=== PATIENT | male | born 1960 | race Caucasian/White ===

== ENCOUNTER 2018-04-15 12:25 | Day surgery (SDC) | payer MEDICAID ==
[~2018-04-15] VITALS: Ht 172.7 cm; Wt 77.7 kg
[2018-04-15] MEDS ORDERED: calcium PO (12:40)
[2018-04-15] MEDS ORDERED: CLOB15CR4 TOP (12:41)
[2018-04-15] MEDS ORDERED: INSU100C10 SQ ×2 (12:44→12:45)
[2018-04-15] MEDS ORDERED: MIDAZolam 5mg/5ml vial ONE (12:47)
[2018-04-15] MEDS ORDERED: fentaNYL/PF 50MCG/1 ML 2ML syringe ONE (12:47)
[2018-04-15] MEDS ORDERED: LIDOcaine Viscous 15ml cup ONE (12:47)
[2018-04-15 12:53] VITALS: BP 146/88
[2018-04-15 13:58] VITALS: BP 137/90
[2018-04-15 14:08] VITALS: BP 139/87
[2018-04-15 14:18] VITALS: BP 126/78
[2018-04-15 14:28] VITALS: BP 113/74
== END 2018-04-15 15:15 | disposition home or self-care (01) ==
LOC: GI LAB 12:25
PROVIDERS: ATTEND Internal Medicine Gastroenterology
DX: B37.81 Candidal esophagitis (principal); I85.00 Esophageal varices without bleeding; K76.6 Portal hypertension; K31.89 Other diseases of stomach and duodenum; D50.0 Iron deficiency anemia secondary to blood loss (chronic); E11.9 Type 2 diabetes mellitus without complications; L40.8 Other psoriasis; Z79.4 Long term (current) use of insulin; Z87.891 Personal history of nicotine dependence; Z79.899 Other long term (current) drug therapy; Z98.890 Other specified postprocedural states
CPT/HCPCS: 43239; 99152; J2250; J3010; J7030; A4620; G0500

== ENCOUNTER 2018-10-18 16:17 | Inpatient (IN) | payer MEDICAID | END 2018-10-27 13:50 | disposition left against medical advice (07) | LOC: ER 16:17 → SUR 3N 10-21 19:22 → ED HOLD 20:33 → ICU 2S 23:18 | DX: A41.9 Sepsis, unspecified organism (principal); K72.00 Acute and subacute hepatic failure without coma; L03.90 Cellulitis, unspecified; K74.60 Unspecified cirrhosis of liver ==

== ENCOUNTER 2018-11-04 15:56 | Inpatient (IN) | payer MEDICAID ==
[~2018-11-04] VITALS: Ht 172.7 cm; Wt 75.0 kg
[~2018-11-04 15:56] MED LIST: CEPH500C5 PO; CLOB15CR4 TOP; FURO40TA4 PO; INSU100C10 SQ
[2018-11-04] MEDS ORDERED: ceFAZolin 1GM/D5W- ADD-VANTAGE 50 ML IV ONE (17:25)
[2018-11-04] MEDS ORDERED: acetaminophen 325mg tablet PO STA (17:32)
--- NOTE | 2018-11-04 17:35 | NUR ---
TO ER WITH C/O LOWER EXTREM EDEMA AND PAIN. 3-4+ EDEMA NOTED TO LOWER EXTREMS. REDNESS AND EXCORIATION TO RIGHT LOWER LEG AND RIGHT THIGH. DIFFICULTY MOVING AROUND. POOR HISTORIAN[place]
[2018-11-04 18:19] LABS: BASOPHILS % (AUTO) 0.2 % (0-1); EOSINOPHILS % (AUTO) 0.1 % (0-6); HEMOGLOBIN 10.9 g/dl (14.0-17.9); LYMPHOCYTES # (AUTO) 0.6 X10'3 (1.1-4.8); MEAN CORPUSCULAR HEMOGLOBIN 36.5 PG (27.0-31.0); MEAN CORPUSCULAR HGB CONC 35.1 g/dL (33.0-36.5); MEAN CORPUSCULAR VOLUME 103.8 FL (78-98); MONOCYTES # (AUTO) 0.2 X10'3 (0-0.9); MONOCYTES % (AUTO) 3.3 % (2-12); NEUTROPHILS # (AUTO) 6.1 X10'3 (1.8-7.7); NEUTROPHILS % (AUTO) 88.4 % (42-75); PLATELET COUNT 106 X10'3 (140-440); RED BLOOD COUNT 2.98 X10'6 (4.70-6.10); RED CELL DISTRIBUTION WIDTH 17.3 % (11.5-14.5); WHITE BLOOD COUNT 6.9 X10'3 (4.5-11.0)
[2018-11-04 18:32] LABS: ALANINE AMINOTRANSFERASE 54 U/L (12-78); ALBUMIN 1.5 G/DL (3.4-5.0); ALKALINE PHOSPHATASE 125 IU/L (46-116); ANION GAP 8 (8-16); BILIRUBIN,TOTAL 5.9 MG/DL (0.1-1.0); BLOOD UREA NITROGEN 12 MG/DL (7-18); BUN/CREATININE RATIO 14.1 (5.4-32.0); CALCIUM 7.3 MG/DL (8.5-10.1); CHLORIDE 101 MMOL/L (99-107); CREATININE 0.85 MG/DL (0.60-1.10); GLUCOSE 122 MG/DL (70-104); PROTHROMBIN TIME 19.7 SECONDS (9.0-12.0); SODIUM 130 MMOL/L (135-145); TOTAL CARBON DIOXIDE 20.7 MMOL/L (24-32); eGFR > 90 ML/MIN
[2018-11-04 18:33] LABS: ALBUMIN/GLOBULIN RATIO 0.3 (1.1-1.5); ASPARTATE AMINO TRANSFERASE 67 U/L (10-37); PARTIAL THROMBOPLASTIN TIME 40 SECONDS (22-32); POTASSIUM 3.1 MMOL/L (3.5-5.1); TOTAL PROTEIN 6.1 G/DL (6.4-8.2)
--- NOTE | 2018-11-04 19:30 | NUR ---
PATIENT HAD ELEVATED LACTIC ACID, VERBALIZED TO DR. SAM THAT THE NS BOLUS WAS GOING SLOW. DR. SAM VERBALIZED THAT THIS IS GOING TO BE FINE THAT WE NEED TO SAVE IV DUE TO PATIENT BEING HARD STICK, AND THAT THE LEVEL OF SEPSIS DR. SAM IS NOT CONCERNED FOR THE 30mL PER KG.
[2018-11-04] MEDS ORDERED: INSU100C10 SQ (19:40)
[2018-11-04] MEDS ORDERED: normal saline 1000ML IV soln IV ONE (20:20)
[2018-11-04] MEDS ORDERED: mag hydrox/Alum hydrox/simeth 30ml oral suspension PO PRN (21:25)
[2018-11-04] MEDS ORDERED: ondansetron/PF 4mg/2ml inj IV PRN (21:25)
[2018-11-04] MEDS ORDERED: morphine 4 MG/ML inj SYRINge IV PRN (21:25)
[2018-11-04] MEDS ORDERED: magnesium hydroxide 30ml (MOM) UD suspension PO PRN (21:25)
[2018-11-04] MEDS ORDERED: acetaminophen 325mg tablet PO PRN (21:25)
[2018-11-04] MEDS ORDERED: insulin Lispro (HumaLOG) vial - multi-dose SQ SCH (21:30)
[2018-11-04] MEDS ORDERED: dextrose ORAL solution 15 GM/59 ML bottle PO PRN ×2 (21:30)
[2018-11-04] MEDS ORDERED: dextrose 50%-water 50ml dispensing syringe IV PRN ×2 (21:30)
[2018-11-04] MEDS ORDERED: MESSAGE TO PHARMACY PO ONE (21:30)
[2018-11-04] MEDS ORDERED: glucagon, human recombinant 1mg kit SUBCUT PRN (21:30)
[2018-11-04 23:15] VITALS: BP 115/63
[2018-11-04] MEDS: ceFAZolin 1GM/D5W- ADD-VANTAGE 50 ML IV SCH (23:23)
[2018-11-05] MEDS: morphine 4 MG/ML inj SYRINge IV PRN ×4 (03:14→19:38)
--- NOTE | 2018-11-05 06:30 | NUR ---
Patient in room BHARAT 357. I have received report from Erin ROSALES and had the opportunity to ask questions and assume patient care.
--- NOTE | 2018-11-05 06:32 | NUR ---
Problems reprioritized. Patient report given, questions answered & plan of care reviewed with BOBBY Grover. Addendum: 11/05/18 at 0632 by Erin Snyder RN Amended: Links added.
[2018-11-05 07:08] LABS: BASOPHILS % (AUTO) 0.2 % (0-1); EOSINOPHILS # (AUTO) 0.1 X10'3 (0-0.9); HEMATOCRIT 27.6 % (42.0-52.0); HEMOGLOBIN 9.8 g/dl (14.0-17.9); LYMPHOCYTES # (AUTO) 0.8 X10'3 (1.1-4.8); LYMPHOCYTES % (AUTO) 13.2 % (21-51); MEAN CORPUSCULAR HGB CONC 35.6 g/dL (33.0-36.5); MEAN CORPUSCULAR VOLUME 104.1 FL (78-98); MONOCYTES # (AUTO) 0.4 X10'3 (0-0.9); MONOCYTES % (AUTO) 6.6 % (2-12); NEUTROPHILS # (AUTO) 4.9 X10'3 (1.8-7.7); PLATELET COUNT 85 X10'3 (140-440); RED BLOOD COUNT 2.65 X10'6 (4.70-6.10); RED CELL DISTRIBUTION WIDTH 17.6 % (11.5-14.5); WHITE BLOOD COUNT 6.2 X10'3 (4.5-11.0)
[2018-11-05 07:32] LABS: ALANINE AMINOTRANSFERASE 42 U/L (12-78); ALBUMIN 1.2 G/DL (3.4-5.0); ALKALINE PHOSPHATASE 99 IU/L (46-116); ANION GAP 9 (8-16); ASPARTATE AMINO TRANSFERASE 50 U/L (10-37); BILIRUBIN,TOTAL 4.9 MG/DL (0.1-1.0); BLOOD UREA NITROGEN 15 MG/DL (7-18); BUN/CREATININE RATIO 17.4 (5.4-32.0); CALCIUM 7.2 MG/DL (8.5-10.1); CHLORIDE 103 MMOL/L (99-107); CREATININE 0.86 MG/DL (0.60-1.10); GLUCOSE 132 MG/DL (70-104); POTASSIUM 3.1 MMOL/L (3.5-5.1); SODIUM 133 MMOL/L (135-145); eGFR > 90 ML/MIN
[2018-11-05 07:34] LABS: ALBUMIN/GLOBULIN RATIO 0.3 (1.1-1.5); TOTAL PROTEIN 5.1 G/DL (6.4-8.2)
[2018-11-05] MEDS: ceFAZolin 1GM/D5W- ADD-VANTAGE 50 ML IV SCH (07:34)
[2018-11-05] MEDS: spironolactone 25 MG tablet PO SCH (07:34)
[2018-11-05 08:14] VITALS: BP 103/59
--- NOTE | 2018-11-05 09:53 | NUR ---
Dr. Davidson informed of positive blood culture from IV 11/04 gram negative rods. No new orders. Also informed MD of K 3.1, stated to replace per protocol.
[2018-11-05] MEDS ORDERED: potassium Cl 20 mEq SR tablet PO PRN (09:55)
[2018-11-05] MEDS ORDERED: potassium Cl 40MEQ/NS 500ml 500 ML IV PRN ×2 (09:55)
[2018-11-05] MEDS: potassium Cl 20 mEq SR tablet PO PRN ×2 (11:47→16:55)
[2018-11-05 11:54] VITALS: BP 107/57
[2018-11-05] MEDS: CEFEPIME 2 GM in NS 100ml IV.SOLN 100 ML IV SCH ×2 (14:00→19:28)
[2018-11-05] MEDS: lactulose 20gm/30ml cup PO SCH ×3 (14:00→20:00)
[2018-11-05 14:58] LABS: HIV ANTIBODY 1&2 RAPID NON-REACTIVE (Neg)
--- NOTE | 2018-11-05 15:32 | NUR ---
paged regarding positive blood culture in anareobic bottle, gram negative rods. Awaiting call back.
--- NOTE | 2018-11-05 15:55 | NUR ---
Extended PIV inserted to the left upper arm basilic vein x 1 attempt ussing ultrasound. Suman well. Addendum: 11/05/18 at 1556 by Yolis Jorgensen RN Amended: Links added.
[2018-11-05] MEDS ORDERED: cefepime 2gm inj IV SCH (16:00)
[2018-11-05] MEDS ORDERED: iohexol 300mg/ml 100ml inj. ONE (16:02)
--- NOTE | 2018-11-05 16:46 | NUR ---
Dr. Davidson informed of CT and Abdomen US results. No new orders at this time.
--- NOTE | 2018-11-05 18:56 | NUR ---
Problems reprioritized. Patient report given, questions answered & plan of care reviewed with Erin ROSALES.
[2018-11-05 19:00] VITALS: BP 126/62
[2018-11-05] MEDS: lactobacillus rhamnosus 10,000 MMU CELLS/CAPSULE PO SCH (19:28)
[2018-11-05] MEDS: insulin glargine (Lantus) pen - multi-dose SQ SCH (20:56)
[2018-11-06] VITALS: BP 106/65
[2018-11-06] MEDS: lactulose 20gm/30ml cup PO SCH ×4 (02:00→19:27)
[2018-11-06] MEDS: CEFEPIME 2 GM in NS 100ml IV.SOLN 100 ML IV SCH ×3 (03:39→19:28)
[2018-11-06] MEDS: morphine 4 MG/ML inj SYRINge IV PRN ×3 (03:47→19:27)
[2018-11-06 04:45] LABS: BASOPHILS % (AUTO) 0.2 % (0-1); EOSINOPHILS # (AUTO) 0.3 X10'3 (0-0.9); EOSINOPHILS % (AUTO) 4.2 % (0-6); HEMATOCRIT 27.6 % (42.0-52.0); HEMOGLOBIN 9.8 g/dl (14.0-17.9); LYMPHOCYTES # (AUTO) 1.1 X10'3 (1.1-4.8); LYMPHOCYTES % (AUTO) 15.7 % (21-51); MEAN CORPUSCULAR HGB CONC 35.7 g/dL (33.0-36.5); MEAN CORPUSCULAR VOLUME 103.8 FL (78-98); MEAN PLATELET VOLUME 7.8 FL (7.4-10.4); MONOCYTES # (AUTO) 1.1 X10'3 (0-0.9); MONOCYTES % (AUTO) 15.8 % (2-12); NEUTROPHILS # (AUTO) 4.5 X10'3 (1.8-7.7); NEUTROPHILS % (AUTO) 64.1 % (42-75); PLATELET COUNT 90 X10'3 (140-440); RED BLOOD COUNT 2.65 X10'6 (4.70-6.10); RED CELL DISTRIBUTION WIDTH 17.7 % (11.5-14.5)
[2018-11-06 04:55] LABS: ALANINE AMINOTRANSFERASE 37 U/L (12-78); ALBUMIN 1.2 G/DL (3.4-5.0); ALKALINE PHOSPHATASE 95 IU/L (46-116); ANION GAP 6 (8-16); ASPARTATE AMINO TRANSFERASE 47 U/L (10-37); BILIRUBIN,TOTAL 4.1 MG/DL (0.1-1.0); BLOOD UREA NITROGEN 15 MG/DL (7-18); BUN/CREATININE RATIO 21.4 (5.4-32.0); CALCIUM 7.1 MG/DL (8.5-10.1); CHLORIDE 104 MMOL/L (99-107); GLUCOSE 110 MG/DL (70-104); POTASSIUM 3.5 MMOL/L (3.5-5.1); SODIUM 134 MMOL/L (135-145); eGFR > 90 ML/MIN
[2018-11-06 05:11] LABS: ALBUMIN/GLOBULIN RATIO 0.3 (1.1-1.5); TOTAL PROTEIN 5.2 G/DL (6.4-8.2)
--- NOTE | 2018-11-06 06:22 | NUR ---
Problems reprioritized. Patient report given, questions answered & plan of care reviewed with BOBBY Robbins. Addendum: 11/06/18 at 0623 by Erin Snyder RN Amended: Links added.
--- NOTE | 2018-11-06 06:29 | NUR ---
Patient in room BHARAT 357. I have received report from BOBBY Khan and had the opportunity to ask questions and assume patient care.
[2018-11-06 07:00] VITALS: BP 123/58
[2018-11-06] MEDS: lactobacillus rhamnosus 10,000 MMU CELLS/CAPSULE PO SCH ×2 (08:46→19:27)
[2018-11-06] MEDS: spironolactone 25 MG tablet PO SCH (08:46)
[2018-11-06 11:00] VITALS: BP 123/75
--- NOTE | 2018-11-06 18:16 | NUR ---
Problems reprioritized. Patient report given, questions answered & plan of care reviewed with BOBBY Wall.
[2018-11-06] MEDS: rifaximin 550mg tablet PO SCH (19:27)
[2018-11-06 20:00] VITALS: BP 128/69
[2018-11-06] MEDS: insulin glargine (Lantus) pen - multi-dose SQ SCH (21:00)
[2018-11-07] VITALS: BP 124/79
[2018-11-07] MEDS: morphine 4 MG/ML inj SYRINge IV PRN ×3 (01:12→19:01)
[2018-11-07] MEDS: lactulose 20gm/30ml cup PO SCH ×4 (02:36→19:42)
[2018-11-07] MEDS: CEFEPIME 2 GM in NS 100ml IV.SOLN 100 ML IV SCH ×3 (04:40→19:42)
[2018-11-07 05:10] LABS: BASOPHILS # (AUTO) 0.1 X10'3 (0-0.2); BASOPHILS % (AUTO) 1.1 % (0-1); EOSINOPHILS # (AUTO) 0.4 X10'3 (0-0.9); EOSINOPHILS % (AUTO) 4.5 % (0-6); HEMATOCRIT 29.6 % (42.0-52.0); HEMOGLOBIN 10.5 g/dl (14.0-17.9); LYMPHOCYTES # (AUTO) 1.5 X10'3 (1.1-4.8); LYMPHOCYTES % (AUTO) 18.3 % (21-51); MEAN CORPUSCULAR HEMOGLOBIN 36.8 PG (27.0-31.0); MEAN CORPUSCULAR HGB CONC 35.4 g/dL (33.0-36.5); MEAN PLATELET VOLUME 7.8 FL (7.4-10.4); MONOCYTES # (AUTO) 1.3 X10'3 (0-0.9); MONOCYTES % (AUTO) 15.8 % (2-12); NEUTROPHILS # (AUTO) 4.9 X10'3 (1.8-7.7); NEUTROPHILS % (AUTO) 60.3 % (42-75); PLATELET COUNT 87 X10'3 (140-440); RED BLOOD COUNT 2.84 X10'6 (4.70-6.10); RED CELL DISTRIBUTION WIDTH 17.8 % (11.5-14.5); WHITE BLOOD COUNT 8.1 X10'3 (4.5-11.0)
[2018-11-07 05:36] LABS: ALANINE AMINOTRANSFERASE 34 U/L (12-78); ALBUMIN 1.2 G/DL (3.4-5.0); ALKALINE PHOSPHATASE 104 IU/L (46-116); ANION GAP 8 (8-16); ASPARTATE AMINO TRANSFERASE 53 U/L (10-37); BILIRUBIN,TOTAL 4.1 MG/DL (0.1-1.0); BLOOD UREA NITROGEN 11 MG/DL (7-18); BUN/CREATININE RATIO 16.7 (5.4-32.0); CALCIUM 7.2 MG/DL (8.5-10.1); CHLORIDE 101 MMOL/L (99-107); CREATININE 0.66 MG/DL (0.60-1.10); GLUCOSE 105 MG/DL (70-104); POTASSIUM 3.5 MMOL/L (3.5-5.1); SODIUM 133 MMOL/L (135-145); TOTAL CARBON DIOXIDE 23.9 MMOL/L (24-32); eGFR > 90 ML/MIN
[2018-11-07 05:44] LABS: ALBUMIN/GLOBULIN RATIO 0.3 (1.1-1.5); TOTAL PROTEIN 5.4 G/DL (6.4-8.2)
--- NOTE | 2018-11-07 06:30 | NUR ---
Patient in room BHARAT 357. I have received report from BOBBY Wall and had the opportunity to ask questions and assume patient care.
[2018-11-07 07:00] VITALS: BP 107/52
[2018-11-07] MEDS: spironolactone 25 MG tablet PO SCH (07:51)
[2018-11-07] MEDS: lactobacillus rhamnosus 10,000 MMU CELLS/CAPSULE PO SCH ×2 (07:51→19:42)
[2018-11-07] MEDS: rifaximin 550mg tablet PO SCH ×2 (07:56→19:42)
[2018-11-07 11:00] VITALS: BP 124/75
[2018-11-07 13:20] LABS: HBSAG SCREEN Positive (Negative); HEP A AB, IGM Negative (Negative); HEP B CORE AB, IGM Negative (Negative); HEPATITIS C ANTIBODY >11.0 s/co ratio (0.0-0.9)
[2018-11-07 18:00] VITALS: BP 107/68
[2018-11-07] MEDS: insulin glargine (Lantus) pen - multi-dose SQ SCH (21:00)
[2018-11-08] VITALS: BP 130/77
[2018-11-08] MEDS: morphine 4 MG/ML inj SYRINge IV PRN ×4 (00:48→19:09)
[2018-11-08] MEDS: lactulose 20gm/30ml cup PO SCH ×4 (02:00→20:41)
[2018-11-08] MEDS: CEFEPIME 2 GM in NS 100ml IV.SOLN 100 ML IV SCH (03:12)
[2018-11-08 04:13] LABS: BASOPHILS # (AUTO) 0.1 X10'3 (0-0.2); EOSINOPHILS # (AUTO) 0.4 X10'3 (0-0.9); EOSINOPHILS % (AUTO) 5.1 % (0-6); HEMATOCRIT 31.4 % (42.0-52.0); HEMOGLOBIN 10.7 g/dl (14.0-17.9); LYMPHOCYTES # (AUTO) 1.3 X10'3 (1.1-4.8); LYMPHOCYTES % (AUTO) 16.9 % (21-51); MEAN CORPUSCULAR HEMOGLOBIN 35.9 PG (27.0-31.0); MEAN CORPUSCULAR HGB CONC 34.1 g/dL (33.0-36.5); MEAN CORPUSCULAR VOLUME 105.2 FL (78-98); MEAN PLATELET VOLUME 8.2 FL (7.4-10.4); MONOCYTES # (AUTO) 1.2 X10'3 (0-0.9); MONOCYTES % (AUTO) 15.5 % (2-12); NEUTROPHILS # (AUTO) 4.8 X10'3 (1.8-7.7); NEUTROPHILS % (AUTO) 61.5 % (42-75); PLATELET COUNT 92 X10'3 (140-440); RED BLOOD COUNT 2.99 X10'6 (4.70-6.10); RED CELL DISTRIBUTION WIDTH 18.1 % (11.5-14.5); WHITE BLOOD COUNT 7.7 X10'3 (4.5-11.0)
[2018-11-08 04:30] LABS: ALANINE AMINOTRANSFERASE 38 U/L (12-78); ALBUMIN 1.3 G/DL (3.4-5.0); ALKALINE PHOSPHATASE 114 IU/L (46-116); ANION GAP 3 (8-16); ASPARTATE AMINO TRANSFERASE 68 U/L (10-37); BILIRUBIN,TOTAL 4.6 MG/DL (0.1-1.0); BLOOD UREA NITROGEN 9 MG/DL (7-18); BUN/CREATININE RATIO 12.7 (5.4-32.0); CALCIUM 6.5 MG/DL (8.5-10.1); CHLORIDE 103 MMOL/L (99-107); CREATININE 0.71 MG/DL (0.60-1.10); GLUCOSE 114 MG/DL (70-104); POTASSIUM 3.6 MMOL/L (3.5-5.1); SODIUM 132 MMOL/L (135-145); TOTAL CARBON DIOXIDE 26.1 MMOL/L (24-32); eGFR > 90 ML/MIN
[2018-11-08 04:33] LABS: ALBUMIN/GLOBULIN RATIO 0.3 (1.1-1.5); TOTAL PROTEIN 5.7 G/DL (6.4-8.2)
--- NOTE | 2018-11-08 06:09 | NUR ---
Patient in room BHARAT 357. I have received report from JOAQUIM ROSALES and had the opportunity to ask questions and assume patient care.
[2018-11-08 07:00] VITALS: BP 135/85
[2018-11-08] MEDS: rifaximin 550mg tablet PO SCH ×2 (08:00→20:41)
[2018-11-08] MEDS: lactobacillus rhamnosus 10,000 MMU CELLS/CAPSULE PO SCH ×2 (08:13→20:41)
[2018-11-08] MEDS: spironolactone 25 MG tablet PO SCH (08:13)
--- NOTE | 2018-11-08 08:20 | NUR ---
XIFAXAN NOT IN OMNIC CELL, PT SPECIFIC BOX, OR BLUE BOX, SENT MESSAGE TO PHARMACY
[2018-11-08] MEDS: CefTRIAXone 2gm/D5W 50ml 50 ML IV SCH (13:42)
[2018-11-08] MEDS: clindamycin-Cleocin 900mg/D5W 50 ML IV SCH ×2 (16:47→23:48)
--- NOTE | 2018-11-08 18:10 | NUR ---
GAVE REPORT TO CHILANGO ROSALES
--- NOTE | 2018-11-08 18:38 | NUR ---
Received report from Kimberley ROSALES pt is eating dinner has visitors at bedside, in no apparent distress, call light within reach
[2018-11-08 19:00] VITALS: BP 111/70
[2018-11-08] MEDS: insulin glargine (Lantus) pen - multi-dose SQ SCH (21:00)
[2018-11-09 00:21] VITALS: BP 119/72
[2018-11-09] MEDS: morphine 4 MG/ML inj SYRINge IV PRN ×5 (01:04→19:58)
[2018-11-09] MEDS: lactulose 20gm/30ml cup PO SCH ×4 (01:36→19:57)
--- NOTE | 2018-11-09 06:25 | NUR ---
Gave report to ana ROSALES pt is awake and alert on RA eating a cracker in no apparent distress, call light and items of freq use within reach.
[2018-11-09 06:53] LABS: BASOPHILS # (AUTO) 0.1 X10'3 (0-0.2); BASOPHILS % (AUTO) 0.9 % (0-1); EOSINOPHILS # (AUTO) 0.4 X10'3 (0-0.9); EOSINOPHILS % (AUTO) 5.3 % (0-6); HEMATOCRIT 31.1 % (42.0-52.0); LYMPHOCYTES # (AUTO) 1.3 X10'3 (1.1-4.8); LYMPHOCYTES % (AUTO) 16.3 % (21-51); MEAN CORPUSCULAR HEMOGLOBIN 36.9 PG (27.0-31.0); MEAN CORPUSCULAR HGB CONC 35.3 g/dL (33.0-36.5); MEAN CORPUSCULAR VOLUME 104.5 FL (78-98); MEAN PLATELET VOLUME 7.9 FL (7.4-10.4); MONOCYTES # (AUTO) 1.3 X10'3 (0-0.9); MONOCYTES % (AUTO) 15.6 % (2-12); NEUTROPHILS % (AUTO) 61.9 % (42-75); PLATELET COUNT 84 X10'3 (140-440); RED BLOOD COUNT 2.98 X10'6 (4.70-6.10); RED CELL DISTRIBUTION WIDTH 17.9 % (11.5-14.5)
[2018-11-09 07:00] VITALS: BP 131/76
[2018-11-09] MEDS: spironolactone 25 MG tablet PO SCH (07:41)
[2018-11-09] MEDS: lactobacillus rhamnosus 10,000 MMU CELLS/CAPSULE PO SCH ×2 (07:41→19:58)
[2018-11-09] MEDS: rifaximin 550mg tablet PO SCH ×2 (07:42→19:58)
[2018-11-09] MEDS: clindamycin-Cleocin 900mg/D5W 50 ML IV SCH ×3 (07:42→23:37)
[2018-11-09] MEDS ORDERED: furosemide 20 MG/2 ML vial IV SCH (08:00)
[2018-11-09] MEDS: CefTRIAXone 2gm/D5W 50ml 50 ML IV SCH (08:56)
[2018-11-09 09:23] LABS: ALANINE AMINOTRANSFERASE 40 U/L (12-78); ALBUMIN 1.2 G/DL (3.4-5.0); ALKALINE PHOSPHATASE 114 IU/L (46-116); ANION GAP 8 (8-16); ASPARTATE AMINO TRANSFERASE 86 U/L (10-37); BILIRUBIN,TOTAL 3.4 MG/DL (0.1-1.0); BLOOD UREA NITROGEN 9 MG/DL (7-18); BUN/CREATININE RATIO 12.7 (5.4-32.0); CHLORIDE 102 MMOL/L (99-107); CREATININE 0.71 MG/DL (0.60-1.10); GLUCOSE 143 MG/DL (70-104); POTASSIUM 3.9 MMOL/L (3.5-5.1); SODIUM 133 MMOL/L (135-145); TOTAL CARBON DIOXIDE 23.3 MMOL/L (24-32); eGFR > 90 ML/MIN
[2018-11-09 09:25] LABS: ALBUMIN/GLOBULIN RATIO 0.3 (1.1-1.5); TOTAL PROTEIN 5.6 G/DL (6.4-8.2)
[2018-11-09 09:54] LABS: ANISOCYTOSIS 1+; PLATELET ESTIMATE DECREASED; POLYCHROMASIA FEW; ROULEAUX 1+; TOTAL CELLS COUNTED 100
[2018-11-09 09:55] LABS: POIKILOCYTOSIS FEW; TOXIC GRANULATION 2+
--- NOTE | 2018-11-09 14:42 | NUR ---
Initial: Pt admit with anasarca, liver failure and bilat cellulitis. Per MD progress notes cellulitis positive blood cultures for Escherichia coli. Per MD progress notes pt with hepatic enceph and pt's cognition is markedly improved, on Lactulose. Per MD notes pt with thickening of the distal colon thought initially to be a rectal mass on CT of 10/18/2018, pt with repeat CT thought to possibly be infectious colitis however per Infectious Disease pt unlikely to have C.diff. Pt currently on mech soft diet with documented PO intake 75-100% meeting nutrient needs with adequate protein to aid in skin integrity. [facility] 11/08. Will continue to follow and make recommendations as appropriate. Recommendations: 1) Continue with mech soft diet 2) Wt per rx Addendum: 11/09/18 at [address] Amended: Links added.
--- NOTE | 2018-11-09 18:18 | NUR ---
Problems reprioritized. Patient report given, questions answered & plan of care reviewed with CHILANGO ROSALES.
--- NOTE | 2018-11-09 18:40 | NUR ---
Received report from Gwendolyn ROSALES pt is awake on RA getting ready to eat dinner, in no apparent distress,
[2018-11-09 19:00] VITALS: BP 130/82
[2018-11-09] MEDS: insulin glargine (Lantus) pen - multi-dose SQ SCH (21:00)
[2018-11-09] MEDS: furosemide 20 MG/2 ML vial IV SCH (22:19)
--- NOTE | 2018-11-09 23:34 | NUR ---
Spoke with Dr. Mancera regarding pain medication for pt he reordered morphine 2mg Q4H due to pt requesting continuity of medication.
[2018-11-09] MEDS: morphine 2 MG/ML inj. syringe IV PRN (23:57)
[2018-11-10 00:28] VITALS: BP 142/89
[2018-11-10] MEDS: lactulose 20gm/30ml cup PO SCH ×3 (01:29→19:56)
[2018-11-10] MEDS: morphine 2 MG/ML inj. syringe IV PRN ×4 (04:27→19:54)
--- NOTE | 2018-11-10 06:30 | NUR ---
Patient in room BHARAT 357. I have received report from Oumou ROSALES and had the opportunity to ask questions and assume patient care.
--- NOTE | 2018-11-10 06:33 | NUR ---
Gave report to Porter ROSALES pt is awake requesting milk and ice cream, on RA in no apparent distress, call light and items of freq use within reach.
[2018-11-10 07:02] LABS: ALANINE AMINOTRANSFERASE 43 U/L (12-78); ALBUMIN 1.3 G/DL (3.4-5.0); ALKALINE PHOSPHATASE 125 IU/L (46-116); ANION GAP 5 (8-16); ASPARTATE AMINO TRANSFERASE 98 U/L (10-37); BILIRUBIN,TOTAL 3.8 MG/DL (0.1-1.0); BLOOD UREA NITROGEN 11 MG/DL (7-18); BUN/CREATININE RATIO 16.9 (5.4-32.0); CALCIUM 7.3 MG/DL (8.5-10.1); CHLORIDE 102 MMOL/L (99-107); CREATININE 0.65 MG/DL (0.60-1.10); SODIUM 133 MMOL/L (135-145); TOTAL CARBON DIOXIDE 25.7 MMOL/L (24-32); eGFR > 90 ML/MIN
[2018-11-10 07:22] LABS: ALBUMIN/GLOBULIN RATIO 0.3 (1.1-1.5); GLUCOSE 115 MG/DL (70-104)
[2018-11-10 07:51] VITALS: BP 142/88
[2018-11-10] MEDS: spironolactone 25 MG tablet PO SCH (09:23)
[2018-11-10] MEDS: lactobacillus rhamnosus 10,000 MMU CELLS/CAPSULE PO SCH ×2 (09:23→19:54)
[2018-11-10] MEDS: rifaximin 550mg tablet PO SCH ×2 (09:23→20:07)
[2018-11-10] MEDS: furosemide 20 MG/2 ML vial IV SCH ×2 (09:24→19:56)
[2018-11-10] MEDS: clindamycin-Cleocin 900mg/D5W 50 ML IV SCH ×2 (09:24→17:11)
[2018-11-10] MEDS: CefTRIAXone 2gm/D5W 50ml 50 ML IV SCH (10:38)
[2018-11-10 12:00] VITALS: BP 137/94
--- NOTE | 2018-11-10 18:30 | NUR ---
Patient in room BHARAT 357. I have received report from Porter ROSALES and had the opportunity to ask questions and assume patient care. Patient eating dinner, will continue to monitor.
--- NOTE | 2018-11-10 18:59 | NUR ---
Problems reprioritized. Patient report given, questions answered & plan of care reviewed with ELLIS ROSALES.
[2018-11-10 19:00] VITALS: BP 132/82
[2018-11-10] MEDS: insulin glargine (Lantus) pen - multi-dose SQ SCH (21:00)
[2018-11-11] VITALS: BP 129/79
[2018-11-11] MEDS: clindamycin-Cleocin 900mg/D5W 50 ML IV SCH ×4 (00:25→23:54)
[2018-11-11] MEDS: morphine 2 MG/ML inj. syringe IV PRN ×5 (00:32→21:06)
[2018-11-11] MEDS: lactulose 20gm/30ml cup PO SCH ×4 (02:36→20:00)
--- NOTE | 2018-11-11 06:30 | NUR ---
Patient in room BHARAT 357. I have received report from BOBBY Briggs and had the opportunity to ask questions and assume patient care. Addendum: 11/11/18 at 1846 by Itzel Hilario RN BOBBY Johnson
--- NOTE | 2018-11-11 06:30 | NUR ---
Problems reprioritized. Patient report given, questions answered & plan of care reviewed with Itzel RN. Patient resting eyes closed respirations even.
[2018-11-11 06:39] LABS: BASOPHILS # (AUTO) 0.1 X10'3 (0-0.2); BASOPHILS % (AUTO) 0.8 % (0-1); EOSINOPHILS # (AUTO) 0.2 X10'3 (0-0.9); EOSINOPHILS % (AUTO) 2.5 % (0-6); HEMATOCRIT 33.3 % (42.0-52.0); HEMOGLOBIN 11.6 g/dl (14.0-17.9); LYMPHOCYTES # (AUTO) 1.3 X10'3 (1.1-4.8); MEAN CORPUSCULAR HEMOGLOBIN 36.4 PG (27.0-31.0); MEAN CORPUSCULAR HGB CONC 34.7 g/dL (33.0-36.5); MEAN CORPUSCULAR VOLUME 104.9 FL (78-98); MEAN PLATELET VOLUME 7.9 FL (7.4-10.4); MONOCYTES # (AUTO) 1.1 X10'3 (0-0.9); MONOCYTES % (AUTO) 13.2 % (2-12); NEUTROPHILS # (AUTO) 5.9 X10'3 (1.8-7.7); NEUTROPHILS % (AUTO) 68.5 % (42-75); PLATELET COUNT 92 X10'3 (140-440); RED BLOOD COUNT 3.17 X10'6 (4.70-6.10); RED CELL DISTRIBUTION WIDTH 19.1 % (11.5-14.5); WHITE BLOOD COUNT 8.7 X10'3 (4.5-11.0)
[2018-11-11 06:49] LABS: PROTHROMBIN TIME 17.8 SECONDS (9.0-12.0)
[2018-11-11 06:50] LABS: INR 1.8 INR
[2018-11-11 07:00] VITALS: BP 139/89
[2018-11-11 07:11] LABS: ALANINE AMINOTRANSFERASE 48 U/L (12-78); ALBUMIN 1.3 G/DL (3.4-5.0); ALKALINE PHOSPHATASE 133 IU/L (46-116); ANION GAP 4 (8-16); ASPARTATE AMINO TRANSFERASE 114 U/L (10-37); BILIRUBIN,TOTAL 4.2 MG/DL (0.1-1.0); BLOOD UREA NITROGEN 11 MG/DL (7-18); BUN/CREATININE RATIO 16.7 (5.4-32.0); CALCIUM 7.3 MG/DL (8.5-10.1); CHLORIDE 100 MMOL/L (99-107); CREATININE 0.66 MG/DL (0.60-1.10); SODIUM 131 MMOL/L (135-145); TOTAL CARBON DIOXIDE 26.7 MMOL/L (24-32); eGFR > 90 ML/MIN
[2018-11-11 07:18] LABS: ALBUMIN/GLOBULIN RATIO 0.3 (1.1-1.5); GLUCOSE 97 MG/DL (70-104); TOTAL PROTEIN 6.3 G/DL (6.4-8.2)
[2018-11-11] MEDS: rifaximin 550mg tablet PO SCH ×2 (08:04→19:58)
[2018-11-11] MEDS: lactobacillus rhamnosus 10,000 MMU CELLS/CAPSULE PO SCH ×2 (08:04→19:58)
[2018-11-11] MEDS: spironolactone 25 MG tablet PO SCH (08:04)
[2018-11-11] MEDS: furosemide 20 MG/2 ML vial IV SCH ×2 (08:06→20:00)
[2018-11-11] MEDS: CefTRIAXone 2gm/D5W 50ml 50 ML IV SCH (08:06)
[2018-11-11] MEDS ORDERED: LIDOcaine 1%/PF 5ML 10 MG/ML VIAL ONE (08:08)
[2018-11-11 08:11] LABS: ANISOCYTOSIS 2+; PLATELET ESTIMATE DECREASED
[2018-11-11 11:00] VITALS: BP 127/79
--- NOTE | 2018-11-11 18:44 | NUR ---
Problems reprioritized. Patient report given, questions answered & plan of care reviewed with BOBBY Khan.
--- NOTE | 2018-11-11 19:51 | NUR ---
Patient in room BHARAT 357. I have received report from BOBBY Robbins and had the opportunity to ask questions and assume patient care. Addendum: 11/11/18 at 1951 by Erin Snyder RN Amended: Links added.
[2018-11-11 20:00] VITALS: BP 133/82
[2018-11-11] MEDS: insulin glargine (Lantus) pen - multi-dose SQ SCH (21:00)
[2018-11-12] VITALS: BP 131/71
[2018-11-12] MEDS: morphine 2 MG/ML inj. syringe IV PRN ×3 (01:23→12:15)
[2018-11-12] MEDS: lactulose 20gm/30ml cup PO SCH ×4 (02:00→19:35)
--- NOTE | 2018-11-12 06:00 | NUR ---
Patient in room BHARAT 357. I have received report from Karoline ROSALES and had the opportunity to ask questions and assume patient care.
--- NOTE | 2018-11-12 06:15 | NUR ---
Problems reprioritized. Patient report given, questions answered & plan of care reviewed with BOBBY Grover. Addendum: 11/12/18 at 0615 by Erin Snyder RN Amended: Links added.
[2018-11-12 06:53] LABS: ALANINE AMINOTRANSFERASE 45 U/L (12-78); ALBUMIN 1.2 G/DL (3.4-5.0); ALBUMIN/GLOBULIN RATIO 0.3 (1.1-1.5); ALKALINE PHOSPHATASE 125 IU/L (46-116); ANION GAP 4 (8-16); ASPARTATE AMINO TRANSFERASE 103 U/L (10-37); BILIRUBIN,TOTAL 3.2 MG/DL (0.1-1.0); BLOOD UREA NITROGEN 12 MG/DL (7-18); BUN/CREATININE RATIO 18.5 (5.4-32.0); CHLORIDE 101 MMOL/L (99-107); CREATININE 0.65 MG/DL (0.60-1.10); GLUCOSE 109 MG/DL (70-104); POTASSIUM 3.8 MMOL/L (3.5-5.1); SODIUM 131 MMOL/L (135-145); TOTAL CARBON DIOXIDE 25.8 MMOL/L (24-32); TOTAL PROTEIN 5.7 G/DL (6.4-8.2); eGFR > 90 ML/MIN
[2018-11-12] MEDS: lactobacillus rhamnosus 10,000 MMU CELLS/CAPSULE PO SCH ×2 (07:46→19:31)
[2018-11-12] MEDS: rifaximin 550mg tablet PO SCH ×2 (07:46→19:31)
[2018-11-12] MEDS: clindamycin-Cleocin 900mg/D5W 50 ML IV SCH ×3 (07:46→23:23)
[2018-11-12] MEDS: spironolactone 25 MG tablet PO SCH (07:46)
[2018-11-12] MEDS: furosemide 20 MG/2 ML vial IV SCH ×2 (07:47→19:34)
[2018-11-12 07:58] VITALS: BP 146/82
[2018-11-12] MEDS: CefTRIAXone 2gm/D5W 50ml 50 ML IV SCH (08:58)
[2018-11-12 11:48] VITALS: BP 130/80
[2018-11-12] MEDS: oxyCODONE IR 5mg (immed. release) tablet PO PRN ×2 (16:23→20:22)
--- NOTE | 2018-11-12 18:19 | NUR ---
Problems reprioritized. Patient report given, questions answered & plan of care reviewed with Erin ROSALES.
--- NOTE | 2018-11-12 18:24 | NUR ---
Student documentation: I have reviewed and agree with all interventions, assessments performed and documented by Myrna Student Nurse. Student Medication Administration: For this medication-pass time frame, all medication were reviewed, dispensed, administered and documented per hospital policy by Myrna Student Nurse.
[2018-11-12 19:00] VITALS: BP 124/83
[2018-11-12] MEDS: insulin glargine (Lantus) pen - multi-dose SQ SCH (19:35)
--- NOTE | 2018-11-12 21:47 | NUR ---
Patient in room BHARAT 357. I have received report from BOBBY Grover and had the opportunity to ask questions and assume patient care. Addendum: 11/12/18 at 2147 by Erin Snyder RN Amended: Links added.
[2018-11-13 00:07] VITALS: BP 125/83
[2018-11-13] MEDS: lactulose 20gm/30ml cup PO SCH ×4 (02:00→20:05)
[2018-11-13] MEDS: oxyCODONE IR 5mg (immed. release) tablet PO PRN ×5 (02:19→20:05)
--- NOTE | 2018-11-13 06:15 | NUR ---
Problems reprioritized. Patient report given, questions answered & plan of care reviewed with BOBBY Grover. Addendum: 11/13/18 at 0616 by Erin nSyder RN Amended: Links added.
--- NOTE | 2018-11-13 06:35 | NUR ---
Patient in room BHARAT 357. I have received report from Erin ROSALES and had the opportunity to ask questions and assume patient care.
[2018-11-13] MEDS: furosemide 20 MG/2 ML vial IV SCH ×2 (07:20→20:06)
[2018-11-13] MEDS: lactobacillus rhamnosus 10,000 MMU CELLS/CAPSULE PO SCH ×2 (07:20→20:05)
[2018-11-13] MEDS: rifaximin 550mg tablet PO SCH ×2 (07:20→20:04)
[2018-11-13] MEDS: clindamycin-Cleocin 900mg/D5W 50 ML IV SCH ×2 (07:20→16:08)
[2018-11-13 07:31] VITALS: BP 124/64
[2018-11-13] MEDS: spironolactone 25 MG tablet PO SCH (08:26)
[2018-11-13] MEDS: CefTRIAXone 2gm/D5W 50ml 50 ML IV SCH (08:26)
[2018-11-13 11:25] VITALS: BP 130/67
--- NOTE | 2018-11-13 18:22 | NUR ---
Problems reprioritized. Patient report given, questions answered & plan of care reviewed with Diane ROSALES.
[2018-11-13 20:01] VITALS: BP 116/73
[2018-11-13] MEDS: insulin glargine (Lantus) pen - multi-dose SQ SCH (20:27)
[2018-11-14] VITALS: BP 117/69
[2018-11-14] MEDS: oxyCODONE IR 5mg (immed. release) tablet PO PRN ×6 (00:02→22:17)
[2018-11-14] MEDS: clindamycin-Cleocin 900mg/D5W 50 ML IV SCH ×3 (00:02→17:21)
[2018-11-14] MEDS: lactulose 20gm/30ml cup PO SCH ×4 (01:49→19:45)
[2018-11-14 05:48] LABS: BASOPHILS # (AUTO) 0.1 X10'3 (0-0.2); BASOPHILS % (AUTO) 1.1 % (0-1); EOSINOPHILS # (AUTO) 0.2 X10'3 (0-0.9); EOSINOPHILS % (AUTO) 2.1 % (0-6); HEMATOCRIT 29.1 % (42.0-52.0); HEMOGLOBIN 10.1 g/dl (14.0-17.9); LYMPHOCYTES # (AUTO) 1.5 X10'3 (1.1-4.8); MEAN CORPUSCULAR HEMOGLOBIN 36.9 PG (27.0-31.0); MEAN CORPUSCULAR HGB CONC 34.8 g/dL (33.0-36.5); MEAN PLATELET VOLUME 7.9 FL (7.4-10.4); MONOCYTES # (AUTO) 0.8 X10'3 (0-0.9); NEUTROPHILS # (AUTO) 5.1 X10'3 (1.8-7.7); NEUTROPHILS % (AUTO) 66.8 % (42-75); PLATELET COUNT 96 X10'3 (140-440); RED BLOOD COUNT 2.75 X10'6 (4.70-6.10); RED CELL DISTRIBUTION WIDTH 19.6 % (11.5-14.5); WHITE BLOOD COUNT 7.7 X10'3 (4.5-11.0)
[2018-11-14 05:59] LABS: ALANINE AMINOTRANSFERASE 49 U/L (12-78); ALBUMIN 1.1 G/DL (3.4-5.0); ALBUMIN/GLOBULIN RATIO 0.2 (1.1-1.5); ALKALINE PHOSPHATASE 135 IU/L (46-116); ANION GAP 5 (8-16); ASPARTATE AMINO TRANSFERASE 113 U/L (10-37); BILIRUBIN,TOTAL 2.6 MG/DL (0.1-1.0); BLOOD UREA NITROGEN 11 MG/DL (7-18); BUN/CREATININE RATIO 15.9 (5.4-32.0); CALCIUM 6.8 MG/DL (8.5-10.1); CHLORIDE 102 MMOL/L (99-107); CREATININE 0.69 MG/DL (0.60-1.10); POTASSIUM 3.6 MMOL/L (3.5-5.1); SODIUM 134 MMOL/L (135-145); TOTAL CARBON DIOXIDE 27.2 MMOL/L (24-32); TOTAL PROTEIN 5.7 G/DL (6.4-8.2); eGFR > 90 ML/MIN
[2018-11-14 06:00] LABS: GLUCOSE 150 MG/DL (70-104)
--- NOTE | 2018-11-14 06:25 | NUR ---
Problems reprioritized. Patient report given, questions answered & plan of care reviewed with BOBBY Powers. Addendum: 11/14/18 at 0626 by Simona Angulo RN Amended: Links added.
--- NOTE | 2018-11-14 06:52 | NUR ---
Patient in room BHARAT 357. I have received report from Diane ROSALES and had the opportunity to ask questions and assume patient care.
[2018-11-14 07:19] VITALS: BP 131/81
[2018-11-14 07:47] LABS: ANISOCYTOSIS 2+; PLATELET ESTIMATE DECREASED
[2018-11-14] MEDS: rifaximin 550mg tablet PO SCH ×2 (07:57→19:45)
[2018-11-14] MEDS: lactobacillus rhamnosus 10,000 MMU CELLS/CAPSULE PO SCH ×2 (07:57→19:45)
[2018-11-14] MEDS: spironolactone 25 MG tablet PO SCH (07:57)
[2018-11-14] MEDS: furosemide 20 MG/2 ML vial IV SCH ×2 (09:13→19:46)
[2018-11-14] MEDS: CefTRIAXone 2gm/D5W 50ml 50 ML IV SCH (09:13)
--- NOTE | 2018-11-14 10:28 | NUR ---
Student Medication Administration: For this medication-pass time frame, all medication were reviewed, dispensed, administered and documented per hospital policy by Mae [facility].
--- NOTE | 2018-11-14 11:31 | NUR ---
reassessment: Pt PO 100% mechanical soft diet meeting needs. JOSE d/jody RN for thiamin/folic/MVI per MD approval given etoh hx w/ ESLD. Pt positive for hepatitis w/ RLE cellulitis and RLE/LLE +3 edema. Poor prognosis w/ possible hospice consideration per MD note. [facility] 11/13. Will continue to monitor. Recommendations: 1) Continue with mech soft diet 2) Wt per rx Addendum: 11/14/18 at [address] Amended: Links added. Addendum: 11/14/18 at [address] reassessment: Pt PO 100% mechanical soft diet meeting needs. JOSE yo/jody RN for thiamin/folic/MVI per MD approval given etoh hx w/ ESLD. Pt positive for hepatitis w/ RLE cellulitis and RLE/LLE +3 edema. Poor prognosis w/ possible hospice consideration per MD note. [facility] 11/13. Will continue to monitor. Recommendations: 1) Continue with mech soft diet 2) thiamin/folic/MVI for etoh per MD 3) Wt per rx
[2018-11-14 12:11] VITALS: BP 96/52
[2018-11-14 18:00] VITALS: BP 129/76
--- NOTE | 2018-11-14 18:25 | NUR ---
Patient in room BHARAT 357. I have received report from Priya ROSALES and had the opportunity to ask questions and assume patient care.
--- NOTE | 2018-11-14 18:39 | NUR ---
Problems reprioritized. Patient report given, questions answered & plan of care reviewed with Porsche ROSALES .
[2018-11-14] MEDS: insulin glargine (Lantus) pen - multi-dose SQ SCH (21:00)
[2018-11-15] VITALS: BP 133/63
[2018-11-15] MEDS: lactulose 20gm/30ml cup PO SCH ×4 (01:26→20:41)
[2018-11-15] MEDS: clindamycin-Cleocin 900mg/D5W 50 ML IV SCH ×3 (01:26→15:58)
[2018-11-15] MEDS: oxyCODONE IR 5mg (immed. release) tablet PO PRN ×4 (03:11→17:51)
--- NOTE | 2018-11-15 06:37 | NUR ---
Problems reprioritized. Patient report given, questions answered & plan of care reviewed with Gwendolyn ROSALES.
[2018-11-15 07:00] VITALS: BP 100/45
[2018-11-15] MEDS: spironolactone 25 MG tablet PO SCH (08:03)
[2018-11-15] MEDS: folic acid 1mg tablet PO SCH (08:03)
[2018-11-15] MEDS: multivitamins, therapeutics tablet PO SCH (08:03)
[2018-11-15] MEDS: lactobacillus rhamnosus 10,000 MMU CELLS/CAPSULE PO SCH ×2 (08:03→20:41)
[2018-11-15] MEDS: thiamine 100mg tablet PO SCH (08:03)
[2018-11-15] MEDS: furosemide 20 MG/2 ML vial IV SCH (08:04)
[2018-11-15] MEDS: rifaximin 550mg tablet PO SCH ×2 (08:07→20:41)
[2018-11-15] MEDS: CefTRIAXone 2gm/D5W 50ml 50 ML IV SCH (09:19)
[2018-11-15 11:07] VITALS: BP 107/60
[2018-11-15] MEDS ORDERED: ondansetron 4mg rapidly disintigrating tab PO PRN (18:10)
--- NOTE | 2018-11-15 18:20 | NUR ---
Problems reprioritized. Patient report given, questions answered & plan of care reviewed with Gwendolyn ROSALES.
--- NOTE | 2018-11-15 18:24 | NUR ---
Problems reprioritized. Patient report given, questions answered & plan of care reviewed with kusum nugent.
[2018-11-15] MEDS: morphine 10mg/0.5ml (conc. morphine) oral syringe PO PRN (18:52)
[2018-11-15 20:00] VITALS: BP 115/56
[2018-11-15] MEDS: furosemide 40mg tablet PO SCH (20:41)
[2018-11-16] MEDS: lactulose 20gm/30ml cup PO SCH ×4 (01:14→19:06)
[2018-11-16] MEDS: oxyCODONE IR 5mg (immed. release) tablet PO PRN ×5 (01:14→23:13)
--- NOTE | 2018-11-16 06:07 | NUR ---
Problems reprioritized. Patient report given, questions answered & plan of care reviewed with Gwendolyn ROSALES.
--- NOTE | 2018-11-16 06:18 | NUR ---
Patient in room BHARAT 357. I have received report from MARCIA ROSALES and had the opportunity to ask questions and assume patient care.
[2018-11-16 07:00] VITALS: BP 121/68
[2018-11-16] MEDS: multivitamins, therapeutics tablet PO SCH (08:12)
[2018-11-16] MEDS: furosemide 40mg tablet PO SCH ×2 (08:12→19:06)
[2018-11-16] MEDS: rifaximin 550mg tablet PO SCH ×2 (08:13→19:06)
[2018-11-16] MEDS: spironolactone 25 MG tablet PO SCH (08:13)
[2018-11-16] MEDS: thiamine 100mg tablet PO SCH (08:13)
[2018-11-16] MEDS: folic acid 1mg tablet PO SCH (08:13)
[2018-11-16] MEDS: lactobacillus rhamnosus 10,000 MMU CELLS/CAPSULE PO SCH ×2 (08:13→19:06)
[2018-11-16] MEDS: morphine 10mg/0.5ml (conc. morphine) oral syringe PO PRN (10:49)
[2018-11-16 18:00] VITALS: BP 126/71
--- NOTE | 2018-11-16 18:15 | NUR ---
Patient in room BHARAT 357. I have received report from Gwendolyn ROSALES and had the opportunity to ask questions and assume patient care.
--- NOTE | 2018-11-16 21:50 | NUR ---
Problems reprioritized. Patient report given, questions answered & plan of care reviewed with Yue ROSALES.
--- NOTE | 2018-11-16 21:53 | NUR ---
Patient in room BHARAT 357. I have received report from Shashank Morrell and had the opportunity to ask questions and assume patient care. Addendum: 11/16/18 at 2154 by Yue Mathur RN Amended: Links added.
[2018-11-17] VITALS: BP 119/76
[2018-11-17] MEDS: lactulose 20gm/30ml cup PO SCH ×4 (02:16→20:00)
[2018-11-17] MEDS: oxyCODONE IR 5mg (immed. release) tablet PO PRN ×4 (06:06→20:14)
--- NOTE | 2018-11-17 06:27 | NUR ---
Problems reprioritized. Patient report given, questions answered & plan of care reviewed with Susie ROSALES. Addendum: 11/17/18 at 0628 by Yue Mathur RN Amended: Links added.
--- NOTE | 2018-11-17 06:32 | NUR ---
I have received report from Yue ROSALES and had the opportunity to ask questions and assume patient care.
[2018-11-17 08:00] VITALS: BP 100/59
[2018-11-17] MEDS: furosemide 40mg tablet PO SCH ×2 (08:08→20:14)
[2018-11-17] MEDS: spironolactone 25 MG tablet PO SCH (08:08)
[2018-11-17] MEDS: folic acid 1mg tablet PO SCH (08:08)
[2018-11-17] MEDS: thiamine 100mg tablet PO SCH (08:08)
[2018-11-17] MEDS: lactobacillus rhamnosus 10,000 MMU CELLS/CAPSULE PO SCH ×2 (08:08→20:14)
[2018-11-17] MEDS: multivitamins, therapeutics tablet PO SCH (08:09)
[2018-11-17] MEDS: rifaximin 550mg tablet PO SCH ×2 (08:09→20:14)
--- NOTE | 2018-11-17 10:09 | NUR ---
Patient is up to bathroom with gas and BM. Addendum: 11/17/18 at 1010 by Susie Ferguson RN Amended: Links added.
[2018-11-17 11:38] VITALS: BP 103/71
--- NOTE | 2018-11-17 12:58 | NUR ---
Patient has had 5 Loose BM today, refused Lactulose
--- NOTE | 2018-11-17 15:57 | NUR ---
Pt has been made palliative/comfort care. [facility] 11/17. Will continue to follow per protocol. Recommendations: 1) Continue with [facility] soft diet per MD 2) routine bowel care Addendum: 11/17/18 at [address] Amended: Links added.
--- NOTE | 2018-11-17 18:14 | NUR ---
Problems reprioritized. Patient report given, questions answered & plan of care reviewed with Mae ROSALES.
[2018-11-17 20:00] VITALS: BP 105/48
[2018-11-17] MEDS: morphine 10mg/0.5ml (conc. morphine) oral syringe PO PRN ×2 (21:19→23:36)
[2018-11-18] MEDS: lactulose 20gm/30ml cup PO SCH ×4 (02:00→19:21)
[2018-11-18] MEDS: oxyCODONE IR 5mg (immed. release) tablet PO PRN ×5 (02:31→22:07)
--- NOTE | 2018-11-18 06:23 | NUR ---
Problems reprioritized. Patient report given, questions answered & plan of care reviewed with Susie ROSALES and Student nurse Myrna ROSALES.
--- NOTE | 2018-11-18 06:25 | NUR ---
Patient in room BHARAT 357. I have received report from Mae ROSALES and had the opportunity to ask questions and assume patient care.
--- NOTE | 2018-11-18 06:43 | NUR ---
I have received report from Mae ROSALES and had the opportunity to ask questions and assume patient care.
[2018-11-18] MEDS: thiamine 100mg tablet PO SCH (07:48)
[2018-11-18] MEDS: folic acid 1mg tablet PO SCH (07:48)
[2018-11-18] MEDS: furosemide 40mg tablet PO SCH ×2 (07:48→19:24)
[2018-11-18] MEDS: multivitamins, therapeutics tablet PO SCH (07:48)
[2018-11-18] MEDS: spironolactone 25 MG tablet PO SCH (07:48)
[2018-11-18] MEDS: lactobacillus rhamnosus 10,000 MMU CELLS/CAPSULE PO SCH ×2 (07:48→19:24)
[2018-11-18] MEDS: rifaximin 550mg tablet PO SCH ×2 (07:49→19:24)
[2018-11-18 08:00] VITALS: BP 108/59
[2018-11-18 11:30] VITALS: BP 102/71
--- NOTE | 2018-11-18 12:00 | NUR ---
Patient discharge set up for 11/19/18 at 0630 for transport to facility.
[2018-11-18 20:00] VITALS: BP 96/56
[2018-11-19] MEDS: lactulose 20gm/30ml cup PO SCH (02:00)
[2018-11-19] MEDS: oxyCODONE IR 5mg (immed. release) tablet PO PRN (03:29)
--- NOTE | 2018-11-19 05:00 | NUR ---
Patient showered and packed, Ready for crop picker. [facility] called crop picker changed to 0530 this morning.
--- NOTE | 2018-11-19 05:40 | NUR ---
[facility] picked up patient. All belongings sent with patient.
--- NOTE | 2018-11-19 05:45 | NUR ---
Report called to [facility] to Nursing supervisor cigar making hand Jeannine.
== END 2018-11-19 05:52 | DRG 720 ==
LOC: ER 15:57 → ED HOLD 21:25 → SUR 3N 22:30 → CMPBEDREQ 22:38
PROVIDERS: ADMIT Internal Medicine; ATTEND Family Medicine
PROC: BW211ZZ Computerized Tomography (CT Scan) of Abdomen and Pelvis using Low Osmolar Contrast (ICD-10-PCS; principal; 2018-11-05)
DX: A41.51 Sepsis due to Escherichia coli [E. coli] (principal); D69.6 Thrombocytopenia, unspecified; K70.31 Alcoholic cirrhosis of liver with ascites; B19.20 Unspecified viral hepatitis C without hepatic coma; B35.1 Tinea unguium; E11.9 Type 2 diabetes mellitus without complications; L03.115 Cellulitis of right lower limb; K72.90 Hepatic failure, unspecified without coma; F10.10 Alcohol abuse, uncomplicated; K52.9 Noninfective gastroenteritis and colitis, unspecified; E87.6 Hypokalemia; Z51.5 Encounter for palliative care; Z60.2 Problems related to living alone; M99.06 Segmental and somatic dysfunction of lower extremity; I89.0 Lymphedema, not elsewhere classified; K42.9 Umbilical hernia without obstruction or gangrene; R14.0 Abdominal distension (gaseous); L03.116 Cellulitis of left lower limb; Z59.0 Homelessness; Z87.891 Personal history of nicotine dependence; Z79.4 Long term (current) use of insulin
CPT/HCPCS: 36415; 71045; 74177; 76700; 76705; 80053; 80074; 82140; 82378; 82948; 83605; 84145; 85025; 85610; 85730; 86703; 87040; 87070; 87077; 87186; 93306; 96361; 96365; 97116; 97161; 97530; 99285; G0378; J0690; J0692; J0696; J1815; J1940; J2001; J2270; J3490; Q9967

== ENCOUNTER 2019-07-30 08:57 | Emergency (ER) | payer MEDICAID ==
[~2019-07-30] VITALS: Ht 172.7 cm; Wt 82.7 kg
[2019-07-30] MEDS ORDERED: oxyCODONE IR 5mg (immed. release) tablet PO ONE (09:50)
[2019-07-30 10:35] LABS: BASOPHILS # (AUTO) 0.1 X10'3 (0-0.2); EOSINOPHILS # (AUTO) 0.1 X10'3 (0-0.9); EOSINOPHILS % (AUTO) 1.8 % (0-6); HEMATOCRIT 35.4 % (42.0-52.0); HEMOGLOBIN 12.6 g/dl (14.0-17.9); LYMPHOCYTES # (AUTO) 1.1 X10'3 (1.1-4.8); LYMPHOCYTES % (AUTO) 17.4 % (21-51); MEAN CORPUSCULAR HEMOGLOBIN 36.6 PG (27.0-31.0); MEAN CORPUSCULAR HGB CONC 35.8 g/dL (33.0-36.5); MEAN CORPUSCULAR VOLUME 102.2 FL (78-98); MEAN PLATELET VOLUME 9.1 FL (7.4-10.4); MONOCYTES # (AUTO) 0.7 X10'3 (0-0.9); MONOCYTES % (AUTO) 11.4 % (2-12); NEUTROPHILS # (AUTO) 4.4 X10'3 (1.8-7.7); NEUTROPHILS % (AUTO) 68.4 % (42-75); PLATELET COUNT 74 X10'3 (140-440); RED BLOOD COUNT 3.46 X10'6 (4.70-6.10); RED CELL DISTRIBUTION WIDTH 14.9 % (11.5-14.5); WHITE BLOOD COUNT 6.4 X10'3 (4.5-11.0)
[2019-07-30 10:48] LABS: ALANINE AMINOTRANSFERASE 76 U/L (12-78); ALBUMIN 2.5 G/DL (3.4-5.0); ALBUMIN/GLOBULIN RATIO 0.7 (1.1-1.5); ALKALINE PHOSPHATASE 99 IU/L (46-116); ANION GAP 8 (8-16); ASPARTATE AMINO TRANSFERASE 92 U/L (10-37); BILIRUBIN,TOTAL 2.9 MG/DL (0.1-1.0); BLOOD UREA NITROGEN 12 MG/DL (7-18); BUN/CREATININE RATIO 18.5 (5.4-32.0); CALCIUM 8.1 MG/DL (8.5-10.1); CHLORIDE 106 MMOL/L (99-107); CREATININE 0.65 MG/DL (0.60-1.10); GLUCOSE 129 MG/DL (70-104); SODIUM 139 MMOL/L (135-145); TOTAL CARBON DIOXIDE 24.9 MMOL/L (24-32); TOTAL PROTEIN 6.2 G/DL (6.4-8.2); eGFR > 90 ML/MIN
--- NOTE | 2019-07-30 11:43 | NUR ---
PT WAS SLEEPING, UPON WAKING PT DENIES ANY PAIN, UPDATED VS AND THEN PT REPORTS 10/10 PAIN
[2019-07-30] MEDS ORDERED: CEPH-572 PO (12:03)
[2019-07-30 12:17] VITALS: BP 148/83
--- NOTE | 2019-07-30 12:17 | NUR ---
PT WAS SLEEPING, PT INSTRUCTED OF DISCHARGE PLAN, PT STATES HE HAS PMD, PT OFFERED FOOD AND BUS PASS BUT DECLINES, PT HAS WEATHER APPROPRIATE COTHING, PT UNDERSTANDS TO TAKE FULL COURSE ABX.
== END 2019-07-30 13:29 | disposition home or self-care (01) ==
LOC: ER 08:57
DX: L03.115 Cellulitis of right lower limb (principal); L03.116 Cellulitis of left lower limb; R60.0 Localized edema; E11.9 Type 2 diabetes mellitus without complications; Z60.2 Problems related to living alone; Z59.0 Homelessness; Z56.0 Unemployment, unspecified; Z79.899 Other long term (current) drug therapy
CPT/HCPCS: 36415; 80053; 82140; 85025; 93971; 99284

== ENCOUNTER 2019-09-11 11:35 | Inpatient (IN) | payer MEDICAID ==
[~2019-09-11] VITALS: Ht 172.7 cm; Wt 84.1 kg
[2019-09-11 14:39] LABS: BASOPHILS # (AUTO) 0.1 X10'3 (0-0.2); BASOPHILS % (AUTO) 0.4 % (0-1); EOSINOPHILS # (AUTO) 0.2 X10'3 (0-0.9); EOSINOPHILS % (AUTO) 1.5 % (0-6); HEMATOCRIT 32.6 % (42.0-52.0); HEMOGLOBIN 11.4 g/dl (14.0-17.9); LYMPHOCYTES # (AUTO) 1.7 X10'3 (1.1-4.8); LYMPHOCYTES % (AUTO) 14.4 % (21-51); MEAN CORPUSCULAR HEMOGLOBIN 36.4 PG (27.0-31.0); MEAN CORPUSCULAR VOLUME 104.1 FL (78-98); MONOCYTES # (AUTO) 1.5 X10'3 (0-0.9); MONOCYTES % (AUTO) 12.3 % (2-12); NEUTROPHILS # (AUTO) 8.7 X10'3 (1.8-7.7); NEUTROPHILS % (AUTO) 71.4 % (42-75); PLATELET COUNT 111 X10'3 (140-440); RED BLOOD COUNT 3.13 X10'6 (4.70-6.10); RED CELL DISTRIBUTION WIDTH 14.1 % (11.5-14.5); WHITE BLOOD COUNT 12.2 X10'3 (4.5-11.0)
--- NOTE | 2019-09-11 14:43 | NUR ---
US AT BEDSIDE
[2019-09-11 14:55] LABS: PARTIAL THROMBOPLASTIN TIME 36 SECONDS (22-32)
[2019-09-11 14:56] LABS: ALANINE AMINOTRANSFERASE 42 U/L (12-78); ALKALINE PHOSPHATASE 92 IU/L (46-116); ANION GAP 9 (8-16); ASPARTATE AMINO TRANSFERASE 59 U/L (10-37); BILIRUBIN,TOTAL 4.2 MG/DL (0.1-1.0); BLOOD UREA NITROGEN 16 MG/DL (7-18); BUN/CREATININE RATIO 17.4 (5.4-32.0); CALCIUM 7.6 MG/DL (8.5-10.1); CHLORIDE 102 MMOL/L (99-107); CREATININE 0.92 MG/DL (0.60-1.10); GLUCOSE 154 MG/DL (70-104); POTASSIUM 3.4 MMOL/L (3.5-5.1); SODIUM 134 MMOL/L (135-145); TOTAL CARBON DIOXIDE 22.6 MMOL/L (24-32); eGFR 84 ML/MIN
[2019-09-11 15:04] LABS: LIPASE 107 U/L (73-393)
[2019-09-11 15:07] LABS: ALBUMIN/GLOBULIN RATIO 0.5 (1.1-1.5)
[2019-09-11] MEDS ORDERED: normal saline 1000ML IV soln IVB ONE ×2 (15:10→16:00)
[2019-09-11] MEDS ORDERED: piperacillin/tazo 3.375gm/50ml 50 ML IV ONE (16:00)
[2019-09-11] MEDS ORDERED: vancomycin/NS 1 GM ADD-VANTAGE 250 ML IV ONE (16:00)
[2019-09-11] MEDS ORDERED: RIFA550T PO (16:43)
[2019-09-11] MEDS ORDERED: TRAZ-251 PO (16:43)
[2019-09-11] MEDS ORDERED: LACT10SO PO (16:43)
[2019-09-11] MEDS ORDERED: MAG355OR18 PO (16:43)
[2019-09-11] MEDS ORDERED: FURO40TA4 PO (16:43)
[2019-09-11] MEDS ORDERED: SPIR50TA5 PO (16:43)
[2019-09-11] MEDS ORDERED: MULT1TAB74 PO (16:44)
[2019-09-11] MEDS ORDERED: ONDA4TAB6 PO (16:44)
[2019-09-11] MEDS ORDERED: mag hydrox/Alum hydrox/simeth 30ml oral suspension PO PRN ×2 (16:50→16:55)
[2019-09-11] MEDS ORDERED: diphenhydrAMINE 50 mg/ml inj IV PRN (16:55)
[2019-09-11] MEDS ORDERED: morphine 2 MG/ML inj. syringe IV PRN ×2 (16:55)
[2019-09-11] MEDS ORDERED: diphenhydrAMINE 25mg capsule PO PRN (16:55)
[2019-09-11] MEDS ORDERED: magnesium 2GM in 50ml NS 50 ML IV PRN (16:55)
[2019-09-11] MEDS ORDERED: metoclopramide 5 mg/ml inj IV PRN (16:55)
[2019-09-11] MEDS ORDERED: magnesium Cl slow-release 64mg tablet PO PRN (16:55)
[2019-09-11] MEDS ORDERED: magnesium hydroxide 30ml (MOM) UD suspension PO PRN (16:55)
[2019-09-11] MEDS ORDERED: potassium CL 10mEq/100ml bag 100 ML IV PRN ×2 (16:55)
[2019-09-11] MEDS ORDERED: ondansetron/PF 4mg/2ml inj IV PRN (16:55)
[2019-09-11] MEDS ORDERED: bisacodyl 10mg suppository rectal RC PRN (16:55)
[2019-09-11] MEDS ORDERED: magnesium 4gm in 100ml NS 100 ML IV PRN (16:55)
[2019-09-11] MEDS ORDERED: acetaminophen 650mg rectal suppository RC PRN (16:55)
[2019-09-11] MEDS ORDERED: acetaminophen 325mg tablet PO PRN ×2 (16:55)
[2019-09-11] MEDS ORDERED: morphine 2 MG/ML inj. syringe IV ONE (17:05)
[2019-09-11 17:15] LABS: CLARITY,URINE CLEAR (Clear); COLOR,URINE YELLOW (Yellow); GLUCOSE, URINE NEGATIVE (Neg); KETONES,URINE NEGATIVE (Neg); LEUKOCYTE ESTERASE ,URINE NEGATIVE (Neg); NITRITES, URINE NEGATIVE (Neg); OCCULT BLOOD,URINE TRACE-INTACT (Neg); PROTEIN,URINE NEGATIVE (Neg); UROBILINOGEN,URINE >=8.0 E.U/dL (0.2-1.0)
[2019-09-11 17:27] LABS: UA COLLECTION TYPE URINAL
[2019-09-11 17:28] LABS: HYALINE CASTS 0-3 /LPF (NEGATIVE); MUCUS STRANDS FEW /LPF (Neg); SQUAMOUS EPITHELIAL CELL,UR FEW /LPF (FEW)
[2019-09-11 17:29] LABS: BACTERIA,URINE 1+ /HPF (Neg); RBC,URINE 0-2 /HPF (0-2); WBC,URINE 0-4 /HPF (0-4)
[2019-09-11 17:31] LABS: ETHANOL < 0.010 GM/DL (0.0-0.010)
[2019-09-11 17:32] LABS: URINE AMPHETAMINE SCREEN POSITIVE (Neg); URINE BARBITUATE SCREEN NEGATIVE (Neg); URINE BENZODIAZEPINES SCREEN NEGATIVE (Neg); URINE CANNABINOID SCREEN NEGATIVE (Neg); URINE COCAINE SCREEN NEGATIVE (Neg); URINE METHADONE SCREEN NEGATIVE (Neg); URINE OPIATE SCREEN POSITIVE (Neg); URINE PHENCYCLIDINE SCREEN NEGATIVE (Neg)
[2019-09-11 17:41] LABS: HEMOGLOBIN A1C 5.4 % (4.5-6.2)
[2019-09-11] MEDS: normal saline 1000ml 1,000 ML IV SCH (18:00)
[2019-09-11 19:00] VITALS: BP 123/70
--- NOTE | 2019-09-11 19:00 | NUR ---
Patient in room PCU 3013. I have received report from Kayleen RN (ER) and had the opportunity to ask questions and assume patient care. Patient arrived to PCU by alan and was able to ambulate to his bed. Ex- Ishan at bedside. Telemetry placed, vitals taken. Patient oriented to room and call light. Will continue to monitor.
[2019-09-11] MEDS: heparin, porcine 5000 units/ml vial SQ SCH (20:00)
[2019-09-11] MEDS: K and/or MAG REPLACEMENT MC SCH (20:00)
[2019-09-11] MEDS: rifaximin 550mg tablet PO SCH (20:00)
[2019-09-11] MEDS: furosemide 10 MG/1 ML 10ml inj IV SCH (21:38)
[2019-09-11] MEDS: traZODone 50mg tablet PO SCH (21:39)
[2019-09-11] MEDS: potassium Cl 20 mEq SR tablet PO PRN (21:39)
[2019-09-11] MEDS: propranolol 10mg tablet PO SCH (21:40)
[2019-09-11 23:00] VITALS: BP 124/74
[2019-09-12] MEDS: piperacillin/tazo 3.375gm/50ml 50 ML IV SCH ×4 (00:05→23:58)
[2019-09-12] MEDS: normal saline 1000ml 1,000 ML IV SCH ×4 (02:52→20:14)
[2019-09-12 03:00] VITALS: BP 104/53
[2019-09-12 06:00] VITALS: BP 110/54
--- NOTE | 2019-09-12 06:00 | NUR ---
Patient in room PCU 3013. I have received report from Tosha ROSALES and had the opportunity to ask questions and assume patient care.
[2019-09-12 06:02] LABS: BASOPHILS # (AUTO) 0.1 X10'3 (0-0.2); BASOPHILS % (AUTO) 0.8 % (0-1); EOSINOPHILS # (AUTO) 0.5 X10'3 (0-0.9); EOSINOPHILS % (AUTO) 5.6 % (0-6); HEMATOCRIT 29.2 % (42.0-52.0); HEMOGLOBIN 10.2 g/dl (14.0-17.9); LYMPHOCYTES # (AUTO) 1.5 X10'3 (1.1-4.8); LYMPHOCYTES % (AUTO) 19.2 % (21-51); MEAN CORPUSCULAR HEMOGLOBIN 36.1 PG (27.0-31.0); MEAN CORPUSCULAR HGB CONC 35.1 g/dL (33.0-36.5); MEAN CORPUSCULAR VOLUME 102.8 FL (78-98); MEAN PLATELET VOLUME 7.7 FL (7.4-10.4); MONOCYTES # (AUTO) 1.2 X10'3 (0-0.9); NEUTROPHILS # (AUTO) 4.8 X10'3 (1.8-7.7); NEUTROPHILS % (AUTO) 59.4 % (42-75); PLATELET COUNT 106 X10'3 (140-440); RED BLOOD COUNT 2.84 X10'6 (4.70-6.10); RED CELL DISTRIBUTION WIDTH 14.5 % (11.5-14.5)
--- NOTE | 2019-09-12 06:22 | NUR ---
Problems reprioritized. Patient report given, questions answered & plan of care reviewed with Annie ROSALES.
[2019-09-12 06:52] LABS: ALANINE AMINOTRANSFERASE 34 U/L (12-78); ALBUMIN 1.6 G/DL (3.4-5.0); ALBUMIN/GLOBULIN RATIO 0.4 (1.1-1.5); ALKALINE PHOSPHATASE 70 IU/L (46-116); ANION GAP 7 (8-16); ASPARTATE AMINO TRANSFERASE 43 U/L (10-37); BILIRUBIN,TOTAL 2.4 MG/DL (0.1-1.0); BLOOD UREA NITROGEN 17 MG/DL (7-18); BUN/CREATININE RATIO 21.3 (5.4-32.0); CHLORIDE 106 MMOL/L (99-107); CHOL/HDL RATIO 3.3 (0.00-4.99); CHOLESTEROL 80 MG/DL (0-200); GLUCOSE 119 MG/DL (70-104); HDL CHOLESTEROL 24 MG/DL (35-60); LDL CHOLESTEROL 22 MG/DL (50-100); MAGNESIUM 1.6 MG/DL (1.5-2.4); PHOSPHORUS 1.4 MG/DL (2.3-4.5); POTASSIUM 3.2 MMOL/L (3.5-5.1); SODIUM 137 MMOL/L (135-145); TOTAL CARBON DIOXIDE 23.9 MMOL/L (24-32); TOTAL PROTEIN 5.2 G/DL (6.4-8.2); TRIGLYCERIDES 75 MG/DL (20-135); eGFR > 90 ML/MIN
[2019-09-12 07:27] LABS: PLATELET ESTIMATE DECREASED; POIKILOCYTOSIS 1+; POLYCHROMASIA 1+; TOTAL CELLS COUNTED 100
[2019-09-12] MEDS: K and/or MAG REPLACEMENT MC SCH ×2 (08:00→20:00)
[2019-09-12] MEDS ORDERED: lactulose 20gm/30ml cup PO SCH (08:00)
[2019-09-12] MEDS: heparin, porcine 5000 units/ml vial SQ SCH ×2 (08:21→20:00)
[2019-09-12] MEDS: VANCOmycin 1250MG/NS 250ml Bag 250 ML IV SCH ×2 (08:21→19:54)
[2019-09-12] MEDS: spironolactone 50 MG tablet PO SCH (08:22)
[2019-09-12] MEDS: propranolol 10mg tablet PO SCH ×2 (08:22→20:11)
[2019-09-12] MEDS: multivitamins, therapeutics tablet PO SCH (08:22)
[2019-09-12] MEDS: rifaximin 550mg tablet PO SCH ×2 (08:22→20:12)
[2019-09-12] MEDS: furosemide 10 MG/1 ML 10ml inj IV SCH ×3 (08:34→20:10)
[2019-09-12] MEDS: potassium Cl 20 mEq SR tablet PO PRN ×2 (08:58→20:10)
[2019-09-12] MEDS ORDERED: pneumococcal 23-VAL P-sac vacc 25 mcg/0.5ml vial IMVAC ONE (10:00)
[2019-09-12 11:00] VITALS: BP 131/69
--- NOTE | 2019-09-12 14:58 | NUR ---
Paged MD regarding family request to speak with him. Per Tanna, son Ludwin just flew in and would like a few minutes with the MD. PAGER ID: [phone] MESSAGE: [id number] Kunal Velasquez. Family at bedside, requesting to speak with you. [facility] [id number]
[2019-09-12 15:00] VITALS: BP 114/56
[2019-09-12] MEDS: lactulose 20gm/30ml cup PO SCH ×5 (15:20→23:58)
--- NOTE | 2019-09-12 18:15 | NUR ---
Patient in room PCU 3013. I have received report from Annie ROSALES and had the opportunity to ask questions and assume patient care.
--- NOTE | 2019-09-12 18:46 | NUR ---
Problems reprioritized. Patient report given, questions answered & plan of care reviewed with Tosha ROSALES.
[2019-09-12 19:00] VITALS: BP 112/70
[2019-09-12] MEDS: lactobacillus rhamnosus 10,000 MMU CELLS/CAPSULE PO SCH (20:12)
[2019-09-12] MEDS: traZODone 50mg tablet PO SCH (20:12)
--- NOTE | 2019-09-12 21:00 | NUR ---
Patient is getting irritated about taking his medications. He stated "I cannot take all these medications!" He refused his lasix and lactulose. I explained the need for both medications but he still declined. Heparin was held due to low platelet count.
[2019-09-12 22:00] VITALS: BP 106/56
--- NOTE | 2019-09-13 02:53 | NUR ---
Paged Dr. Davidson PAGER ID: [phone] MESSAGE: Tosha U [phone]. Mark Velasquez 59 Dx Sepsis. Tele orders have . Can we renew? Thanks Addendum: 09/13/19 at 0305 by Tosha Mansfield RN Patient has no cardiac history and has been in SR since admission. Dr. Davidson doesn't feel telemetry orders needs to be replaced.
[2019-09-13 03:00] VITALS: BP 106/56
[2019-09-13] MEDS: lactulose 20gm/30ml cup PO SCH ×5 (04:00→20:38)
[2019-09-13] MEDS: VANCOmycin 1250MG/NS 250ml Bag 250 ML IV SCH ×2 (05:54→18:48)
[2019-09-13 06:00] VITALS: BP 108/55
--- NOTE | 2019-09-13 06:00 | NUR ---
Patient in room PCU 3013. I have received report from Tosha ROSALES and had the opportunity to ask questions and assume patient care.
--- NOTE | 2019-09-13 06:12 | NUR ---
Problems reprioritized. Patient report given, questions answered & plan of care reviewed with Annie ROSALES.
[2019-09-13 07:15] LABS: ALANINE AMINOTRANSFERASE 28 U/L (12-78); ALBUMIN 1.6 G/DL (3.4-5.0); ALBUMIN/GLOBULIN RATIO 0.4 (1.1-1.5); ALKALINE PHOSPHATASE 69 IU/L (46-116); ANION GAP 8 (8-16); ASPARTATE AMINO TRANSFERASE 35 U/L (10-37); BILIRUBIN,TOTAL 2.6 MG/DL (0.1-1.0); BLOOD UREA NITROGEN 12 MG/DL (7-18); BUN/CREATININE RATIO 15.8 (5.4-32.0); CALCIUM 6.7 MG/DL (8.5-10.1); CHLORIDE 105 MMOL/L (99-107); CREATININE 0.76 MG/DL (0.60-1.10); GLUCOSE 108 MG/DL (70-104); MAGNESIUM 1.6 MG/DL (1.5-2.4); PHOSPHORUS 1.9 MG/DL (2.3-4.5); SODIUM 137 MMOL/L (135-145); TOTAL CARBON DIOXIDE 23.8 MMOL/L (24-32); TOTAL PROTEIN 5.3 G/DL (6.4-8.2); eGFR > 90 ML/MIN
[2019-09-13] MEDS: multivitamins, therapeutics tablet PO SCH (07:32)
[2019-09-13] MEDS: rifaximin 550mg tablet PO SCH ×2 (07:32→20:37)
[2019-09-13] MEDS: potassium Cl 20 mEq SR tablet PO PRN ×2 (07:32→13:38)
[2019-09-13] MEDS: spironolactone 50 MG tablet PO SCH (07:32)
[2019-09-13] MEDS: lactobacillus rhamnosus 10,000 MMU CELLS/CAPSULE PO SCH ×2 (07:32→20:37)
[2019-09-13] MEDS: propranolol 10mg tablet PO SCH ×2 (07:32→20:00)
[2019-09-13] MEDS: furosemide 10 MG/1 ML 10ml inj IV SCH ×2 (07:33→20:00)
[2019-09-13] MEDS: heparin, porcine 5000 units/ml vial SQ SCH ×2 (07:34→20:37)
[2019-09-13] MEDS: HYDROcodone/acetaminophen 5mg/325mg tablet PO PRN ×2 (07:48→13:37)
[2019-09-13] MEDS: K and/or MAG REPLACEMENT MC SCH ×2 (08:00→20:00)
[2019-09-13 08:37] LABS: BASOPHILS # (AUTO) 0.1 X10'3 (0-0.2); BASOPHILS % (AUTO) 1.3 % (0-1); EOSINOPHILS # (AUTO) 0.4 X10'3 (0-0.9); EOSINOPHILS % (AUTO) 5.4 % (0-6); HEMATOCRIT 30.3 % (42.0-52.0); HEMOGLOBIN 10.5 g/dl (14.0-17.9); LYMPHOCYTES # (AUTO) 1.4 X10'3 (1.1-4.8); LYMPHOCYTES % (AUTO) 17.6 % (21-51); MEAN CORPUSCULAR HEMOGLOBIN 35.9 PG (27.0-31.0); MEAN CORPUSCULAR HGB CONC 34.6 g/dL (33.0-36.5); MEAN CORPUSCULAR VOLUME 103.6 FL (78-98); MONOCYTES # (AUTO) 1.3 X10'3 (0-0.9); MONOCYTES % (AUTO) 16.1 % (2-12); NEUTROPHILS # (AUTO) 4.7 X10'3 (1.8-7.7); NEUTROPHILS % (AUTO) 59.6 % (42-75); PLATELET COUNT 101 X10'3 (140-440); RED BLOOD COUNT 2.92 X10'6 (4.70-6.10); RED CELL DISTRIBUTION WIDTH 14.6 % (11.5-14.5); WHITE BLOOD COUNT 7.8 X10'3 (4.5-11.0)
[2019-09-13] MEDS: piperacillin/tazo 3.375gm/50ml 50 ML IV SCH ×2 (09:49→15:59)
[2019-09-13 11:00] VITALS: BP 97/57
--- NOTE | 2019-09-13 11:32 | NUR ---
Discussed code status with patient. Nurse on duty, attending MD, and son present during meeting. MD discussed patient's prognosis being very poor and that medical management would be the best route to take now. Patient was counseled on compliance with treatment. MD reviewed different advanced directive options with patient and son Ludwin who is to be the patient's power of county attorney. Case management is assisting with that process. After the MD's full review of patient's current medical standing, what the patient's wishes are in the event of respiratory or cardiac arrest, and some counseling between the patient and his son, the patient has decided to be DNR at this point in time and has made it clear to all who were present during this discussion.
[2019-09-13] MEDS: mineral oil/petrolatum, white cream 113gm jar TP SCH ×2 (12:56→21:32)
[2019-09-13 15:00] VITALS: BP 103/60
[2019-09-13] MEDS: HYDROcodone/acetaminophen 10/325mg tab PO PRN ×2 (16:57→21:32)
[2019-09-13] MEDS ORDERED: VANCOMYCIN LEVEL IV ONE (17:30)
--- NOTE | 2019-09-13 18:50 | NUR ---
Problems reprioritized. Patient report given, questions answered & plan of care reviewed with Jenny ROSALES.
[2019-09-13 19:00] VITALS: BP 118/72
[2019-09-13] MEDS: traZODone 50mg tablet PO SCH (20:37)
[2019-09-13 23:00] VITALS: BP 99/49
[2019-09-14] MEDS: lactulose 20gm/30ml cup PO SCH ×7 (00:51→20:34)
[2019-09-14] MEDS: piperacillin/tazo 3.375gm/50ml 50 ML IV SCH ×3 (00:52→15:57)
[2019-09-14 03:00] VITALS: BP 136/63
[2019-09-14] MEDS: VANCOmycin 1250MG/NS 250ml Bag 250 ML IV SCH (04:56)
[2019-09-14 06:00] VITALS: BP 126/65
--- NOTE | 2019-09-14 06:28 | NUR ---
Patient in room PCU 3012. I have received report from sangeeta ROSALES, had the opportunity to ask questions and assume patient care.
[2019-09-14 07:01] LABS: BASOPHILS # (AUTO) 0.1 X10'3 (0-0.2); BASOPHILS % (AUTO) 1.2 % (0-1); EOSINOPHILS # (AUTO) 0.6 X10'3 (0-0.9); EOSINOPHILS % (AUTO) 10.9 % (0-6); HEMOGLOBIN 10.8 g/dl (14.0-17.9); LYMPHOCYTES # (AUTO) 1.4 X10'3 (1.1-4.8); LYMPHOCYTES % (AUTO) 23.3 % (21-51); MEAN CORPUSCULAR HEMOGLOBIN 36.1 PG (27.0-31.0); MEAN CORPUSCULAR VOLUME 103.1 FL (78-98); MEAN PLATELET VOLUME 8.2 FL (7.4-10.4); MONOCYTES % (AUTO) 16.6 % (2-12); NEUTROPHILS # (AUTO) 2.8 X10'3 (1.8-7.7); PLATELET COUNT 102 X10'3 (140-440); RED BLOOD COUNT 3.01 X10'6 (4.70-6.10); RED CELL DISTRIBUTION WIDTH 14.6 % (11.5-14.5); WHITE BLOOD COUNT 5.9 X10'3 (4.5-11.0)
[2019-09-14 07:19] LABS: ALANINE AMINOTRANSFERASE 28 U/L (12-78); ALBUMIN 1.6 G/DL (3.4-5.0); ALBUMIN/GLOBULIN RATIO 0.4 (1.1-1.5); ALKALINE PHOSPHATASE 75 IU/L (46-116); ANION GAP 8 (8-16); ASPARTATE AMINO TRANSFERASE 33 U/L (10-37); BILIRUBIN,TOTAL 1.5 MG/DL (0.1-1.0); BLOOD UREA NITROGEN 11 MG/DL (7-18); BUN/CREATININE RATIO 13.4 (5.4-32.0); CALCIUM 6.9 MG/DL (8.5-10.1); CHLORIDE 109 MMOL/L (99-107); CREATININE 0.82 MG/DL (0.60-1.10); GLUCOSE 141 MG/DL (70-104); MAGNESIUM 1.7 MG/DL (1.5-2.4); PHOSPHORUS 2.2 MG/DL (2.3-4.5); POTASSIUM 3.2 MMOL/L (3.5-5.1); SODIUM 141 MMOL/L (135-145); TOTAL CARBON DIOXIDE 24.5 MMOL/L (24-32); TOTAL PROTEIN 5.4 G/DL (6.4-8.2); eGFR > 90 ML/MIN
[2019-09-14 07:26] LABS: PLATELET ESTIMATE DECREASED
[2019-09-14] MEDS: furosemide 10 MG/1 ML 10ml inj IV SCH ×2 (07:48→20:33)
[2019-09-14] MEDS: lactobacillus rhamnosus 10,000 MMU CELLS/CAPSULE PO SCH ×2 (07:49→20:30)
[2019-09-14] MEDS: propranolol 10mg tablet PO SCH ×2 (07:49→20:30)
[2019-09-14] MEDS: spironolactone 50 MG tablet PO SCH (07:49)
[2019-09-14] MEDS: multivitamins, therapeutics tablet PO SCH (07:49)
[2019-09-14] MEDS: rifaximin 550mg tablet PO SCH ×2 (07:59→20:31)
[2019-09-14] MEDS: HYDROcodone/acetaminophen 10/325mg tab PO PRN ×2 (08:00→21:08)
[2019-09-14] MEDS: mineral oil/petrolatum, white cream 113gm jar TP SCH ×3 (08:02→21:02)
[2019-09-14] MEDS: heparin, porcine 5000 units/ml vial SQ SCH ×2 (08:02→20:32)
[2019-09-14] MEDS: K and/or MAG REPLACEMENT MC SCH ×2 (08:03→20:00)
--- NOTE | 2019-09-14 09:30 | NUR ---
Potassium replacement started for K+ of 3.1
[2019-09-14] MEDS: potassium Cl 20 mEq SR tablet PO PRN ×2 (09:36→15:57)
[2019-09-14 11:00] VITALS: BP 102/59
[2019-09-14 15:00] VITALS: BP 116/72
[2019-09-14 19:00] VITALS: BP 119/67
[2019-09-14] MEDS: traZODone 50mg tablet PO SCH (20:30)
[2019-09-14 23:00] VITALS: BP 128/58
[2019-09-15] MEDS: piperacillin/tazo 3.375gm/50ml 50 ML IV SCH ×2 (00:36→10:31)
[2019-09-15 03:00] VITALS: BP 124/70
[2019-09-15] MEDS: lactulose 20gm/30ml cup PO SCH ×4 (04:00→12:00)
[2019-09-15 05:25] LABS: BASOPHILS # (AUTO) 0.1 X10'3 (0-0.2); BASOPHILS % (AUTO) 1.4 % (0-1); EOSINOPHILS # (AUTO) 0.8 X10'3 (0-0.9); EOSINOPHILS % (AUTO) 11.8 % (0-6); HEMOGLOBIN 12.6 g/dl (14.0-17.9); LYMPHOCYTES # (AUTO) 1.6 X10'3 (1.1-4.8); LYMPHOCYTES % (AUTO) 24.5 % (21-51); MEAN CORPUSCULAR HEMOGLOBIN 35.9 PG (27.0-31.0); MEAN CORPUSCULAR VOLUME 102.5 FL (78-98); MEAN PLATELET VOLUME 8.2 FL (7.4-10.4); MONOCYTES # (AUTO) 0.9 X10'3 (0-0.9); MONOCYTES % (AUTO) 14.5 % (2-12); NEUTROPHILS # (AUTO) 3.1 X10'3 (1.8-7.7); NEUTROPHILS % (AUTO) 47.8 % (42-75); PLATELET COUNT 123 X10'3 (140-440); RED BLOOD COUNT 3.51 X10'6 (4.70-6.10); RED CELL DISTRIBUTION WIDTH 14.6 % (11.5-14.5); WHITE BLOOD COUNT 6.5 X10'3 (4.5-11.0)
[2019-09-15 05:50] LABS: ALANINE AMINOTRANSFERASE 31 U/L (12-78); ALBUMIN 1.9 G/DL (3.4-5.0); ALBUMIN/GLOBULIN RATIO 0.4 (1.1-1.5); ALKALINE PHOSPHATASE 89 IU/L (46-116); ANION GAP 7 (8-16); ASPARTATE AMINO TRANSFERASE 40 U/L (10-37); BILIRUBIN,TOTAL 1.5 MG/DL (0.1-1.0); BLOOD UREA NITROGEN 9 MG/DL (7-18); BUN/CREATININE RATIO 11.4 (5.4-32.0); CALCIUM 7.4 MG/DL (8.5-10.1); CHLORIDE 107 MMOL/L (99-107); CREATININE 0.79 MG/DL (0.60-1.10); GLUCOSE 120 MG/DL (70-104); MAGNESIUM 1.5 MG/DL (1.5-2.4); PHOSPHORUS 2.8 MG/DL (2.3-4.5); POTASSIUM 3.2 MMOL/L (3.5-5.1); SODIUM 141 MMOL/L (135-145); TOTAL CARBON DIOXIDE 27.1 MMOL/L (24-32); TOTAL PROTEIN 6.5 G/DL (6.4-8.2); eGFR > 90 ML/MIN
--- NOTE | 2019-09-15 06:00 | NUR ---
Patient in room PCU 3013. I have received report from Jenny Vance had the opportunity to ask questions and assume patient care. Patient awake and oriented a thtis time, unlabored respirations, offers no complaints, will continue to monitor.
[2019-09-15 07:00] VITALS: BP 125/63
[2019-09-15] MEDS: rifaximin 550mg tablet PO SCH (07:56)
[2019-09-15] MEDS: spironolactone 50 MG tablet PO SCH (07:56)
[2019-09-15] MEDS: furosemide 10 MG/1 ML 10ml inj IV SCH (07:56)
[2019-09-15] MEDS: heparin, porcine 5000 units/ml vial SQ SCH (07:56)
[2019-09-15] MEDS: lactobacillus rhamnosus 10,000 MMU CELLS/CAPSULE PO SCH (07:56)
[2019-09-15] MEDS: propranolol 10mg tablet PO SCH (07:56)
[2019-09-15] MEDS: multivitamins, therapeutics tablet PO SCH (07:56)
[2019-09-15] MEDS: mineral oil/petrolatum, white cream 113gm jar TP SCH ×2 (07:57→13:06)
[2019-09-15] MEDS: K and/or MAG REPLACEMENT MC SCH (07:57)
[2019-09-15] MEDS ORDERED: potassium Cl 20 mEq SR tablet PO PRN ×2 (08:15)
[2019-09-15] MEDS ORDERED: magnesium Cl slow-release 64mg tablet PO PRN (08:15)
[2019-09-15] MEDS ORDERED: magnesium 4gm in 100ml NS 100 ML IV PRN (08:15)
[2019-09-15] MEDS ORDERED: potassium CL 10mEq/100ml bag 100 ML IV PRN (08:15)
[2019-09-15] MEDS ORDERED: LACT1CAP26 PO (09:41)
[2019-09-15] MEDS ORDERED: FOLI0.4T2 PO (09:41)
[2019-09-15] MEDS ORDERED: PROP10TA10 PO (09:41)
[2019-09-15] MEDS ORDERED: LINE600T12 PO (09:41)
[2019-09-15] MEDS ORDERED: LACT10SO32 PO (09:41)
[2019-09-15] MEDS ORDERED: RIFA550T PO (09:41)
[2019-09-15] MEDS ORDERED: THIA100T66 PO (09:41)
[2019-09-15] MEDS ORDERED: WOOL454C TP (09:41)
[2019-09-15] MEDS ORDERED: POTA20TA19 PO (09:45)
[2019-09-15] MEDS ORDERED: potassium Cl 20 mEq SR tablet PO STA (09:52)
[2019-09-15 11:00] VITALS: BP 130/60
[2019-09-15] MEDS: HYDROcodone/acetaminophen 10/325mg tab PO PRN (12:33)
[2019-09-15 15:00] VITALS: BP 93/53
--- NOTE | 2019-09-15 17:36 | NUR ---
Patient discharged to [facility] in [facility]. PIV removed and all belongings sent with patient. Patient was picked up by [facility] medical cab/transport. Wheeled down by staff. Discharge packet and instructions were reviewed before signing, medications were faxed to pharmacy. Patient was ambulatory at time of discharge and alert and oriented.
[2019-09-16] MEDS ORDERED: VANCOMYCIN LEVEL IV ONE (05:30)
== END 2019-09-15 17:35 | disposition home or self-care (01) | DRG 720 ==
LOC: ER 11:36 → ED HOLD 16:56 → PCU 3S 19:39 → UNDODISIN 09-15 15:25
PROVIDERS: ADMIT Family Medicine; ATTEND Family Medicine
DX: A41.9 Sepsis, unspecified organism (principal); D68.4 Acquired coagulation factor deficiency; K76.6 Portal hypertension; E87.1 Hypo-osmolality and hyponatremia; D64.9 Anemia, unspecified; E11.9 Type 2 diabetes mellitus without complications; K70.30 Alcoholic cirrhosis of liver without ascites; E87.6 Hypokalemia; F10.20 Alcohol dependence, uncomplicated; F15.10 Other stimulant abuse, uncomplicated; F17.200 Nicotine dependence, unspecified, uncomplicated; F32.9 Major depressive disorder, single episode, unspecified; I89.0 Lymphedema, not elsewhere classified; Z60.2 Problems related to living alone; K72.90 Hepatic failure, unspecified without coma; L03.116 Cellulitis of left lower limb; L03.115 Cellulitis of right lower limb; Z66 Do not resuscitate; Z79.899 Other long term (current) drug therapy; Z82.5 Family history of asthma and other chronic lower respiratory diseases; Z91.14 Patient's other noncompliance with medication regimen; Z91.19 Patient's noncompliance with other medical treatment and regimen; Z59.0 Homelessness; Z28.21 Immunization not carried out because of patient refusal; Z71.6 Tobacco abuse counseling; Z71.51 Drug abuse counseling and surveillance of drug abuser
CPT/HCPCS: 36415; 71046; 80053; 80061; 80202; 80305; 80320; 81001; 82140; 82948; 83036; 83605; 83690; 83735; 83880; 84100; 84145; 85025; 85610; 85730; 87040; 87081; 90732; 93971; 96365; 97116; 97161; 97530; 99285; G0378; J1644; J1940; J2270; J2543; J3370; J7030

== ENCOUNTER 2019-10-16 16:31 | Emergency (ER) | payer MEDICAID ==
[~2019-10-16] VITALS: Ht 172.7 cm; Wt 81.8 kg
[~2019-10-16 16:31] MED LIST changes: -CEPH500C5 PO; -CLOB15CR4 TOP; +FOLI0.4T2 PO; -INSU100C10 SQ; +LACT10SO32 PO; +LACT1CAP26 PO; +LINE600T12 PO; +MAG355OR18 PO; +MULT1TAB74 PO; +ONDA4TAB6 PO; +POTA20TA19 PO; +PROP10TA10 PO; +RIFA550T PO; +SPIR50TA5 PO; +THIA100T66 PO; +TRAZ-251 PO; +WOOL454C TP
[2019-10-16 16:33] VITALS: BP 146/82
[2019-10-16] MEDS ORDERED: piperacillin/tazo 3.375gm/50ml 50 ML IV ONE (18:45)
[2019-10-16] MEDS ORDERED: vancomycin/NS 1 GM ADD-VANTAGE 250 ML IV ONE (18:45)
[2019-10-16] MEDS ORDERED: normal saline 1000ML IV soln IV ONE (18:45)
[2019-10-16 19:15] LABS: BASOPHILS # (AUTO) 0.1 X10'3 (0-0.2); BASOPHILS % (AUTO) 1.2 % (0-1); EOSINOPHILS # (AUTO) 0.4 X10'3 (0-0.9); EOSINOPHILS % (AUTO) 6.9 % (0-6); HEMATOCRIT 33.1 % (42.0-52.0); HEMOGLOBIN 11.8 g/dl (14.0-17.9); LYMPHOCYTES # (AUTO) 1.9 X10'3 (1.1-4.8); MEAN CORPUSCULAR HEMOGLOBIN 35.4 PG (27.0-31.0); MEAN CORPUSCULAR HGB CONC 35.6 g/dL (33.0-36.5); MEAN CORPUSCULAR VOLUME 99.5 FL (78-98); MEAN PLATELET VOLUME 8.6 FL (7.4-10.4); MONOCYTES # (AUTO) 0.7 X10'3 (0-0.9); MONOCYTES % (AUTO) 12.4 % (2-12); NEUTROPHILS # (AUTO) 2.5 X10'3 (1.8-7.7); NEUTROPHILS % (AUTO) 44.5 % (42-75); PLATELET COUNT 86 X10'3 (140-440); RED BLOOD COUNT 3.32 X10'6 (4.70-6.10); RED CELL DISTRIBUTION WIDTH 14.1 % (11.5-14.5); WHITE BLOOD COUNT 5.6 X10'3 (4.5-11.0)
[2019-10-16 19:26] LABS: PARTIAL THROMBOPLASTIN TIME 32 SECONDS (22-32)
[2019-10-16 19:30] LABS: ALANINE AMINOTRANSFERASE 73 U/L (12-78); ALBUMIN/GLOBULIN RATIO 0.5 (1.1-1.5); ALKALINE PHOSPHATASE 127 IU/L (46-116); ANION GAP 10 (8-16); ASPARTATE AMINO TRANSFERASE 100 U/L (10-37); BILIRUBIN,TOTAL 1.4 MG/DL (0.1-1.0); BLOOD UREA NITROGEN 5 MG/DL (7-18); BUN/CREATININE RATIO 7.1 (5.4-32.0); CHLORIDE 111 MMOL/L (99-107); GLUCOSE 148 MG/DL (70-104); MAGNESIUM 1.7 MG/DL (1.5-2.4); POTASSIUM 3.1 MMOL/L (3.5-5.1); SODIUM 142 MMOL/L (135-145); TOTAL CARBON DIOXIDE 21.1 MMOL/L (24-32); TOTAL PROTEIN 5.9 G/DL (6.4-8.2); eGFR > 90 ML/MIN
[2019-10-16] MEDS ORDERED: thiamine 100mg tablet PO ONE (19:35)
[2019-10-16] MEDS ORDERED: potassium Cl 20 mEq SR tablet PO ONE (19:35)
[2019-10-16] MEDS ORDERED: magnesium 2GM in 50ml NS 50 ML IV ONE (19:35)
[2019-10-16] MEDS ORDERED: CEPH500C5 PO (20:19)
[2019-10-16] MEDS ORDERED: DOXY-1 PO (20:19)
[2019-10-16] MEDS ORDERED: clindamycin phosphate 150mg/ml inj. IM ONE (20:20)
[2019-10-16] MEDS ORDERED: furosemide 20MG tablet PO ONE (20:25)
== END 2019-10-16 21:10 | disposition home or self-care (01) ==
LOC: ER 16:32
DX: L03.116 Cellulitis of left lower limb (principal); L03.115 Cellulitis of right lower limb; E11.9 Type 2 diabetes mellitus without complications; Z60.2 Problems related to living alone; Z59.0 Homelessness; Z56.0 Unemployment, unspecified; Z79.2 Long term (current) use of antibiotics; Z79.899 Other long term (current) drug therapy
CPT/HCPCS: 36415; 71045; 80053; 83605; 83735; 84145; 85025; 85610; 85730; 87040; 93005; 96372; 99285; J3490

== ENCOUNTER 2019-10-31 16:47 | Emergency (ER) | payer MEDICAID ==
[~2019-10-31] VITALS: Ht 172.7 cm; Wt 85.4 kg
[~2019-10-31 16:47] MED LIST changes: -FOLI0.4T2 PO; -LINE600T12 PO; -POTA20TA19 PO
[2019-10-31 17:18] VITALS: BP 123/50
== END 2019-10-31 19:01 | disposition home or self-care (01) ==
LOC: ER 16:58
DX: R60.0 Localized edema (principal); E11.9 Type 2 diabetes mellitus without complications; Z59.0 Homelessness; Z56.0 Unemployment, unspecified; Z60.2 Problems related to living alone; Z79.899 Other long term (current) drug therapy
CPT/HCPCS: 99284

== ENCOUNTER 2020-02-12 09:45 | Inpatient (IN) | payer MEDICAID ==
[~2020-02-12] VITALS: Ht 172.7 cm; Wt 78.0 kg
[~2020-02-12 09:45] MED LIST changes: +MULT-620 PO; -MULT1TAB74 PO
[2020-02-12] MEDS ORDERED: magnesium 2GM in 50ml NS 50 ML IV ONE (09:50)
[2020-02-12] MEDS ORDERED: normal saline 1000ML IV soln IV ONE (09:50)
[2020-02-12] MEDS ORDERED: acetaminophen 120MG suppository, rectal RC ONE (09:55)
--- NOTE | 2020-02-12 10:21 | NUR ---
tylenol supp not scanning,med verified by Akiko ROSALES.
--- NOTE | 2020-02-12 10:46 | NUR ---
ATTEMPTING TO START IV WITHOUT SUCCESS AFTER SEVERAL ATTEMPTS. ER NURSE ATTEMPTING IV START WITH US GUIDED DEVICE. PATIENT IS HOT AND DRY TO TOUCH. MINIMALLY VERBAL.
--- NOTE | 2020-02-12 11:00 | NUR ---
PIV started to left upper arm.
[2020-02-12 11:03] LABS: BASOPHILS % (AUTO) 0 % (0-1); EOSINOPHILS % (AUTO) 0.1 % (0-6); LYMPHOCYTES # (AUTO) 0.6 X10'3 (1.1-4.8); LYMPHOCYTES % (AUTO) 3.6 % (21-51); MEAN CORPUSCULAR HEMOGLOBIN 34.8 PG (27.0-31.0); MEAN CORPUSCULAR HGB CONC 34.3 g/dL (33.0-36.5); MEAN CORPUSCULAR VOLUME 101.3 FL (78-98); MEAN PLATELET VOLUME 8.7 FL (7.4-10.4); MONOCYTES # (AUTO) 0.9 X10'3 (0-0.9); MONOCYTES % (AUTO) 5.7 % (2-12); NEUTROPHILS # (AUTO) 14.8 X10'3 (1.8-7.7); NEUTROPHILS % (AUTO) 90.6 % (42-75); PLATELET COUNT 92 X10'3 (140-440); RED BLOOD COUNT 3.75 X10'6 (4.70-6.10); RED CELL DISTRIBUTION WIDTH 14.8 % (11.5-14.5); WHITE BLOOD COUNT 16.3 X10'3 (4.5-11.0)
[2020-02-12] MEDS ORDERED: LIDOcaine 2% 10ml TOPICAL JELLY (Urojet) MM ONE (11:25)
[2020-02-12] MEDS ORDERED: CefTRIAXone 2gm/D5W 50ml 50 ML IV ONE (11:25)
[2020-02-12 11:27] LABS: ALANINE AMINOTRANSFERASE 61 U/L (12-78); ALBUMIN 2.1 G/DL (3.4-5.0); ALBUMIN/GLOBULIN RATIO 0.5 (1.1-1.5); ALKALINE PHOSPHATASE 105 IU/L (46-116); ANION GAP 9 (8-16); ASPARTATE AMINO TRANSFERASE 86 U/L (10-37); BILIRUBIN,TOTAL 2.4 MG/DL (0.1-1.0); BLOOD UREA NITROGEN 29 MG/DL (7-18); BUN/CREATININE RATIO 20.9 (5.4-32.0); CALCIUM 7.9 MG/DL (8.5-10.1); CHLORIDE 103 MMOL/L (99-107); CREATINE KINASE 415 U/L (39-308); CREATININE 1.39 MG/DL (0.60-1.10); GLUCOSE 311 MG/DL (70-104); SODIUM 134 MMOL/L (135-145); TOTAL CARBON DIOXIDE 21.7 MMOL/L (24-32); TOTAL PROTEIN 6.3 G/DL (6.4-8.2); TROPONIN I < 0.04 NG/ML (0.0-0.05); eGFR 52 ML/MIN
[2020-02-12 11:28] LABS: LARGE PLATELETS FEW; PLATELET ESTIMATE DECREASED; TOTAL CELLS COUNTED 100
[2020-02-12 11:34] LABS: ETHANOL < 0.010 GM/DL (0.0-0.010)
[2020-02-12 12:14] LABS: CLARITY,URINE CLEAR (Clear); COLOR,URINE YELLOW (Yellow); GLUCOSE, URINE 500 mg/dl (Neg); KETONES,URINE NEGATIVE (Neg); LEUKOCYTE ESTERASE ,URINE NEGATIVE (Neg); NITRITES, URINE NEGATIVE (Neg); OCCULT BLOOD,URINE MODERATE (Neg); PH,URINE 5.5 (4.8-8.0); PROTEIN,URINE NEGATIVE (Neg); UROBILINOGEN,URINE 0.2 E.U/dL (0.2-1.0)
[2020-02-12 12:18] LABS: URINE AMPHETAMINE SCREEN POSITIVE (Neg); URINE BARBITUATE SCREEN NEGATIVE (Neg); URINE BENZODIAZEPINES SCREEN NEGATIVE (Neg); URINE CANNABINOID SCREEN NEGATIVE (Neg); URINE COCAINE SCREEN NEGATIVE (Neg); URINE METHADONE SCREEN NEGATIVE (Neg); URINE OPIATE SCREEN NEGATIVE (Neg); URINE PHENCYCLIDINE SCREEN NEGATIVE (Neg)
[2020-02-12 12:40] LABS: UA COLLECTION TYPE STRAIGHT CATH
[2020-02-12 12:44] LABS: MUCUS STRANDS FEW /LPF (Neg); SQUAMOUS EPITHELIAL CELL,UR FEW /LPF (FEW)
[2020-02-12 12:49] LABS: BACTERIA,URINE FEW /HPF (Neg); TRANSITIONAL EPI CELLS,URINE FEW /HPF
[2020-02-12 12:50] LABS: WBC,URINE 0-4 /HPF (0-4)
[2020-02-12] MEDS ORDERED: RIFA550T PO (12:50)
[2020-02-12] MEDS ORDERED: LACT10SO PO (12:50)
[2020-02-12] MEDS ORDERED: NADO20TA PO (12:50)
[2020-02-12] MEDS ORDERED: HYDROcodone/acetaminophen 10/325mg tab PO PRN (13:15)
[2020-02-12] MEDS ORDERED: dextrose 50%-water 50ml dispensing syringe IV PRN ×2 (13:15)
[2020-02-12] MEDS ORDERED: thiamine inj. 100 MG in normal saline 100ml IV soln 100 ML IV ONE (13:15)
[2020-02-12] MEDS ORDERED: magnesium 2GM in 50ml NS 50 ML IV PRN (13:15)
[2020-02-12] MEDS ORDERED: acetaminophen 325mg tablet PO PRN ×2 (13:15)
[2020-02-12] MEDS ORDERED: dextrose ORAL solution 15 GM/59 ML bottle PO PRN ×2 (13:15)
[2020-02-12] MEDS ORDERED: MESSAGE TO PHARMACY PO ONE (13:15)
[2020-02-12] MEDS ORDERED: magnesium Cl slow-release 64mg tablet PO PRN (13:15)
[2020-02-12] MEDS ORDERED: HYDROcodone/acetaminophen 5mg/325mg tablet PO PRN (13:15)
[2020-02-12] MEDS ORDERED: magnesium hydroxide 30ml (MOM) UD suspension PO PRN (13:15)
[2020-02-12] MEDS ORDERED: glucagon, human recombinant 1mg kit SUBCUT PRN (13:15)
[2020-02-12] MEDS ORDERED: potassium Cl 20 mEq SR tablet PO PRN ×2 (13:15)
[2020-02-12] MEDS ORDERED: mag hydrox/Alum hydrox/simeth 30ml oral suspension PO PRN (13:15)
[2020-02-12] MEDS ORDERED: magnesium 4gm in 100ml NS 100 ML IV PRN (13:15)
[2020-02-12] MEDS ORDERED: folic acid inj. 2 MG, thiamine inj. 100 MG, MVI, adult No.4 with vit. K 10 ML in dextro... IV SCH ×4 (13:15)
[2020-02-12] MEDS ORDERED: ondansetron/PF 4mg/2ml inj IV PRN (13:15)
[2020-02-12] MEDS ORDERED: potassium CL 10mEq/100ml bag 100 ML IV PRN ×2 (13:15)
[2020-02-12 13:58] LABS: HEMOGLOBIN A1C 7.4 % (4.5-6.2)
--- NOTE | 2020-02-12 14:16 | NUR ---
RCVD CALL FROM LAB, PT IS COVID NEG
[2020-02-12] MEDS: sodium chloride 0.45% 1,000 ML IV SCH ×2 (14:28→23:33)
--- NOTE | 2020-02-12 17:40 | NUR ---
Patient in room ED 13. I have received report from Akiko in the ED and had the opportunity to ask questions and assume patient care.
--- NOTE | 2020-02-12 18:05 | NUR ---
Pt arrived on the floor, tucked in
--- NOTE | 2020-02-12 18:37 | NUR ---
Problems reprioritized. Patient report given, questions answered & plan of care reviewed with Donna.
[2020-02-12] MEDS: K and/or MAG REPLACEMENT MC SCH (20:00)
--- NOTE | 2020-02-12 21:00 | NUR ---
notified that Lab was unable to draw patient. Labs reordered for AM. She stated to let AM nurse know to notify AM Hospitalist.
[2020-02-12] MEDS: traZODone 50mg tablet PO SCH (21:08)
[2020-02-12] MEDS: lactulose 20gm/30ml cup PO SCH (21:08)
[2020-02-12] MEDS: heparin, porcine 5000 units/ml vial SQ SCH (21:10)
[2020-02-12] MEDS: furosemide 40mg tablet PO SCH (21:10)
[2020-02-12] MEDS: metoprolol tartrate 25mg tablet PO SCH (21:10)
[2020-02-12] MEDS: rifaximin 550mg tablet PO SCH (21:10)
[2020-02-12] MEDS: docusate sod 100mg capsule PO SCH (21:10)
[2020-02-12] MEDS: insulin glargine (Lantus) pen - multi-dose SQ SCH (21:36)
[2020-02-12 22:00] VITALS: BP 115/72
--- NOTE | 2020-02-13 06:28 | NUR ---
Problems reprioritized. Patient report given, questions answered & plan of care reviewed with BOBBY Norris.
[2020-02-13 06:30] VITALS: BP 93/54
[2020-02-13 07:47] LABS: BASOPHILS # (AUTO) 0.1 X10'3 (0-0.2); BASOPHILS % (AUTO) 0.9 % (0-1); HEMOGLOBIN 11.9 g/dl (14.0-17.9)
[2020-02-13 07:50] LABS: EOSINOPHILS # (AUTO) 0.2 X10'3 (0-0.9); EOSINOPHILS % (AUTO) 2.1 % (0-6); HEMATOCRIT 34.1 % (42.0-52.0); LYMPHOCYTES # (AUTO) 1.8 X10'3 (1.1-4.8); LYMPHOCYTES % (AUTO) 15.4 % (21-51); MEAN CORPUSCULAR HEMOGLOBIN 35.4 PG (27.0-31.0); MEAN CORPUSCULAR HGB CONC 34.8 g/dL (33.0-36.5); MEAN CORPUSCULAR VOLUME 101.8 FL (78-98); MEAN PLATELET VOLUME 8.5 FL (7.4-10.4); MONOCYTES # (AUTO) 1.4 X10'3 (0-0.9); MONOCYTES % (AUTO) 12.2 % (2-12); NEUTROPHILS # (AUTO) 8.2 X10'3 (1.8-7.7); NEUTROPHILS % (AUTO) 69.4 % (42-75); PLATELET COUNT 80 X10'3 (140-440); RED BLOOD COUNT 3.35 X10'6 (4.70-6.10); RED CELL DISTRIBUTION WIDTH 14.8 % (11.5-14.5); WHITE BLOOD COUNT 11.7 X10'3 (4.5-11.0)
[2020-02-13] MEDS: multivitamins, therapeutics tablet PO SCH (07:53)
[2020-02-13] MEDS: lactulose 20gm/30ml cup PO SCH ×2 (07:53→19:55)
[2020-02-13] MEDS: thiamine 100mg tablet PO SCH (07:53)
[2020-02-13] MEDS: folic acid 1mg tablet PO SCH (07:53)
[2020-02-13] MEDS: rifaximin 550mg tablet PO SCH ×2 (07:53→19:55)
[2020-02-13] MEDS: heparin, porcine 5000 units/ml vial SQ SCH ×2 (08:00→20:00)
[2020-02-13] MEDS ORDERED: non-formulary drug (Multivitamins 1 TAB) PO SCH (08:00)
[2020-02-13] MEDS: metoprolol tartrate 25mg tablet PO SCH ×2 (08:00→19:55)
[2020-02-13] MEDS: docusate sod 100mg capsule PO SCH ×2 (08:00→19:55)
[2020-02-13] MEDS: K and/or MAG REPLACEMENT MC SCH ×2 (08:00→19:14)
[2020-02-13] MEDS: spironolactone 50 MG tablet PO SCH (08:00)
[2020-02-13 08:02] LABS: ALANINE AMINOTRANSFERASE 44 U/L (12-78); ALBUMIN 1.8 G/DL (3.4-5.0); ALBUMIN/GLOBULIN RATIO 0.5 (1.1-1.5); ALKALINE PHOSPHATASE 76 IU/L (46-116); AMYLASE 41 U/L (25-115); ANION GAP 7 (8-16); ASPARTATE AMINO TRANSFERASE 58 U/L (10-37); BILIRUBIN,TOTAL 2.1 MG/DL (0.1-1.0); BLOOD UREA NITROGEN 17 MG/DL (7-18); BUN/CREATININE RATIO 22.1 (5.4-32.0); CALCIUM 7.5 MG/DL (8.5-10.1); CHLORIDE 106 MMOL/L (99-107); CREATININE 0.77 MG/DL (0.60-1.10); GLUCOSE 127 MG/DL (70-104); LIPASE 175 U/L (73-393); MAGNESIUM 2.2 MG/DL (1.5-2.4); PHOSPHORUS 1.9 MG/DL (2.3-4.5); POTASSIUM 3.9 MMOL/L (3.5-5.1); SODIUM 136 MMOL/L (135-145); TOTAL CARBON DIOXIDE 22.9 MMOL/L (24-32); TOTAL PROTEIN 5.5 G/DL (6.4-8.2); eGFR > 90 ML/MIN
[2020-02-13] MEDS: sodium chloride 0.45% 1,000 ML IV SCH ×2 (09:11→19:14)
[2020-02-13 09:58] LABS: TOTAL CELLS COUNTED 100
[2020-02-13 09:59] LABS: PLATELET ESTIMATE DECREASED
[2020-02-13 10:16] LABS: SMUDGE CELLS 1+
[2020-02-13 11:00] VITALS: BP 105/59
[2020-02-13] MEDS ORDERED: sodium phosphate inj. 30 MMOL in dextrose 5%-water 250 ML IV ONE (11:00)
--- NOTE | 2020-02-13 12:00 | NUR ---
DM consult: Pt with A1c 7.4%, up from 5.4% in August of this year per records. Per PMH pt is a poor historian. Pt admit with ALOC, currently documented as A/O x 4 in physical assessment however per SW note today pt presents with confusion and agitation. DM education deferred at this time. Pt currently receiving routine Thiamine, Folic acid, and MVI for EtOH hx. Documented 100% PO intake at breakfast this morning on CHO controlled diet meeting nutrient needs. Will continue to follow. Addendum: 02/13/20 at [address] Amended: Links added.
[2020-02-13] MEDS: insulin Lispro (HumaLOG) vial - multi-dose SQ SCH ×2 (14:09→20:09)
[2020-02-13 18:00] VITALS: BP 122/54
--- NOTE | 2020-02-13 18:25 | NUR ---
Problems reprioritized. Patient report given, questions answered & plan of care reviewed with BOBBY Zamudio.
[2020-02-13] MEDS: traZODone 50mg tablet PO SCH (19:54)
[2020-02-13] MEDS: furosemide 40mg tablet PO SCH (19:55)
[2020-02-13] MEDS: lactobacillus rhamnosus 10,000 MMU CELLS/CAPSULE PO SCH (19:55)
--- NOTE | 2020-02-13 20:00 | NUR ---
Held Heparin. Plt count 80. notified.
[2020-02-13] MEDS: insulin glargine (Lantus) pen - multi-dose SQ SCH (21:40)
[2020-02-13 22:00] VITALS: BP 118/62
[2020-02-14] MEDS: sodium chloride 0.45% 1,000 ML IV SCH ×3 (02:00→14:22)
--- NOTE | 2020-02-14 05:57 | NUR ---
removed FC. patient tolerated well. urinal given.
[2020-02-14 06:00] VITALS: BP 115/62
--- NOTE | 2020-02-14 06:10 | NUR ---
Patient in room ORTHO 4011. I have received report from Donna and had the opportunity to ask questions and assume patient care.
[2020-02-14 06:25] LABS: BASOPHILS # (AUTO) 0.1 X10'3 (0-0.2); EOSINOPHILS # (AUTO) 0.3 X10'3 (0-0.9); EOSINOPHILS % (AUTO) 4.2 % (0-6); MEAN CORPUSCULAR HGB CONC 34.8 g/dL (33.0-36.5); MONOCYTES # (AUTO) 1.1 X10'3 (0-0.9); NEUTROPHILS # (AUTO) 4.6 X10'3 (1.8-7.7); WHITE BLOOD COUNT 7.8 X10'3 (4.5-11.0)
[2020-02-14 06:29] LABS: BASOPHILS % (AUTO) 1.2 % (0-1); HEMATOCRIT 34.5 % (42.0-52.0); LYMPHOCYTES # (AUTO) 1.7 X10'3 (1.1-4.8); LYMPHOCYTES % (AUTO) 21.9 % (21-51); MEAN CORPUSCULAR HEMOGLOBIN 34.6 PG (27.0-31.0); MEAN CORPUSCULAR VOLUME 99.5 FL (78-98); MEAN PLATELET VOLUME 8.3 FL (7.4-10.4); MONOCYTES % (AUTO) 13.8 % (2-12); NEUTROPHILS % (AUTO) 58.9 % (42-75); PLATELET COUNT 84 X10'3 (140-440); RED BLOOD COUNT 3.47 X10'6 (4.70-6.10); RED CELL DISTRIBUTION WIDTH 15.2 % (11.5-14.5)
--- NOTE | 2020-02-14 06:30 | NUR ---
Problems reprioritized. Patient report given, questions answered & plan of care reviewed with BOBBY Jimenez.
[2020-02-14 06:45] LABS: ALANINE AMINOTRANSFERASE 38 U/L (12-78); ALBUMIN 1.8 G/DL (3.4-5.0); ALBUMIN/GLOBULIN RATIO 0.5 (1.1-1.5); ALKALINE PHOSPHATASE 76 IU/L (46-116); AMYLASE 46 U/L (25-115); ANION GAP 6 (8-16); ASPARTATE AMINO TRANSFERASE 49 U/L (10-37); BILIRUBIN,TOTAL 1.9 MG/DL (0.1-1.0); BLOOD UREA NITROGEN 11 MG/DL (7-18); BUN/CREATININE RATIO 15.5 (5.4-32.0); CALCIUM 7.5 MG/DL (8.5-10.1); CHLORIDE 107 MMOL/L (99-107); CREATININE 0.71 MG/DL (0.60-1.10); GLUCOSE 124 MG/DL (70-104); LIPASE 186 U/L (73-393); MAGNESIUM 1.6 MG/DL (1.5-2.4); PHOSPHORUS 3.6 MG/DL (2.3-4.5); POTASSIUM 3.5 MMOL/L (3.5-5.1); SODIUM 138 MMOL/L (135-145); TOTAL CARBON DIOXIDE 25.3 MMOL/L (24-32); TOTAL PROTEIN 5.5 G/DL (6.4-8.2); eGFR > 90 ML/MIN
[2020-02-14] MEDS: K and/or MAG REPLACEMENT MC SCH ×2 (08:00→22:14)
[2020-02-14] MEDS: heparin, porcine 5000 units/ml vial SQ SCH ×2 (08:00→20:00)
[2020-02-14] MEDS: spironolactone 50 MG tablet PO SCH (08:18)
[2020-02-14] MEDS: lactulose 20gm/30ml cup PO SCH ×3 (08:18→21:53)
[2020-02-14] MEDS: docusate sod 100mg capsule PO SCH ×2 (08:19→21:52)
[2020-02-14] MEDS: lactobacillus rhamnosus 10,000 MMU CELLS/CAPSULE PO SCH ×2 (08:20→21:52)
[2020-02-14] MEDS: folic acid 1mg tablet PO SCH (08:20)
[2020-02-14] MEDS: thiamine 100mg tablet PO SCH (08:24)
[2020-02-14] MEDS: metoprolol tartrate 25mg tablet PO SCH ×2 (08:24→21:52)
[2020-02-14] MEDS: multivitamins, therapeutics tablet PO SCH (08:24)
[2020-02-14] MEDS: rifaximin 550mg tablet PO SCH ×2 (08:25→21:52)
[2020-02-14] MEDS: insulin Lispro (HumaLOG) vial - multi-dose SQ SCH ×2 (09:39→13:43)
[2020-02-14 10:00] VITALS: BP 120/53
--- NOTE | 2020-02-14 15:26 | NUR ---
PAGER ID: [phone] MESSAGE: Babrara Valenzuela on neuro, Mr. Velasquez in had only an occasional instence of bradycardia (58), SR, no ectopy Thank you
[2020-02-14 18:00] VITALS: BP 137/55
--- NOTE | 2020-02-14 18:23 | NUR ---
Problems reprioritized. Patient report given, questions answered & plan of care reviewed with
--- NOTE | 2020-02-14 18:42 | NUR ---
Patient in room ORTHO 4011. I have received report from Barbara ROSALES and had the opportunity to ask questions and assume patient care.
[2020-02-14] MEDS: furosemide 40mg tablet PO SCH (21:53)
[2020-02-14] MEDS: traZODone 50mg tablet PO SCH (21:53)
[2020-02-14] MEDS: insulin glargine (Lantus) pen - multi-dose SQ SCH (21:57)
[2020-02-14 22:00] VITALS: BP 120/71
[2020-02-15] MEDS: sodium chloride 0.45% 1,000 ML IV SCH (02:18)
--- NOTE | 2020-02-15 02:20 | NUR ---
WAS NOT ABLE TO SCAN IVF'S, SCANNER ON [employer] SPORATICALLY WILL NOT WORK. USED ADMINISTER BUTTON AND NEW BAG HANGING NOW
[2020-02-15 06:00] VITALS: BP 116/58
[2020-02-15 06:46] LABS: BASOPHILS # (AUTO) 0.1 X10'3 (0-0.2); BASOPHILS % (AUTO) 1.2 % (0-1); EOSINOPHILS # (AUTO) 0.4 X10'3 (0-0.9); EOSINOPHILS % (AUTO) 5.9 % (0-6); LYMPHOCYTES # (AUTO) 1.7 X10'3 (1.1-4.8); LYMPHOCYTES % (AUTO) 24.6 % (21-51); MEAN CORPUSCULAR HEMOGLOBIN 35.2 PG (27.0-31.0); MEAN CORPUSCULAR HGB CONC 35.2 g/dL (33.0-36.5); MEAN CORPUSCULAR VOLUME 100.1 FL (78-98); MEAN PLATELET VOLUME 8.3 FL (7.4-10.4); MONOCYTES % (AUTO) 14.1 % (2-12); NEUTROPHILS # (AUTO) 3.7 X10'3 (1.8-7.7); NEUTROPHILS % (AUTO) 54.2 % (42-75); PLATELET COUNT 85 X10'3 (140-440); RED BLOOD COUNT 3.69 X10'6 (4.70-6.10); RED CELL DISTRIBUTION WIDTH 14.1 % (11.5-14.5); WHITE BLOOD COUNT 6.8 X10'3 (4.5-11.0)
--- NOTE | 2020-02-15 06:46 | NUR ---
Patient in room ORTHO 4011B. I have received report from BOBBY Hanks and had the opportunity to ask questions and assume patient care.
[2020-02-15 07:05] LABS: ALANINE AMINOTRANSFERASE 37 U/L (12-78); ALBUMIN 1.9 G/DL (3.4-5.0); ALBUMIN/GLOBULIN RATIO 0.5 (1.1-1.5); ALKALINE PHOSPHATASE 82 IU/L (46-116); AMYLASE 50 U/L (25-115); ANION GAP 9 (8-16); ASPARTATE AMINO TRANSFERASE 53 U/L (10-37); BILIRUBIN,TOTAL 2.4 MG/DL (0.1-1.0); BLOOD UREA NITROGEN 9 MG/DL (7-18); BUN/CREATININE RATIO 14.8 (5.4-32.0); CALCIUM 7.9 MG/DL (8.5-10.1); CHLORIDE 107 MMOL/L (99-107); CREATININE 0.61 MG/DL (0.60-1.10); GLUCOSE 137 MG/DL (70-104); LIPASE 179 U/L (73-393); MAGNESIUM 1.6 MG/DL (1.5-2.4); PHOSPHORUS 3.5 MG/DL (2.3-4.5); POTASSIUM 3.5 MMOL/L (3.5-5.1); SODIUM 140 MMOL/L (135-145); TOTAL CARBON DIOXIDE 24.4 MMOL/L (24-32); TOTAL PROTEIN 5.9 G/DL (6.4-8.2); eGFR > 90 ML/MIN
[2020-02-15] MEDS: K and/or MAG REPLACEMENT MC SCH (07:20)
[2020-02-15] MEDS: heparin, porcine 5000 units/ml vial SQ SCH (08:00)
[2020-02-15] MEDS: lactulose 20gm/30ml cup PO SCH (08:00)
[2020-02-15] MEDS: multivitamins, therapeutics tablet PO SCH (08:36)
[2020-02-15] MEDS: rifaximin 550mg tablet PO SCH (08:36)
[2020-02-15] MEDS: thiamine 100mg tablet PO SCH (08:36)
[2020-02-15] MEDS: folic acid 1mg tablet PO SCH (08:37)
[2020-02-15] MEDS: metoprolol tartrate 25mg tablet PO SCH (08:37)
[2020-02-15] MEDS: spironolactone 50 MG tablet PO SCH (08:37)
[2020-02-15] MEDS: lactobacillus rhamnosus 10,000 MMU CELLS/CAPSULE PO SCH (08:38)
[2020-02-15] MEDS: docusate sod 100mg capsule PO SCH (08:44)
[2020-02-15] MEDS: insulin Lispro (HumaLOG) vial - multi-dose SQ SCH (08:50)
[2020-02-15 10:00] VITALS: BP 120/63
--- NOTE | 2020-02-15 13:10 | NUR ---
DC INSTRUCTIONS GIVEN TO PT, PT HAD OPPORTUNITY TO ASK QUESTIONS. IV WAS REMOVED CANNULA INTACT, NO COMPLICATIONS. PT WAS ASSISTED IN DRESSING, PERSONAL BELONGINGS WERE PACKED. PHARMACY MEDS WERE GIVEN BACK TO PT. PT WAS WHEELED DOWN TO PRIVATE VEHICLE IN STABLE CONDITION.
[2020-02-15] MEDS ORDERED: LEVO750T21 PO (13:33)
--- NOTE | 2020-02-15 13:47 | NUR ---
CALLED INTO [facility] INTO [facility] [address], CALLED EX- TO NOTIFY HER THAT SCRIPT IS AVAILABLE FOR [place] PAINTER
== END 2020-02-15 11:45 | disposition home or self-care (01) | DRG 720 ==
LOC: ER 09:45 → ED HOLD 13:14 → UNDOADMIN 13:14 → ORTHO 4S 18:00 → ED HOLD 18:00
PROVIDERS: ADMIT Internal Medicine; ATTEND Internal Medicine
DX: A41.9 Sepsis, unspecified organism (principal); G93.41 Metabolic encephalopathy; N17.9 Acute kidney failure, unspecified; E11.22 Type 2 diabetes mellitus with diabetic chronic kidney disease; D69.59 Other secondary thrombocytopenia; N18.6 End stage renal disease; E88.09 Other disorders of plasma-protein metabolism, not elsewhere classified; K86.89 Other specified diseases of pancreas; T67.01XA Heatstroke and sunstroke, initial encounter; K72.90 Hepatic failure, unspecified without coma; F15.10 Other stimulant abuse, uncomplicated; K70.30 Alcoholic cirrhosis of liver without ascites; F17.210 Nicotine dependence, cigarettes, uncomplicated; I89.0 Lymphedema, not elsewhere classified; D53.9 Nutritional anemia, unspecified; E86.0 Dehydration; L03.119 Cellulitis of unspecified part of limb; L40.9 Psoriasis, unspecified; Z20.828 Contact with and (suspected) exposure to other viral communicable diseases; Z59.0 Homelessness; Z91.19 Patient's noncompliance with other medical treatment and regimen; X30.XXXA Exposure to excessive natural heat, initial encounter; Z79.899 Other long term (current) drug therapy
CPT/HCPCS: 36415; 70450; 71045; 76937; 80053; 80305; 80320; 81001; 82140; 82150; 82550; 82948; 83036; 83605; 83690; 83735; 84100; 84145; 84484; 85025; 85610; 87040; 87081; 87635; 93005; 96365; 96368; 97112; 97116; 97161; 97530; 99291; 99292; G0378; J0696; J1644; J1815; J3411; J3475; J3490; J7030; J7060

== ENCOUNTER 2020-02-24 17:18 | Emergency (ER) | payer MEDICAID ==
[~2020-02-24] VITALS: Ht 172.7 cm; Wt 80.0 kg
[~2020-02-24 17:18] MED LIST changes: +LACT10SO PO; -LACT10SO32 PO; -LACT1CAP26 PO; +LEVO750T21 PO; -MAG355OR18 PO; +NADO20TA PO; -ONDA4TAB6 PO; -PROP10TA10 PO; -THIA100T66 PO; -WOOL454C TP
[2020-02-24 21:38] VITALS: BP 141/82
== END 2020-02-24 21:39 | disposition home or self-care (01) ==
LOC: ER 17:18
DX: I87.8 Other specified disorders of veins (principal); M79.89 Other specified soft tissue disorders; E11.9 Type 2 diabetes mellitus without complications; Z72.89 Other problems related to lifestyle; Z60.2 Problems related to living alone; Z56.0 Unemployment, unspecified; Z59.0 Homelessness; Z79.2 Long term (current) use of antibiotics; Z79.899 Other long term (current) drug therapy
CPT/HCPCS: 93971; 99284

== ENCOUNTER 2020-04-03 14:19 | Emergency (ER) | payer MEDICAID ==
[~2020-04-03] VITALS: Ht 172.7 cm; Wt 81.8 kg
[~2020-04-03 14:19] MED LIST changes: -LEVO750T21 PO
[2020-04-03 14:36] VITALS: BP 143/78
[2020-04-03] MEDS ORDERED: ketorolac tromethamine 15mg/ml inj. IM ONE (16:45)
[2020-04-03] MEDS ORDERED: cyclobenzaprine 10mg tablet PO ONE (16:45)
[2020-04-03] MEDS ORDERED: IBUP-1985 PO (17:44)
[2020-04-03] MEDS ORDERED: LIDO700A32 TOP (17:44)
== END 2020-04-03 18:09 | disposition home or self-care (01) ==
LOC: ER 14:20
DX: S16.1XXA Strain of muscle, fascia and tendon at neck level, initial encounter (principal); M54.2 Cervicalgia; E11.9 Type 2 diabetes mellitus without complications; Z72.89 Other problems related to lifestyle; Z60.2 Problems related to living alone; Z56.0 Unemployment, unspecified; Z59.0 Homelessness; Z79.899 Other long term (current) drug therapy; X58.XXXA Exposure to other specified factors, initial encounter; Y93.89 Activity, other specified; Y92.89 Other specified places as the place of occurrence of the external cause; Y99.8 Other external cause status
CPT/HCPCS: 96372; 99283; J1885

== ENCOUNTER 2020-04-21 13:10 | Emergency (ER) | payer MEDICAID ==
[~2020-04-21] VITALS: Ht 172.7 cm; Wt 82.3 kg
[~2020-04-21 13:10] MED LIST changes: +IBUP-1985 PO; +LIDO700A32 TOP
[2020-04-21] MEDS ORDERED: ibuprofen tablet 400 MG TABLET PO ONE (15:05)
[2020-04-21] MEDS ORDERED: TETanus/Pertussis (Acell)/Diphther VAC/PF (Tdap-Adult) 0.5ml syringe IMVAC ONE (15:05)
[2020-04-21] MEDS ORDERED: bacitracin 15gm ointment TP ONE (15:05)
[2020-04-21] MEDS ORDERED: cyclobenzaprine 10mg tablet PO ONE (15:15)
[2020-04-21 16:40] VITALS: BP 130/99
== END 2020-04-21 16:42 | disposition home or self-care (01) ==
LOC: ER 13:10
DX: S81.812A Laceration without foreign body, left lower leg, initial encounter (principal); M54.2 Cervicalgia; W01.118A Fall on same level from slipping, tripping and stumbling with subsequent striking against other sharp object, initial encounter; Y93.89 Activity, other specified; Y92.89 Other specified places as the place of occurrence of the external cause; Y99.8 Other external cause status
CPT/HCPCS: 12004; 90471; 90715; 99284

== ENCOUNTER 2020-04-24 16:20 | Emergency (ER) | payer MEDICAID ==
[~2020-04-24] VITALS: Ht 172.7 cm; Wt 66.0 kg
[~2020-04-24 16:20] MED LIST changes: -NADO20TA PO; +NADO20TA5 PO
[2020-04-24 17:27] LABS: BASOPHILS # (AUTO) 0.1 X10'3 (0-0.2); BASOPHILS % (AUTO) 2.4 % (0-1); EOSINOPHILS # (AUTO) 0.4 X10'3 (0-0.9); HEMATOCRIT 33.6 % (42.0-52.0); LYMPHOCYTES # (AUTO) 1.3 X10'3 (1.1-4.8); MONOCYTES # (AUTO) 0.6 X10'3 (0-0.9); NEUTROPHILS # (AUTO) 2.1 X10'3 (1.8-7.7); RED CELL DISTRIBUTION WIDTH 16.7 % (11.5-14.5); WHITE BLOOD COUNT 4.5 X10'3 (4.5-11.0)
[2020-04-24 17:29] LABS: EOSINOPHILS % (AUTO) 7.9 % (0-6); HEMOGLOBIN 11.5 g/dl (14.0-17.9); MEAN CORPUSCULAR HEMOGLOBIN 35.8 PG (27.0-31.0); MEAN CORPUSCULAR HGB CONC 34.3 g/dL (33.0-36.5); MEAN CORPUSCULAR VOLUME 104.5 FL (78-98); MEAN PLATELET VOLUME 8.5 FL (7.4-10.4); NEUTROPHILS % (AUTO) 47.7 % (42-75); PLATELET COUNT 111 X10'3 (140-440); RED BLOOD COUNT 3.22 X10'6 (4.70-6.10)
[2020-04-24 17:37] LABS: ALANINE AMINOTRANSFERASE 70 U/L (12-78); ALBUMIN 2.2 G/DL (3.4-5.0); ALBUMIN/GLOBULIN RATIO 0.5 (1.1-1.5); ALKALINE PHOSPHATASE 102 IU/L (46-116); ANION GAP 5 (8-16); ASPARTATE AMINO TRANSFERASE 100 U/L (10-37); BLOOD UREA NITROGEN 7 MG/DL (7-18); BUN/CREATININE RATIO 10.1 (5.4-32.0); CALCIUM 7.3 MG/DL (8.5-10.1); CHLORIDE 105 MMOL/L (99-107); CREATININE 0.69 MG/DL (0.60-1.10); GLUCOSE 183 MG/DL (70-104); MAGNESIUM 1.9 MG/DL (1.5-2.4); SODIUM 135 MMOL/L (135-145); TOTAL CARBON DIOXIDE 25.1 MMOL/L (24-32); TOTAL PROTEIN 6.5 G/DL (6.4-8.2); eGFR > 90 ML/MIN
[2020-04-24 17:40] LABS: POTASSIUM 2.8 MMOL/L (3.5-5.1)
[2020-04-24] MEDS ORDERED: potassium Cl 20 mEq SR tablet PO STA (17:58)
[2020-04-24] MEDS ORDERED: CEPH500C5 PO (18:32)
[2020-04-24] MEDS ORDERED: cephalexin 250mg capsule PO ONE (18:35)
[2020-04-24 19:13] VITALS: BP 129/75
--- NOTE | 2020-04-24 19:14 | NUR ---
{null, No SpO2 monitoring charted on Pt during his stay due to faulty SpO2 sensor and no replacment able to be found. }
[2020-04-25] MEDS ORDERED: AMOX-422 PO (19:36)
== END 2020-04-24 19:15 | disposition home or self-care (01) ==
LOC: ER 16:21
DX: S81.812D Laceration without foreign body, left lower leg, subsequent encounter (principal); K74.60 Unspecified cirrhosis of liver; E87.6 Hypokalemia; E11.9 Type 2 diabetes mellitus without complications; Z60.2 Problems related to living alone; Z59.0 Homelessness; Z56.0 Unemployment, unspecified; Z79.2 Long term (current) use of antibiotics; Z79.899 Other long term (current) drug therapy; W01.118D Fall on same level from slipping, tripping and stumbling with subsequent striking against other sharp object, subsequent encounter
CPT/HCPCS: 36415; 71045; 80053; 83605; 83735; 84145; 85025; 87040; 99284

== ENCOUNTER 2020-04-25 18:07 | Emergency (ER) | payer MEDICAID ==
[~2020-04-25 18:07] MED LIST changes: +CEPH500C5 PO
[2020-04-25] MEDS ORDERED: normal saline 1000ML IV soln IV ONE (18:25)
[2020-04-25] MEDS ORDERED: acetaminophen 325mg tablet PO ONE (18:30)
[2020-04-25 18:55] LABS: BASOPHILS # (AUTO) 0.1 X10'3 (0-0.2); BASOPHILS % (AUTO) 1.1 % (0-1); EOSINOPHILS # (AUTO) 0.1 X10'3 (0-0.9); EOSINOPHILS % (AUTO) 1.6 % (0-6); HEMATOCRIT 32.1 % (42.0-52.0); HEMOGLOBIN 11.4 g/dl (14.0-17.9); LYMPHOCYTES # (AUTO) 0.9 X10'3 (1.1-4.8); LYMPHOCYTES % (AUTO) 12.9 % (21-51); MEAN CORPUSCULAR HEMOGLOBIN 36.7 PG (27.0-31.0); MEAN CORPUSCULAR HGB CONC 35.5 g/dL (33.0-36.5); MEAN CORPUSCULAR VOLUME 103.2 FL (78-98); MEAN PLATELET VOLUME 8.2 FL (7.4-10.4); MONOCYTES # (AUTO) 0.9 X10'3 (0-0.9); MONOCYTES % (AUTO) 11.7 % (2-12); NEUTROPHILS # (AUTO) 5.3 X10'3 (1.8-7.7); NEUTROPHILS % (AUTO) 72.7 % (42-75); PLATELET COUNT 119 X10'3 (140-440); RED BLOOD COUNT 3.11 X10'6 (4.70-6.10); RED CELL DISTRIBUTION WIDTH 16.4 % (11.5-14.5); WHITE BLOOD COUNT 7.3 X10'3 (4.5-11.0)
[2020-04-25 18:57] LABS: CLARITY,URINE CLEAR (Clear); COLOR,URINE YELLOW (Yellow); GLUCOSE, URINE NEGATIVE (Neg); KETONES,URINE NEGATIVE (Neg); LEUKOCYTE ESTERASE ,URINE NEGATIVE (Neg); NITRITES, URINE NEGATIVE (Neg); OCCULT BLOOD,URINE TRACE-INTACT (Neg); PROTEIN,URINE NEGATIVE (Neg)
[2020-04-25 19:05] LABS: ALANINE AMINOTRANSFERASE 65 U/L (12-78); ALBUMIN 2.2 G/DL (3.4-5.0); ALBUMIN/GLOBULIN RATIO 0.5 (1.1-1.5); ALKALINE PHOSPHATASE 89 IU/L (46-116); ANION GAP 6 (8-16); ASPARTATE AMINO TRANSFERASE 93 U/L (10-37); BILIRUBIN,TOTAL 2.5 MG/DL (0.1-1.0); BLOOD UREA NITROGEN 9 MG/DL (7-18); BUN/CREATININE RATIO 11.8 (5.4-32.0); CALCIUM 7.7 MG/DL (8.5-10.1); CHLORIDE 104 MMOL/L (99-107); CREATININE 0.76 MG/DL (0.60-1.10); GLUCOSE 144 MG/DL (70-104); POTASSIUM 3.2 MMOL/L (3.5-5.1); SODIUM 135 MMOL/L (135-145); TOTAL CARBON DIOXIDE 25.3 MMOL/L (24-32); TOTAL PROTEIN 6.6 G/DL (6.4-8.2); eGFR > 90 ML/MIN
[2020-04-25 19:07] LABS: LACTIC SEPSIS 1.6 MMOL/L (0.4-2.0)
[2020-04-25 19:09] LABS: UA COLLECTION TYPE STRAIGHT CATH
[2020-04-25 19:10] LABS: BACTERIA,URINE FEW /HPF (Neg); MUCUS STRANDS FEW /LPF (Neg); RBC,URINE 0-2 /HPF (0-2); SQUAMOUS EPITHELIAL CELL,UR FEW /LPF (FEW); WBC,URINE 0-4 /HPF (0-4)
[2020-04-25 19:13] LABS: ETHANOL < 0.010 GM/DL (0.0-0.010); MAGNESIUM 1.8 MG/DL (1.5-2.4)
[2020-04-25 19:26] LABS: URINE AMPHETAMINE SCREEN POSITIVE (Neg); URINE BARBITUATE SCREEN NEGATIVE (Neg); URINE BENZODIAZEPINES SCREEN NEGATIVE (Neg); URINE CANNABINOID SCREEN NEGATIVE (Neg); URINE COCAINE SCREEN NEGATIVE (Neg); URINE METHADONE SCREEN NEGATIVE (Neg); URINE OPIATE SCREEN NEGATIVE (Neg); URINE PHENCYCLIDINE SCREEN NEGATIVE (Neg)
[2020-04-25] MEDS ORDERED: AMOX-422 PO (19:36)
[2020-04-25] MEDS ORDERED: lactulose 20gm/30ml cup PO ONE (19:45)
--- NOTE | 2020-04-25 20:05 | NUR ---
PATIENT'S MENTATION HAS IMPROVED, HE IS NOW AOX4, AND HE WANTS TO GO HOME. PATIENT GIVEN LACTULOSE AND WILL BE GAIT TESTED BEFORE DISCHARGE.
[2020-04-25 20:55] VITALS: BP 127/74
== END 2020-04-25 20:57 | disposition home or self-care (01) ==
LOC: ER 18:08
DX: F15.10 Other stimulant abuse, uncomplicated (principal); L08.9 Local infection of the skin and subcutaneous tissue, unspecified; E11.9 Type 2 diabetes mellitus without complications; G89.29 Other chronic pain; M79.605 Pain in left leg; M79.604 Pain in right leg; R60.9 Edema, unspecified; Z56.0 Unemployment, unspecified; Z59.0 Homelessness; Z60.2 Problems related to living alone; Z79.01 Long term (current) use of anticoagulants; Z79.899 Other long term (current) drug therapy
CPT/HCPCS: 36415; 71045; 80053; 80305; 80320; 81001; 82140; 83605; 83735; 83880; 84145; 85025; 87040; 93005; 96360; 99285; J7030

== ENCOUNTER 2021-02-16 15:10 | Emergency (ER) | payer MEDICAID ==
[~2021-02-16] VITALS: Ht 182.9 cm; Wt 82.7 kg
[~2021-02-16 15:10] MED LIST changes: +CEPH-585 PO; -CEPH500C5 PO; -LACT10SO PO; +LACT10SO3 PO
[2021-02-16 16:53] LABS: ALANINE AMINOTRANSFERASE 64 U/L (12-78); ALBUMIN 2.2 G/DL (3.4-5.0); ALBUMIN/GLOBULIN RATIO 0.6 (1.1-1.5); ALKALINE PHOSPHATASE 90 IU/L (46-116); ANION GAP 6 (8-16); ASPARTATE AMINO TRANSFERASE 72 U/L (10-37); BASOPHILS # (AUTO) 0.1 X10'3 (0-0.2); BILIRUBIN,TOTAL 2.3 MG/DL (0.1-1.0); BLOOD UREA NITROGEN 10 MG/DL (7-18); BUN/CREATININE RATIO 13.3 (5.4-32.0); CHLORIDE 106 MMOL/L (99-107); CREATININE 0.75 MG/DL (0.60-1.10); EOSINOPHILS # (AUTO) 0.5 X10'3 (0-0.9); GLUCOSE 122 MG/DL (70-104); HEMOGLOBIN 11.7 g/dl (14.0-17.9); MEAN PLATELET VOLUME 8.1 FL (7.4-10.4); MONOCYTES # (AUTO) 0.8 X10'3 (0-0.9); POTASSIUM 3.8 MMOL/L (3.5-5.1); RED BLOOD COUNT 3.38 X10'6 (4.70-6.10); SODIUM 139 MMOL/L (135-145); TOTAL CARBON DIOXIDE 27.2 MMOL/L (24-32); WHITE BLOOD COUNT 5.5 X10'3 (4.5-11.0); eGFR > 90 ML/MIN
[2021-02-16 16:55] LABS: BASOPHILS % (AUTO) 1.8 % (0-1); EOSINOPHILS % (AUTO) 9.1 % (0-6); HEMATOCRIT 33.1 % (42.0-52.0); LYMPHOCYTES % (AUTO) 36.8 % (21-51); MEAN CORPUSCULAR HEMOGLOBIN 34.6 PG (27.0-31.0); MEAN CORPUSCULAR HGB CONC 35.3 g/dL (33.0-36.5); MONOCYTES % (AUTO) 15.1 % (2-12); NEUTROPHILS % (AUTO) 37.2 % (42-75); PLATELET COUNT 124 X10'3 (140-440); RED CELL DISTRIBUTION WIDTH 17.1 % (11.5-14.5)
[2021-02-16 19:30] LABS: ANISOCYTOSIS 1+; PLATELET ESTIMATE DECREASED; TOTAL CELLS COUNTED 100
[2021-02-16 19:31] LABS: ELLIPTOCYTES FEW; LARGE PLATELETS FEW; POIKILOCYTOSIS FEW
[2021-02-16] MEDS ORDERED: spironolactone 50 MG tablet PO STA (21:14)
[2021-02-16] MEDS ORDERED: furosemide 10 MG/1 ML 10ml inj IV ONE (21:15)
[2021-02-16] MEDS ORDERED: FURO40TA4 PO (21:24)
--- NOTE | 2021-02-16 21:30 | NUR ---
PT UP TO VBR AMBULATING W STEADY SLOW GAIT. PT TO RECEIVE IV LASIX AND PO RX THEN CAN BE DISCHARGED. PT REPORTS HE WILL NEED ASSISTANCE TO GET HOME. HAS NOONE TO TAKE HIM HOME.
--- NOTE | 2021-02-16 22:55 | NUR ---
UNABLE TO PLACE IV AFTER [address] SAM UPDATED OF THIS AND OK TO HAVE PT TAKE PO LASIX 100 MG PRIOR TO DC. PT IS AGREEABLE TO THIS PLAN. PT WITH FRIEND AT BEDSIDE.
[2021-02-16] MEDS ORDERED: furosemide 20MG tablet PO ONE (23:00)
[2021-02-16 23:07] VITALS: BP 153/78
== END 2021-02-16 23:10 | disposition home or self-care (01) ==
LOC: ER 15:11
DX: R60.9 Edema, unspecified (principal); E11.9 Type 2 diabetes mellitus without complications; G89.29 Other chronic pain; F17.200 Nicotine dependence, unspecified, uncomplicated; Z60.2 Problems related to living alone; Z56.0 Unemployment, unspecified; Z59.0 Homelessness; Z79.2 Long term (current) use of antibiotics; Z79.899 Other long term (current) drug therapy
CPT/HCPCS: 36415; 71045; 80053; 82948; 83880; 84484; 85007; 85025; 93005; 99285

== ENCOUNTER 2021-03-08 17:47 | Inpatient (IN) | payer MEDICAID ==
[~2021-03-08] VITALS: Ht 170.2 cm; Wt 90.0 kg
[2021-03-08] MEDS ORDERED: normal saline 1000ML IV soln IV ONE (18:00)
[2021-03-08] MEDS ORDERED: acetaminophen 325mg tablet PO STA (18:01)
[2021-03-08] MEDS ORDERED: piperacillin/tazo 3.375gm/50ml 50 ML IV ONE (18:05)
[2021-03-08 19:05] LABS: BASOPHILS % (AUTO) 0.3 % (0-1); EOSINOPHILS % (AUTO) 0.1 % (0-6); HEMATOCRIT 32.4 % (42.0-52.0); HEMOGLOBIN 11.2 g/dl (14.0-17.9); LYMPHOCYTES # (AUTO) 1.1 X10'3 (1.1-4.8); LYMPHOCYTES % (AUTO) 6.6 % (21-51); MEAN CORPUSCULAR HEMOGLOBIN 34.8 PG (27.0-31.0); MEAN CORPUSCULAR HGB CONC 34.5 g/dL (33.0-36.5); MEAN CORPUSCULAR VOLUME 101.1 FL (78-98); MEAN PLATELET VOLUME 6.6 FL (7.4-10.4); MONOCYTES # (AUTO) 1.8 X10'3 (0-0.9); MONOCYTES % (AUTO) 11.3 % (2-12); NEUTROPHILS # (AUTO) 13.3 X10'3 (1.8-7.7); NEUTROPHILS % (AUTO) 81.7 % (42-75); PLATELET COUNT 125 X10'3 (140-440); RED CELL DISTRIBUTION WIDTH 18.8 % (11.5-14.5); WHITE BLOOD COUNT 16.2 X10'3 (4.5-11.0)
--- NOTE | 2021-03-08 19:15 | NUR ---
Notified Pt unable to follow commands, altered. Pt stated he hit his head when he fell and complains of pain in his head during physical assessment.
[2021-03-08 20:21] LABS: ALANINE AMINOTRANSFERASE 126 U/L (12-78); ALBUMIN 1.7 G/DL (3.4-5.0); ALBUMIN/GLOBULIN RATIO 0.4 (1.1-1.5); ASPARTATE AMINO TRANSFERASE 366 U/L (10-37); BILIRUBIN,TOTAL 2.3 MG/DL (0.1-1.0); BLOOD UREA NITROGEN 21 MG/DL (7-18); BUN/CREATININE RATIO 19.6 (5.4-32.0); CALCIUM 7.3 MG/DL (8.5-10.1); CREATININE 1.07 MG/DL (0.60-1.10); GLUCOSE 166 MG/DL (70-104); TOTAL CARBON DIOXIDE 21.6 MMOL/L (24-32); TOTAL PROTEIN 5.6 G/DL (6.4-8.2); eGFR 70 ML/MIN
[2021-03-08 20:22] LABS: ALKALINE PHOSPHATASE 125 IU/L (46-116); ANION GAP 10 (8-16); CHLORIDE 108 MMOL/L (99-107); ETHANOL < 0.010 GM/DL (0.0-0.010); POTASSIUM 3.9 MMOL/L (3.5-5.1); SODIUM 140 MMOL/L (135-145)
[2021-03-08 20:53] LABS: CLARITY,URINE CLOUDY (Clear); COLOR,URINE YELLOW (Yellow); GLUCOSE, URINE NEGATIVE (Neg); KETONES,URINE NEGATIVE (Neg); LEUKOCYTE ESTERASE ,URINE NEGATIVE (Neg); NITRITES, URINE NEGATIVE (Neg); OCCULT BLOOD,URINE LARGE (Neg); PH,URINE 5.5 (4.8-8.0); PROTEIN,URINE 100 mg/dl (Neg)
[2021-03-08 21:00] LABS: ANISOCYTOSIS 2+; PLATELET ESTIMATE NORMAL
[2021-03-08] MEDS ORDERED: temazepam 15mg capsule PO PRN (21:00)
[2021-03-08 21:01] LABS: SCHISTOCYTES FEW
[2021-03-08 21:02] LABS: URINE AMPHETAMINE SCREEN POSITIVE (Neg); URINE BARBITUATE SCREEN NEGATIVE (Neg); URINE BENZODIAZEPINES SCREEN NEGATIVE (Neg); URINE CANNABINOID SCREEN NEGATIVE (Neg); URINE COCAINE SCREEN NEGATIVE (Neg); URINE METHADONE SCREEN NEGATIVE (Neg); URINE OPIATE SCREEN NEGATIVE (Neg); URINE PHENCYCLIDINE SCREEN NEGATIVE (Neg)
[2021-03-08 21:24] LABS: UA COLLECTION TYPE CLN CATCH MIDSTREAM
[2021-03-08 21:30] LABS: BACTERIA,URINE 4+ /HPF (Neg); MUCUS STRANDS MODERATE /LPF (Neg); RBC,URINE 20-50 /HPF (0-2); SQUAMOUS EPITHELIAL CELL,UR MODERATE /LPF (FEW); TRANSITIONAL EPI CELLS,URINE FEW /HPF; WBC,URINE 0-4 /HPF (0-4)
[2021-03-08] MEDS ORDERED: MESSAGE TO PHARMACY PO ONE (22:20)
[2021-03-08] MEDS ORDERED: glucagon, human recombinant 1mg kit SUBCUT PRN (22:20)
[2021-03-08] MEDS ORDERED: dextrose ORAL solution 15 GM/59 ML bottle PO PRN ×2 (22:20)
[2021-03-08] MEDS ORDERED: dextrose 50%-water 50ml dispensing syringe IV PRN ×2 (22:20)
[2021-03-08] MEDS ORDERED: potassium Cl 20 mEq SR tablet PO PRN (22:25)
[2021-03-08] MEDS ORDERED: ondansetron/PF 4mg/2ml inj IV PRN (22:25)
[2021-03-08] MEDS ORDERED: acetaminophen 325mg tablet PO PRN (22:25)
[2021-03-08] MEDS ORDERED: HYDROcodone/acetaminophen 10/325mg tab PO PRN (22:25)
[2021-03-08] MEDS ORDERED: magnesium Cl slow-release 64mg tablet PO PRN (22:25)
[2021-03-08] MEDS ORDERED: magnesium 2GM in 50ml NS 50 ML IV PRN (22:25)
[2021-03-08] MEDS ORDERED: mag hydrox/Alum hydrox/simeth 30ml oral suspension PO PRN (22:25)
[2021-03-08] MEDS ORDERED: LORazepam 2 mg/ml vial IV PRN (22:25)
[2021-03-08] MEDS ORDERED: magnesium hydroxide 30ml (MOM) UD suspension PO PRN (22:25)
[2021-03-08] MEDS ORDERED: magnesium 4gm in 100ml NS 100 ML IV PRN (22:25)
[2021-03-08] MEDS ORDERED: potassium Cl 40MEQ/1/2NS 520ml 520 ML IV PRN ×2 (22:25)
[2021-03-08] MEDS ORDERED: morphine 2 MG/ML inj. syringe IV PRN (22:25)
[2021-03-08] MEDS ORDERED: HYDROcodone/acetaminophen 5mg/325mg tablet PO PRN (22:25)
[2021-03-08 22:43] LABS: HEMOGLOBIN A1C 8.3 % (4.5-6.2)
[2021-03-08] MEDS: normal saline 1000ml 1,000 ML IV SCH (23:49)
[2021-03-09] MEDS ORDERED: UNABLE TO OBTAIN (00:08)
--- NOTE | 2021-03-09 00:09 | NUR ---
Unable to obtain a medication list at this time. Pt aloc still and no demographic information or next of kin identified. Pharmacy contacted regarding issues and Pharmacist Prudence states to enter "unable to obtain home medications" in system for pt. She states pharmacist in AM will address medication list.
--- NOTE | 2021-03-09 03:14 | NUR ---
PT STATING HE HAS CHEST PAIN AND HOLDING HIS CHEST. PAGED DR. MAYO REGARDING PT CONDITION AND REQUESTING ORDER FOR EKG AND TROPONIN BLOOD TEST. AWAITING RESPONSE FROM DR. MAYO
--- NOTE | 2021-03-09 03:17 | NUR ---
Pt reports new onset chest pain. EKG complete. MD notified.
--- NOTE | 2021-03-09 03:25 | NUR ---
DR. MAYO CALLED REGARDING PAGE. I REQUESTED AN EKG FOR NEW CHEST PAIN IN PATIENT, SHE AGREED AND ASKED ME TO ORDER IT. I REQUESTED A SERIES OF TROPONIN BLOOD TESTS IN PAGE AND SHE SAID SHE ORDERED SOME. I REQUESTED A PBNP BLOOD TEST DUE TO LARGE AMOUNTS OF PITTING EDEMA TO PT LEGS UP TO GROIN, SHE AGREED AND HAD ME ORDER IT VERBAL ORDER. UPON CHECKING THE LABS THAT HAVE BEEN ORDERED FOR THE PT I REALIZED THE TROPONINS HAD NOT BEEN ORDERED BY HER. I PUT IN THE ORDER FOR TROPONIN SERIES, EKG, AND PBNP.
[2021-03-09 03:59] LABS: TROPONIN I 0.09 NG/ML (0.0-0.05)
[2021-03-09 04:20] LABS: BASOPHILS % (AUTO) 0.3 % (0-1); EOSINOPHILS # (AUTO) 0.1 X10'3 (0-0.9); LYMPHOCYTES # (AUTO) 1.5 X10'3 (1.1-4.8)
[2021-03-09 04:22] LABS: EOSINOPHILS % (AUTO) 0.4 % (0-6); HEMATOCRIT 33.2 % (42.0-52.0); HEMOGLOBIN 11.5 g/dl (14.0-17.9); LYMPHOCYTES % (AUTO) 9.2 % (21-51); MEAN CORPUSCULAR HEMOGLOBIN 34.5 PG (27.0-31.0); MEAN CORPUSCULAR HGB CONC 34.6 g/dL (33.0-36.5); MEAN CORPUSCULAR VOLUME 99.8 FL (78-98); MEAN PLATELET VOLUME 6.6 FL (7.4-10.4); MONOCYTES % (AUTO) 12.2 % (2-12); NEUTROPHILS # (AUTO) 12.7 X10'3 (1.8-7.7); NEUTROPHILS % (AUTO) 77.9 % (42-75); PLATELET COUNT 126 X10'3 (140-440); RED BLOOD COUNT 3.33 X10'6 (4.70-6.10); RED CELL DISTRIBUTION WIDTH 18.3 % (11.5-14.5); WHITE BLOOD COUNT 16.3 X10'3 (4.5-11.0)
[2021-03-09 04:25] LABS: ALANINE AMINOTRANSFERASE 148 U/L (12-78); ALBUMIN 1.8 G/DL (3.4-5.0); ALBUMIN/GLOBULIN RATIO 0.5 (1.1-1.5); ALKALINE PHOSPHATASE 128 IU/L (46-116); ASPARTATE AMINO TRANSFERASE 409 U/L (10-37); BILIRUBIN,TOTAL 2.3 MG/DL (0.1-1.0); BLOOD UREA NITROGEN 24 MG/DL (7-18); BUN/CREATININE RATIO 24.5 (5.4-32.0); CREATININE 0.98 MG/DL (0.60-1.10); GLUCOSE 142 MG/DL (70-104); MAGNESIUM 2.2 MG/DL (1.5-2.4); TOTAL CARBON DIOXIDE 22.5 MMOL/L (24-32); TOTAL PROTEIN 5.5 G/DL (6.4-8.2); eGFR 78 ML/MIN
[2021-03-09 04:32] LABS: ANION GAP 11 (8-16); CHLORIDE 107 MMOL/L (99-107); POTASSIUM 3.8 MMOL/L (3.5-5.1); SODIUM 140 MMOL/L (135-145)
[2021-03-09 05:41] LABS: TROPONIN I 0.09 NG/ML (0.0-0.05)
--- NOTE | 2021-03-09 05:45 | NUR ---
Discussed concerns of increased sacral, bilat LE edema and increased work of breathing w/ MD. Magu. TORRES to place orders.
--- NOTE | 2021-03-09 06:50 | NUR ---
PAGER ID: [phone] MESSAGE: ER patient TANYA, has history of cirrhosis and takes lactulose at home, hasn't had an ammonia checked. Can I please add this to his labs? [email or web address] [phone]
--- NOTE | 2021-03-09 07:43 | NUR ---
Patient incontinent of urine. Linens changed.
[2021-03-09] MEDS: K and/or MAG REPLACEMENT MC SCH ×2 (08:00→20:05)
[2021-03-09] MEDS: furosemide 10 MG/1 ML 10ml inj IV SCH ×2 (08:13→20:05)
[2021-03-09] MEDS: heparin, porcine 5000 units/ml vial SQ SCH ×2 (08:13→20:04)
[2021-03-09 08:20] VITALS: BP 160/83
[2021-03-09] MEDS: albuterol 2.5 MG/3 ML nebule NEB SCH ×3 (08:23→20:35)
--- NOTE | 2021-03-09 09:36 | NUR ---
Page Sent PAGER ID: [phone] MESSAGE: [phone] Eva pt has a 3rd positive blood culture drawn from a separate site left arm. gram negative rods. thanks sukhdev [phone]
[2021-03-09] MEDS: CefTRIAXone 2gm/D5W 50ml BAG 50 ML IV SCH (09:56)
[2021-03-09 10:00] VITALS: BP 162/98
[2021-03-09] MEDS ORDERED: LIRA0.6P SQ (10:49)
[2021-03-09] MEDS ORDERED: LISI20TA28 PO (10:49)
[2021-03-09] MEDS ORDERED: INSU100I31 SQ (10:49)
[2021-03-09] MEDS ORDERED: FERR-106 PO (10:49)
[2021-03-09] MEDS ORDERED: INSU100I39 SQ (10:49)
--- NOTE | 2021-03-09 11:07 | NUR ---
Page Sent PAGER ID: [phone] MESSAGE: [phone] B Eva, pt med rec has not been addressed. pt ammonia level is 56, do you want to give him some lactulose? sukhdev [phone]
[2021-03-09] MEDS ORDERED: LIRAGLUTIDE 0.6 MG/0.1 ML PEN.INJCTR SQ SCH (11:59)
[2021-03-09] MEDS ORDERED: insulin glargine (Lantus) pen - multi-dose SQ SCH (12:01)
--- NOTE | 2021-03-09 12:19 | NUR ---
PAGER ID: [phone] MESSAGE: [phone] TANYA pt has been npo since last night, can we get a diet ordered for him? thanks sukhdev [phone]
[2021-03-09] MEDS ORDERED: insulin Lispro (HumaLOG) vial - multi-dose SQ SCH (12:30)
--- NOTE | 2021-03-09 12:45 | NUR ---
community arts worker came to nurses station concerned about a possible facial droop, performed neuro exam and an nih; no neurologic deficits NIH 0. Patients smile is symmetrical; does not have teeth in at baseline.
--- NOTE | 2021-03-09 13:49 | NUR ---
Paracentesis ordred mid afternoon after AM heparin administration; rescheduled for tomorrow also patient was not alert enough to give consent.
--- NOTE | 2021-03-09 13:56 | NUR ---
PAGER ID: [phone] MESSAGE: [id number], is there a reason he is NPO? he needs this lactulose and the order is not the same dosage rectally. What would you like me to do? roseanne [phone]
[2021-03-09] MEDS: spironolactone 25 MG tablet PO SCH (14:04)
[2021-03-09] MEDS: lactulose 20gm/30ml cup PO SCH ×2 (14:05→20:05)
[2021-03-09] MEDS: ferrous sulfate 325mg tablet PO SCH (14:05)
[2021-03-09] MEDS: multivitamins, therapeutics tablet PO SCH (14:05)
[2021-03-09 15:35] VITALS: BP 134/78
--- NOTE | 2021-03-09 15:37 | NUR ---
In to do hourly rounds; patient was very warm to the touch. Checked his temperature orally and it was 102.7. Tylenol crushed and given in applesauce. Patient is very lethargic and can only open his eyes for brief periods of time. All other vital signs are within normal limits and urine output has been 2750 in just this shift alone from diuresis. Will continue to monitor.
--- NOTE | 2021-03-09 16:21 | NUR ---
DM Consult: Pt admit DX sepsis, hepatic encephalopathy, possible UTI, and T2DM A1C 8.3. Pt hx heavy etoh and positive for meth on admit per EMR. Receiving routine MVI; JOSE d/w RN regarding routine thiamin, folic if MD agreeable given etoh hx. Pt s/p CT abdomen/pelvis showing ascites,cirrhosis w/ moderate gas and stool in rectum per EMR. Ammonia 56 on admit w/ lactulose ordered however pt NPO at this time pending CELL LINER BSS w/ALOC. Will monitor for CELL LINER recs, diet advancement, PO tolerance, and additional protein/kcal needs. Pt would benefit from DM ed once appropriate this admit given A1C. Rec: 1. advance diet as medically indicated to heart healthy/carb controlled per CELL LINER/MD recs 2. monitor for ONS needs 3. routine bowel care; lactulose Q6H per MD w/ ammonia 56 on admit 4. thiamin, folic, MVI for etoh 5. scaled wt this admit; subsequent weekly wts 6. DM ed once pt appropriate hx T2DM A1C 8.3; deferred at this time Addendum: 03/09/21 at [address] Amended: Links added.
--- NOTE | 2021-03-09 17:11 | NUR ---
Rechecked patients temperature and it was 100.
[2021-03-09] MEDS: normal saline 1000ml 1,000 ML IV SCH ×2 (17:32→17:46)
[2021-03-09] MEDS: metroNIDAZOLE-Flagyl 500mg/NS 100 ML IV SCH (17:41)
[2021-03-09 18:00] VITALS: BP 108/66
--- NOTE | 2021-03-09 18:35 | NUR ---
Problems reprioritized. Patient report given, questions answered & plan of care reviewed with Aida ROSALES.
[2021-03-09] MEDS: insulin glargine (Lantus) pen - multi-dose SQ SCH (21:00)
[2021-03-09 22:00] VITALS: BP 144/75
[2021-03-10] MEDS: metroNIDAZOLE-Flagyl 500mg/NS 100 ML IV SCH ×4 (01:00→23:40)
[2021-03-10] MEDS: lactulose 20gm/30ml cup PO SCH ×4 (01:00→19:59)
[2021-03-10] MEDS: LORazepam 1 MG tablet PO PRN ×2 (01:41→19:07)
--- NOTE | 2021-03-10 01:41 | NUR ---
PT agitated, pulling on tele. "i want to drink i need a drink, i'm freezing I'm so cold" noted pt hands shakey, sweat on brow - temp oral 99.8 - gave 1 blanket, repositioned. drink of water, and ativan. will cont to monitor
[2021-03-10] MEDS: albuterol 2.5 MG/3 ML nebule NEB SCH ×4 (04:31→20:01)
--- NOTE | 2021-03-10 06:01 | NUR ---
reported to days. noted pt resting w/o distress. anticipate paracentesis today. need to hold heparin this am. condom cath intact.
--- NOTE | 2021-03-10 06:27 | NUR ---
Patient in room ORTHO 4011. I have received report from ESME ROSALES and had the opportunity to ask questions and assume patient care.
[2021-03-10 06:33] VITALS: BP 129/105
[2021-03-10] MEDS: ferrous sulfate 325mg tablet PO SCH (07:08)
[2021-03-10] MEDS: multivitamins, therapeutics tablet PO SCH (07:08)
[2021-03-10] MEDS: furosemide 10 MG/1 ML 10ml inj IV SCH ×2 (07:12→19:59)
[2021-03-10 07:32] LABS: ALANINE AMINOTRANSFERASE 150 U/L (12-78); ALBUMIN 1.7 G/DL (3.4-5.0); ALBUMIN/GLOBULIN RATIO 0.5 (1.1-1.5); ALKALINE PHOSPHATASE 125 IU/L (46-116); ANION GAP 10 (8-16); ASPARTATE AMINO TRANSFERASE 311 U/L (10-37); BILIRUBIN,TOTAL 2.6 MG/DL (0.1-1.0); BLOOD UREA NITROGEN 27 MG/DL (7-18); BUN/CREATININE RATIO 28.7 (5.4-32.0); CALCIUM 7.2 MG/DL (8.5-10.1); CHLORIDE 110 MMOL/L (99-107); CREATININE 0.94 MG/DL (0.60-1.10); GLUCOSE 175 MG/DL (70-104); MAGNESIUM 1.8 MG/DL (1.5-2.4); POTASSIUM 3.9 MMOL/L (3.5-5.1); SODIUM 142 MMOL/L (135-145); TOTAL CARBON DIOXIDE 21.9 MMOL/L (24-32); TOTAL PROTEIN 5.3 G/DL (6.4-8.2); eGFR 81 ML/MIN
[2021-03-10 07:54] LABS: BASOPHILS % (AUTO) 0.3 % (0-1); EOSINOPHILS # (AUTO) 0.1 X10'3 (0-0.9); EOSINOPHILS % (AUTO) 0.7 % (0-6); HEMATOCRIT 33.3 % (42.0-52.0); HEMOGLOBIN 11.4 g/dl (14.0-17.9); LYMPHOCYTES # (AUTO) 1.6 X10'3 (1.1-4.8); LYMPHOCYTES % (AUTO) 11.7 % (21-51); MEAN CORPUSCULAR HEMOGLOBIN 34.5 PG (27.0-31.0); MEAN CORPUSCULAR HGB CONC 34.1 g/dL (33.0-36.5); MEAN CORPUSCULAR VOLUME 101.1 FL (78-98); MEAN PLATELET VOLUME 6.6 FL (7.4-10.4); MONOCYTES % (AUTO) 15.1 % (2-12); NEUTROPHILS # (AUTO) 9.6 X10'3 (1.8-7.7); NEUTROPHILS % (AUTO) 72.2 % (42-75); PLATELET COUNT 100 X10'3 (140-440); RED BLOOD COUNT 3.29 X10'6 (4.70-6.10); RED CELL DISTRIBUTION WIDTH 19.1 % (11.5-14.5); WHITE BLOOD COUNT 13.3 X10'3 (4.5-11.0)
[2021-03-10] MEDS: heparin, porcine 5000 units/ml vial SQ SCH ×2 (08:00→20:00)
[2021-03-10] MEDS: K and/or MAG REPLACEMENT MC SCH ×2 (08:00→20:00)
[2021-03-10] MEDS: CefTRIAXone 2gm/D5W 50ml BAG 50 ML IV SCH (09:05)
[2021-03-10 09:06] LABS: PLATELET ESTIMATE DECREASED
[2021-03-10 09:07] LABS: ANISOCYTOSIS 2+; BURR CELLS FEW; ELLIPTOCYTES 1+; POLYCHROMASIA 1+; TEAR DROP CELLS FEW
[2021-03-10] MEDS: insulin Lispro (HumaLOG) vial - multi-dose SQ SCH ×3 (09:07→19:04)
[2021-03-10 09:08] LABS: SCHISTOCYTES FEW
[2021-03-10] MEDS: spironolactone 25 MG tablet PO SCH (09:13)
[2021-03-10 09:21] VITALS: BP 160/83
[2021-03-10 09:31] LABS: ROULEAUX 1+
[2021-03-10 10:00] VITALS: BP 158/78
[2021-03-10] MEDS ORDERED: Lactulose Enema **for rectal use only RC ONE ×2 (10:15)
--- NOTE | 2021-03-10 11:15 | NUR ---
Per angio they are not able to do paracentesis today due to the patients altered level of conciousness and he has no one to consent for him on his behalf.
--- NOTE | 2021-03-10 13:27 | NUR ---
PAGER ID: [phone] MESSAGE: [id number], Eva garcia can't do para until his LOC is better. Do you want us to give the heparin? platelets today were 100. Krystal [phone]
[2021-03-10] MEDS: normal saline 1000ml 1,000 ML IV SCH ×2 (13:32→17:11)
[2021-03-10 18:00] VITALS: BP 164/82
--- NOTE | 2021-03-10 18:18 | NUR ---
Problems reprioritized. Patient report given, questions answered & plan of care reviewed with Anette ROSALES.
--- NOTE | 2021-03-10 18:45 | NUR ---
Patient in room ORTHO 4011. I have received report from BOBBY Rice and had the opportunity to ask questions and assume patient care.
[2021-03-10] MEDS: lactobacillus rhamnosus 10,000 MMU CELLS/CAPSULE PO SCH (19:59)
[2021-03-10] MEDS: insulin glargine (Lantus) pen - multi-dose SQ SCH (21:31)
[2021-03-10 22:00] VITALS: BP 170/83
[2021-03-11] MEDS: lactulose 20gm/30ml cup PO SCH ×4 (02:07→19:46)
[2021-03-11] MEDS: albuterol 2.5 MG/3 ML nebule NEB SCH ×4 (02:55→19:58)
[2021-03-11 06:00] VITALS: BP 127/69
--- NOTE | 2021-03-11 06:27 | NUR ---
Patient in room ORTHO 4011. I have received report from BOBBY Cheema and had the opportunity to ask questions and assume patient care.
--- NOTE | 2021-03-11 06:48 | NUR ---
Problems reprioritized. Patient report given, questions answered & plan of care reviewed with BOBBY Harmon.
[2021-03-11] MEDS: heparin, porcine 5000 units/ml vial SQ SCH ×2 (08:00→20:00)
[2021-03-11] MEDS: K and/or MAG REPLACEMENT MC SCH ×2 (08:00→19:47)
[2021-03-11] MEDS: multivitamins, therapeutics tablet PO SCH (08:18)
[2021-03-11] MEDS: furosemide 10 MG/1 ML 10ml inj IV SCH ×2 (08:19→10:50)
[2021-03-11] MEDS: lactobacillus rhamnosus 10,000 MMU CELLS/CAPSULE PO SCH ×2 (08:19→19:46)
[2021-03-11] MEDS: ferrous sulfate 325mg tablet PO SCH (08:19)
[2021-03-11] MEDS: spironolactone 25 MG tablet PO SCH (08:21)
[2021-03-11] MEDS: metroNIDAZOLE-Flagyl 500mg/NS 100 ML IV SCH (08:21)
[2021-03-11] MEDS: CefTRIAXone 2gm/D5W 50ml BAG 50 ML IV SCH (08:22)
[2021-03-11 08:58] LABS: ALANINE AMINOTRANSFERASE 142 U/L (12-78); ALBUMIN 1.7 G/DL (3.4-5.0); ALBUMIN/GLOBULIN RATIO 0.5 (1.1-1.5); ALKALINE PHOSPHATASE 129 IU/L (46-116); ANION GAP 8 (8-16); ASPARTATE AMINO TRANSFERASE 194 U/L (10-37); BILIRUBIN,TOTAL 2.9 MG/DL (0.1-1.0); BLOOD UREA NITROGEN 24 MG/DL (7-18); CALCIUM 7.7 MG/DL (8.5-10.1); CHLORIDE 109 MMOL/L (99-107); CREATININE 0.96 MG/DL (0.60-1.10); GLUCOSE 152 MG/DL (70-104); MAGNESIUM 1.8 MG/DL (1.5-2.4); SODIUM 144 MMOL/L (135-145); TOTAL CARBON DIOXIDE 26.7 MMOL/L (24-32); TOTAL PROTEIN 5.4 G/DL (6.4-8.2); eGFR 79 ML/MIN
[2021-03-11 09:00] LABS: POTASSIUM 3.1 MMOL/L (3.5-5.1)
--- NOTE | 2021-03-11 09:31 | NUR ---
New orders for ammonia per Silva
[2021-03-11 10:00] VITALS: BP 156/78
[2021-03-11 10:32] LABS: BASOPHILS # (AUTO) 0.1 X10'3 (0-0.2); BASOPHILS % (AUTO) 0.4 % (0-1); EOSINOPHILS # (AUTO) 0.3 X10'3 (0-0.9); EOSINOPHILS % (AUTO) 2.1 % (0-6); HEMATOCRIT 36.2 % (42.0-52.0); HEMOGLOBIN 12.4 g/dl (14.0-17.9); LYMPHOCYTES # (AUTO) 1.9 X10'3 (1.1-4.8); LYMPHOCYTES % (AUTO) 12.4 % (21-51); MEAN CORPUSCULAR HEMOGLOBIN 34.3 PG (27.0-31.0); MEAN CORPUSCULAR HGB CONC 34.3 g/dL (33.0-36.5); MEAN CORPUSCULAR VOLUME 99.9 FL (78-98); MEAN PLATELET VOLUME 6.9 FL (7.4-10.4); MONOCYTES # (AUTO) 2.6 X10'3 (0-0.9); MONOCYTES % (AUTO) 16.9 % (2-12); NEUTROPHILS # (AUTO) 10.5 X10'3 (1.8-7.7); NEUTROPHILS % (AUTO) 68.2 % (42-75); PLATELET COUNT 103 X10'3 (140-440); RED BLOOD COUNT 3.62 X10'6 (4.70-6.10); RED CELL DISTRIBUTION WIDTH 19.4 % (11.5-14.5); WHITE BLOOD COUNT 15.4 X10'3 (4.5-11.0)
--- NOTE | 2021-03-11 10:44 | NUR ---
PAGER ID: [phone] MESSAGE: [id number]: Mark Velasquez: Ammonia is 17, PLT is 103, would you like me to give heparin dose? -anastasiia [phone]
[2021-03-11] MEDS: potassium Cl 20 mEq SR tablet PO PRN ×3 (10:55→20:59)
[2021-03-11] MEDS: insulin Lispro (HumaLOG) vial - multi-dose SQ SCH ×2 (10:58→19:41)
[2021-03-11 11:24] LABS: TOTAL CELLS COUNTED 100
[2021-03-11 11:25] LABS: ANISOCYTOSIS 2+; BURR CELLS 1+; ELLIPTOCYTES 1+; PLATELET ESTIMATE DECREASED; POLYCHROMASIA 1+
[2021-03-11 18:00] VITALS: BP 168/97
--- NOTE | 2021-03-11 18:16 | NUR ---
Spoke to pts MEJIA, which is is son, Ludwin. Gave permission to give information to pts ex-, Tanna. Updated her on the patient. She's wanted to find placement for Mr. Velasquez as she says he has been declining cognitively. Will reach out to social media marketing specialist regarding the issue. Tanna stated that pts family and kids dont want to have anything to do with pt.
--- NOTE | 2021-03-11 18:18 | NUR ---
Problems reprioritized. Patient report given, questions answered & plan of care reviewed with BOBBY Cheema.
--- NOTE | 2021-03-11 18:46 | NUR ---
Patient in room ORTHO 4011. I have received report from BOBBY Harmon and had the opportunity to ask questions and assume patient care.
[2021-03-11] MEDS: furosemide 20MG tablet PO SCH (19:46)
[2021-03-11] MEDS: metroNIDAZOLE 500mg tablet PO SCH (19:46)
[2021-03-11] MEDS: insulin glargine (Lantus) pen - multi-dose SQ SCH (21:08)
[2021-03-11 22:00] VITALS: BP 143/80
[2021-03-12] MEDS: lactulose 20gm/30ml cup PO SCH ×4 (02:24→20:00)
[2021-03-12] MEDS: albuterol 2.5 MG/3 ML nebule NEB SCH ×4 (03:17→21:43)
[2021-03-12] MEDS: normal saline 1000ml 1,000 ML IV SCH (05:32)
--- NOTE | 2021-03-12 06:26 | NUR ---
Problems reprioritized. Patient report given, questions answered & plan of care reviewed with BOBBY Munoz.
[2021-03-12 07:00] VITALS: BP 157/88
[2021-03-12] MEDS: spironolactone 25 MG tablet PO SCH (07:45)
[2021-03-12] MEDS: multivitamins, therapeutics tablet PO SCH (07:46)
[2021-03-12] MEDS: lactobacillus rhamnosus 10,000 MMU CELLS/CAPSULE PO SCH ×2 (07:46→20:43)
[2021-03-12] MEDS: metroNIDAZOLE 500mg tablet PO SCH ×2 (07:46→20:42)
[2021-03-12] MEDS: ferrous sulfate 325mg tablet PO SCH (07:46)
[2021-03-12] MEDS: furosemide 20MG tablet PO SCH ×2 (07:46→20:43)
[2021-03-12 07:59] LABS: BASOPHILS # (AUTO) 0.1 X10'3 (0-0.2); BASOPHILS % (AUTO) 0.7 % (0-1); EOSINOPHILS # (AUTO) 0.5 X10'3 (0-0.9); EOSINOPHILS % (AUTO) 4.2 % (0-6); HEMATOCRIT 35.8 % (42.0-52.0); HEMOGLOBIN 12.3 g/dl (14.0-17.9); LYMPHOCYTES # (AUTO) 1.5 X10'3 (1.1-4.8); LYMPHOCYTES % (AUTO) 12.8 % (21-51); MEAN CORPUSCULAR HEMOGLOBIN 34.1 PG (27.0-31.0); MEAN CORPUSCULAR HGB CONC 34.4 g/dL (33.0-36.5); MEAN CORPUSCULAR VOLUME 99.2 FL (78-98); MEAN PLATELET VOLUME 6.6 FL (7.4-10.4); MONOCYTES # (AUTO) 1.9 X10'3 (0-0.9); MONOCYTES % (AUTO) 16.3 % (2-12); NEUTROPHILS # (AUTO) 7.8 X10'3 (1.8-7.7); PLATELET COUNT 114 X10'3 (140-440); WHITE BLOOD COUNT 11.8 X10'3 (4.5-11.0)
[2021-03-12] MEDS: K and/or MAG REPLACEMENT MC SCH ×3 (08:00→20:00)
[2021-03-12] MEDS: CefTRIAXone 2gm/D5W 50ml BAG 50 ML IV SCH (08:00)
[2021-03-12] MEDS: heparin, porcine 5000 units/ml vial SQ SCH ×2 (08:00→20:00)
[2021-03-12 08:14] LABS: ALANINE AMINOTRANSFERASE 137 U/L (12-78); ALBUMIN 1.9 G/DL (3.4-5.0); ALBUMIN/GLOBULIN RATIO 0.5 (1.1-1.5); ALKALINE PHOSPHATASE 159 IU/L (46-116); ANION GAP 11 (8-16); ASPARTATE AMINO TRANSFERASE 144 U/L (10-37); BILIRUBIN,TOTAL 3.3 MG/DL (0.1-1.0); BLOOD UREA NITROGEN 23 MG/DL (7-18); BUN/CREATININE RATIO 21.7 (5.4-32.0); CHLORIDE 103 MMOL/L (99-107); CREATININE 1.06 MG/DL (0.60-1.10); GLUCOSE 186 MG/DL (70-104); MAGNESIUM 1.5 MG/DL (1.5-2.4); POTASSIUM 3.1 MMOL/L (3.5-5.1); SODIUM 142 MMOL/L (135-145); TOTAL CARBON DIOXIDE 27.6 MMOL/L (24-32); TOTAL PROTEIN 5.9 G/DL (6.4-8.2); eGFR 71 ML/MIN
[2021-03-12 10:00] VITALS: BP 173/82
[2021-03-12] MEDS ORDERED: albumin (human) 25% 100 ML IV solution IV ONE (11:10)
[2021-03-12] MEDS: metolazone 2.5mg tablet PO SCH (13:21)
[2021-03-12] MEDS: insulin Lispro (HumaLOG) vial - multi-dose SQ SCH ×2 (14:36→19:04)
[2021-03-12] MEDS ORDERED: magnesium 4gm in 100ml NS 100 ML IV PRN (14:40)
[2021-03-12] MEDS ORDERED: potassium Cl 40MEQ/1/2NS 520ml 520 ML IV PRN (14:40)
[2021-03-12] MEDS ORDERED: potassium Cl 20 mEq SR tablet PO PRN (14:40)
[2021-03-12] MEDS: potassium Cl 20 mEq SR tablet PO PRN ×2 (14:48→20:43)
[2021-03-12] MEDS ORDERED: CefTRIAXone 1000mg IM Kit (w/lidocaine diluent) IM SCH (15:00)
--- NOTE | 2021-03-12 15:57 | NUR ---
PAGER ID: [phone] MESSAGE: [phone]: Eva - Was able to get PIV placed, would you still like to give Nataliia RYAN -anastasiia [phone]
--- NOTE | 2021-03-12 16:09 | NUR ---
Per Whit, D/C rocephin IM, place rocephin IV 1mg daily
[2021-03-12] MEDS ORDERED: CefTRIAXone/D5W-Rocephin 1gm 50 ML IV ONE (16:10)
--- NOTE | 2021-03-12 16:42 | NUR ---
PAGER ID: [phone] MESSAGE: [id number]: Snow - Pt line blew, may I reorder the Rocephin IM? -anastasiia [phone]
[2021-03-12] MEDS ORDERED: CefTRIAXone 1000mg IM Kit (w/lidocaine diluent) IM ONE (17:00)
--- NOTE | 2021-03-12 17:48 | NUR ---
PAGER ID: [phone] MESSAGE: [id number]: Snow - Pt had output of 800cc, input of 2kcc, bladder scan of 200cc, would you like pt on fluid restriction? Also, may I place pt on CC diet? -anastasiia [phone]
[2021-03-12 18:00] VITALS: BP 170/90
--- NOTE | 2021-03-12 18:00 | NUR ---
Per Nepo, place pt on 2L fluid restriction and place pt on CC diet
--- NOTE | 2021-03-12 18:18 | NUR ---
Problems reprioritized. Patient report given, questions answered & plan of care reviewed with BOBBY Vaca.
--- NOTE | 2021-03-12 18:36 | NUR ---
Patient in room ORTHO 4011. I have received report from Eden ROSALES and had the opportunity to ask questions and assume patient care.
[2021-03-12] MEDS: insulin glargine (Lantus) pen - multi-dose SQ SCH (21:48)
[2021-03-12 22:00] VITALS: BP 159/90
--- NOTE | 2021-03-12 23:45 | NUR ---
Patient projectile vomited coffee ground emesis. No IV accesses due to hard stick, day shift MD aware. Called night time MD and received many new orders.
[2021-03-12] MEDS ORDERED: octreotide inj. 1,250 MCG in normal saline 250ml IV soln 243.75 ML IV SCH (23:50)
[2021-03-13] MEDS: ondansetron 4mg rapidly disintigrating tab PO PRN (00:14)
[2021-03-13] MEDS ORDERED: pantoprazole 40MG/NS 100ML BAG 100 ML IV SCH ×2 (01:00)
[2021-03-13 01:16] LABS: BASOPHILS % (AUTO) 0.3 % (0-1); EOSINOPHILS # (AUTO) 0.3 X10'3 (0-0.9); EOSINOPHILS % (AUTO) 2.2 % (0-6); HEMATOCRIT 37.9 % (42.0-52.0); HEMOGLOBIN 13.1 g/dl (14.0-17.9); LYMPHOCYTES # (AUTO) 1.6 X10'3 (1.1-4.8); MEAN CORPUSCULAR HEMOGLOBIN 34.7 PG (27.0-31.0); MEAN CORPUSCULAR HGB CONC 34.6 g/dL (33.0-36.5); MEAN CORPUSCULAR VOLUME 100.2 FL (78-98); MEAN PLATELET VOLUME 7.2 FL (7.4-10.4); MONOCYTES # (AUTO) 1.7 X10'3 (0-0.9); MONOCYTES % (AUTO) 12.8 % (2-12); NEUTROPHILS # (AUTO) 9.8 X10'3 (1.8-7.7); NEUTROPHILS % (AUTO) 72.7 % (42-75); PLATELET COUNT 142 X10'3 (140-440); RED BLOOD COUNT 3.78 X10'6 (4.70-6.10); RED CELL DISTRIBUTION WIDTH 19.3 % (11.5-14.5); WHITE BLOOD COUNT 13.5 X10'3 (4.5-11.0)
[2021-03-13] MEDS: normal saline 1000ml 1,000 ML IV SCH ×5 (01:32→21:32)
--- NOTE | 2021-03-13 02:00 | NUR ---
Took patient down to ER to receive a central line placed.
[2021-03-13] MEDS: albuterol 2.5 MG/3 ML nebule NEB SCH ×4 (02:36→21:52)
[2021-03-13] MEDS ORDERED: albumin (human) 25% 100 ML IV solution IV ONE (02:45)
[2021-03-13] MEDS: octreotide inj. 500 MCG in normal saline 100ml IV soln 97.5 ML IV SCH ×2 (03:09→19:55)
[2021-03-13] MEDS: potassium Cl 20 mEq SR tablet PO PRN (04:05)
[2021-03-13] MEDS: lactulose 20gm/30ml cup PO SCH ×5 (04:06→20:00)
--- NOTE | 2021-03-13 05:54 | NUR ---
Patient pulled out central line, tip intact verified by two nurses. Pressure dressing applied. MD called and aware.
--- NOTE | 2021-03-13 06:41 | NUR ---
Patient in room ORTHO 4011. I have received report from Nola ROSALES and had the opportunity to ask questions and assume patient care.
--- NOTE | 2021-03-13 06:41 | NUR ---
Problems reprioritized. Patient report given, questions answered & plan of care reviewed with Mae ROSALES.
[2021-03-13 06:43] LABS: ANISOCYTOSIS 2+; BURR CELLS FEW; ELLIPTOCYTES FEW; PLATELET ESTIMATE NORMAL; POLYCHROMASIA FEW; TEAR DROP CELLS 1+
[2021-03-13 07:00] VITALS: BP 161/78
[2021-03-13 07:15] LABS: BASOPHILS % (AUTO) 0.4 % (0-1); EOSINOPHILS # (AUTO) 0.3 X10'3 (0-0.9); EOSINOPHILS % (AUTO) 2.4 % (0-6); HEMATOCRIT 31.2 % (42.0-52.0); HEMOGLOBIN 10.6 g/dl (14.0-17.9); LYMPHOCYTES # (AUTO) 1.7 X10'3 (1.1-4.8); LYMPHOCYTES % (AUTO) 13.6 % (21-51); MEAN CORPUSCULAR HEMOGLOBIN 34.6 PG (27.0-31.0); MEAN CORPUSCULAR HGB CONC 34.1 g/dL (33.0-36.5); MEAN CORPUSCULAR VOLUME 101.4 FL (78-98); MEAN PLATELET VOLUME 7.3 FL (7.4-10.4); MONOCYTES # (AUTO) 1.8 X10'3 (0-0.9); MONOCYTES % (AUTO) 14.7 % (2-12); NEUTROPHILS # (AUTO) 8.5 X10'3 (1.8-7.7); NEUTROPHILS % (AUTO) 68.9 % (42-75); PLATELET COUNT 138 X10'3 (140-440); RED BLOOD COUNT 3.07 X10'6 (4.70-6.10); RED CELL DISTRIBUTION WIDTH 19.2 % (11.5-14.5); WHITE BLOOD COUNT 12.3 X10'3 (4.5-11.0)
[2021-03-13 07:25] LABS: ALANINE AMINOTRANSFERASE 95 U/L (12-78); ALBUMIN 2.5 G/DL (3.4-5.0); ALBUMIN/GLOBULIN RATIO 0.8 (1.1-1.5); ALKALINE PHOSPHATASE 118 IU/L (46-116); ANION GAP 11 (8-16); ASPARTATE AMINO TRANSFERASE 75 U/L (10-37); BILIRUBIN,TOTAL 3.3 MG/DL (0.1-1.0); BLOOD UREA NITROGEN 31 MG/DL (7-18); BUN/CREATININE RATIO 28.7 (5.4-32.0); CALCIUM 7.9 MG/DL (8.5-10.1); CHLORIDE 101 MMOL/L (99-107); CREATININE 1.08 MG/DL (0.60-1.10); GLUCOSE 191 MG/DL (70-104); MAGNESIUM 1.5 MG/DL (1.5-2.4); POTASSIUM 3.5 MMOL/L (3.5-5.1); SODIUM 139 MMOL/L (135-145); TOTAL CARBON DIOXIDE 27.2 MMOL/L (24-32); TOTAL PROTEIN 5.6 G/DL (6.4-8.2); eGFR 69 ML/MIN
[2021-03-13] MEDS: K and/or MAG REPLACEMENT MC SCH ×4 (08:00→20:00)
[2021-03-13] MEDS ORDERED: CefTRIAXone/D5W-Rocephin 1gm 50 ML IV SCH (08:00)
[2021-03-13] MEDS: pantoprazole 40mg Tablet.DR PO SCH ×2 (09:42→19:26)
[2021-03-13] MEDS: metroNIDAZOLE 500mg tablet PO SCH ×2 (09:43→19:26)
[2021-03-13] MEDS: furosemide 20MG tablet PO SCH ×2 (09:43→19:26)
[2021-03-13] MEDS: multivitamins, therapeutics tablet PO SCH (09:43)
[2021-03-13] MEDS: metolazone 2.5mg tablet PO SCH (09:44)
[2021-03-13] MEDS: ferrous sulfate 325mg tablet PO SCH (09:44)
[2021-03-13] MEDS: spironolactone 25 MG tablet PO SCH (09:44)
[2021-03-13] MEDS: lactobacillus rhamnosus 10,000 MMU CELLS/CAPSULE PO SCH ×2 (09:47→19:26)
[2021-03-13] MEDS: insulin Lispro (HumaLOG) vial - multi-dose SQ SCH ×3 (09:54→19:26)
--- NOTE | 2021-03-13 10:56 | NUR ---
Reassessment: Pt remains ALOC AOx1 w/ PO remaining poor 0-25% carb controlled/pureed/thin diet w/ feeder per FLIGHT TEST MECHANIC recs past 3 days not meeting needs. Possible coffee ground emesis this AM started on protonix per MD note. LBM 03/12 receiving routine lactulose though has refused past 3 doses per EMR. Poor nutrition status day 5 given initial 2 days of NPO this admit. IF poor PO persists w/ ALOC consider alternative nutrition to meet pt needs IF within patients plan of care. Rec: 1. continue carb controlled/pureed/thin diet w/ feeder per FLIGHT TEST MECHANIC/MD recs 2. Consider Ensure Enlive TIDWM once PO acceptance improves 3. routine bowel care; lactulose Q6H per MD w/ ammonia 56 on admit 4. thiamin, folic, MVI for etoh 5. scaled wt this admit; subsequent weekly wts 6. DM ed once pt appropriate hx T2DM A1C 8.3; deferred at this time Addendum: 03/13/21 at [address] Amended: Links added. Addendum: 03/13/21 at [address] Rec: 1. continue carb controlled/pureed/thin diet w/ feeder per FLIGHT TEST MECHANIC/MD recs 2. Consider Ensure Enlive TIDWM once PO acceptance improves 3. routine bowel care; lactulose Q6H per MD w/ ammonia 56 on admit 4. thiamin, folic, MVI for etoh 5. scaled wt this admit; subsequent weekly wts 6. IF poor PO persists w/ ALOC; consider EN via NG to meet nutrition needs IF within patient's plan of care
[2021-03-13] MEDS: CefTRIAXone 1000mg IM Kit (w/lidocaine diluent) IM SCH (11:06)
[2021-03-13 18:00] VITALS: BP 166/83
--- NOTE | 2021-03-13 18:38 | NUR ---
Problems reprioritized. Patient report given, questions answered & plan of care reviewed with Latonya ROSALES.
--- NOTE | 2021-03-13 18:44 | NUR ---
Patient in room ORTHO 4020. I have received report from LEO ROSALES and had the opportunity to ask questions and assume patient care.
[2021-03-13] MEDS: insulin glargine (Lantus) pen - multi-dose SQ SCH (21:55)
[2021-03-13 22:00] VITALS: BP 157/83
[2021-03-14] MEDS: lactulose 20gm/30ml cup PO SCH ×4 (02:02→20:00)
[2021-03-14] MEDS: albuterol 2.5 MG/3 ML nebule NEB SCH ×4 (02:28→20:05)
[2021-03-14] MEDS: normal saline 1000ml 1,000 ML IV SCH ×3 (05:55→17:32)
[2021-03-14 06:00] VITALS: BP 143/84
[2021-03-14 06:35] LABS: MAGNESIUM 1.4 MG/DL (1.5-2.4)
--- NOTE | 2021-03-14 06:55 | NUR ---
Patient in room ORTHO 4020B. I have received report from BOBBY MONGE and had the opportunity to ask questions and assume patient care.
--- NOTE | 2021-03-14 06:57 | NUR ---
Problems reprioritized. Patient report given, questions answered & plan of care reviewed with CLEO ROSALES.
[2021-03-14] MEDS: K and/or MAG REPLACEMENT MC SCH ×4 (08:00→20:00)
[2021-03-14] MEDS: metolazone 2.5mg tablet PO SCH (08:41)
[2021-03-14] MEDS: ferrous sulfate 325mg tablet PO SCH (08:41)
[2021-03-14] MEDS: furosemide 20MG tablet PO SCH ×2 (08:42→20:59)
[2021-03-14] MEDS: pantoprazole 40mg Tablet.DR PO SCH ×2 (08:42→20:59)
[2021-03-14] MEDS: metroNIDAZOLE 500mg tablet PO SCH ×2 (08:42→20:59)
[2021-03-14] MEDS: multivitamins, therapeutics tablet PO SCH (08:42)
[2021-03-14] MEDS: lactobacillus rhamnosus 10,000 MMU CELLS/CAPSULE PO SCH ×2 (08:42→20:59)
[2021-03-14] MEDS: magnesium Cl slow-release 64mg tablet PO PRN ×2 (08:43→13:18)
[2021-03-14] MEDS: spironolactone 25 MG tablet PO SCH (08:43)
[2021-03-14] MEDS: CefTRIAXone 1000mg IM Kit (w/lidocaine diluent) IM SCH (08:44)
[2021-03-14] MEDS: insulin Lispro (HumaLOG) vial - multi-dose SQ SCH ×3 (09:32→18:49)
[2021-03-14] MEDS: metoprolol tartrate 12.5mg (1/2 tablet) PO SCH ×2 (09:35→21:03)
[2021-03-14 09:37] LABS: ALANINE AMINOTRANSFERASE 85 U/L (12-78); ALBUMIN 2.3 G/DL (3.4-5.0); ALBUMIN/GLOBULIN RATIO 0.7 (1.1-1.5); ALKALINE PHOSPHATASE 110 IU/L (46-116); ANION GAP 6 (8-16); ASPARTATE AMINO TRANSFERASE 70 U/L (10-37); BLOOD UREA NITROGEN 30 MG/DL (7-18); BUN/CREATININE RATIO 27.3 (5.4-32.0); CALCIUM 8.7 MG/DL (8.5-10.1); CHLORIDE 98 MMOL/L (99-107); GLUCOSE 176 MG/DL (70-104); POTASSIUM 3.1 MMOL/L (3.5-5.1); SODIUM 135 MMOL/L (135-145); TOTAL CARBON DIOXIDE 30.6 MMOL/L (24-32); TOTAL PROTEIN 5.6 G/DL (6.4-8.2); eGFR 68 ML/MIN
[2021-03-14 09:39] LABS: BASOPHILS # (AUTO) 0.1 X10'3 (0-0.2); BASOPHILS % (AUTO) 0.4 % (0-1); EOSINOPHILS # (AUTO) 0.4 X10'3 (0-0.9); EOSINOPHILS % (AUTO) 2.9 % (0-6); HEMATOCRIT 33.7 % (42.0-52.0); HEMOGLOBIN 11.4 g/dl (14.0-17.9); LYMPHOCYTES # (AUTO) 1.9 X10'3 (1.1-4.8); MEAN CORPUSCULAR HEMOGLOBIN 34.7 PG (27.0-31.0); MEAN CORPUSCULAR HGB CONC 33.9 g/dL (33.0-36.5); MEAN CORPUSCULAR VOLUME 102.4 FL (78-98); MEAN PLATELET VOLUME 7.5 FL (7.4-10.4); MONOCYTES # (AUTO) 2.1 X10'3 (0-0.9); MONOCYTES % (AUTO) 14.7 % (2-12); NEUTROPHILS # (AUTO) 9.8 X10'3 (1.8-7.7); PLATELET COUNT 170 X10'3 (140-440); RED BLOOD COUNT 3.29 X10'6 (4.70-6.10); RED CELL DISTRIBUTION WIDTH 19.2 % (11.5-14.5); WHITE BLOOD COUNT 14.2 X10'3 (4.5-11.0)
[2021-03-14 09:44] LABS: BILIRUBIN,TOTAL 3.6 MG/DL (0.1-1.0)
[2021-03-14 10:00] VITALS: BP 147/81
[2021-03-14] MEDS: potassium Cl 20 mEq SR tablet PO PRN ×3 (13:17→21:19)
[2021-03-14 14:10] LABS: TOTAL CELLS COUNTED 100
[2021-03-14 14:13] LABS: SMUDGE CELLS 1+
[2021-03-14 14:15] LABS: PLATELET ESTIMATE NORMAL; SCHISTOCYTES FEW
[2021-03-14 14:16] LABS: BURR CELLS FEW; ELLIPTOCYTES 1+; POLYCHROMASIA FEW
[2021-03-14] MEDS: octreotide inj. 500 MCG in normal saline 100ml IV soln 97.5 ML IV SCH (15:55)
--- NOTE | 2021-03-14 17:17 | NUR ---
Page Sent PAGER ID: [phone] MESSAGE: CLEO [phone] RE: ELLE MARTÍNEZ [phone] CAN WE D/C PT'S SITTER? THANKS!
[2021-03-14 18:00] VITALS: BP 128/73
--- NOTE | 2021-03-14 18:36 | NUR ---
Problems reprioritized. Patient report given, questions answered & plan of care reviewed with BOBBY KENT.
[2021-03-14] MEDS: insulin glargine (Lantus) pen - multi-dose SQ SCH (20:58)
[2021-03-14 22:00] VITALS: BP 138/71
[2021-03-14] MEDS: ondansetron 4mg rapidly disintigrating tab PO PRN (23:07)
[2021-03-15] MEDS: normal saline 1000ml 1,000 ML IV SCH (01:55)
[2021-03-15] MEDS: albuterol 2.5 MG/3 ML nebule NEB SCH ×2 (02:15→08:27)
[2021-03-15] MEDS: lactulose 20gm/30ml cup PO SCH ×2 (02:27→08:00)
[2021-03-15 06:00] VITALS: BP 129/67
--- NOTE | 2021-03-15 06:42 | NUR ---
Patient in room ORTHO 4020B. I have received report from BOBBY KENT and had the opportunity to ask questions and assume patient care.
[2021-03-15 07:12] LABS: BASOPHILS # (AUTO) 0.1 X10'3 (0-0.2); BASOPHILS % (AUTO) 0.6 % (0-1); EOSINOPHILS # (AUTO) 0.5 X10'3 (0-0.9); EOSINOPHILS % (AUTO) 3.4 % (0-6); HEMATOCRIT 35.4 % (42.0-52.0); HEMOGLOBIN 12.4 g/dl (14.0-17.9); LYMPHOCYTES # (AUTO) 2.2 X10'3 (1.1-4.8); LYMPHOCYTES % (AUTO) 15.3 % (21-51); MEAN CORPUSCULAR HEMOGLOBIN 35.1 PG (27.0-31.0); MEAN CORPUSCULAR VOLUME 100.2 FL (78-98); MEAN PLATELET VOLUME 7.2 FL (7.4-10.4); MONOCYTES % (AUTO) 14.9 % (2-12); NEUTROPHILS # (AUTO) 9.5 X10'3 (1.8-7.7); NEUTROPHILS % (AUTO) 65.8 % (42-75); PLATELET COUNT 210 X10'3 (140-440); RED BLOOD COUNT 3.53 X10'6 (4.70-6.10); RED CELL DISTRIBUTION WIDTH 19.4 % (11.5-14.5); WHITE BLOOD COUNT 14.4 X10'3 (4.5-11.0)
[2021-03-15 07:33] LABS: ALANINE AMINOTRANSFERASE 76 U/L (12-78); ALBUMIN 2.3 G/DL (3.4-5.0); ALBUMIN/GLOBULIN RATIO 0.6 (1.1-1.5); ALKALINE PHOSPHATASE 123 IU/L (46-116); ANION GAP 8 (8-16); ASPARTATE AMINO TRANSFERASE 66 U/L (10-37); BILIRUBIN,TOTAL 3.5 MG/DL (0.1-1.0); BLOOD UREA NITROGEN 34 MG/DL (7-18); CALCIUM 8.7 MG/DL (8.5-10.1); CHLORIDE 98 MMOL/L (99-107); CREATININE 1.36 MG/DL (0.60-1.10); GLUCOSE 166 MG/DL (70-104); MAGNESIUM 1.6 MG/DL (1.5-2.4); POTASSIUM 3.4 MMOL/L (3.5-5.1); SODIUM 137 MMOL/L (135-145); TOTAL CARBON DIOXIDE 30.6 MMOL/L (24-32); TOTAL PROTEIN 5.9 G/DL (6.4-8.2); eGFR 53 ML/MIN
[2021-03-15] MEDS: insulin Lispro (HumaLOG) vial - multi-dose SQ SCH (08:58)
[2021-03-15] MEDS: metroNIDAZOLE 500mg tablet PO SCH (09:00)
[2021-03-15] MEDS: metolazone 2.5mg tablet PO SCH (09:00)
[2021-03-15] MEDS: spironolactone 25 MG tablet PO SCH (09:01)
[2021-03-15 09:02] VITALS: BP_SYST 129
[2021-03-15] MEDS: furosemide 20MG tablet PO SCH (09:02)
[2021-03-15] MEDS: multivitamins, therapeutics tablet PO SCH (09:02)
[2021-03-15] MEDS: ferrous sulfate 325mg tablet PO SCH (09:02)
[2021-03-15] MEDS: pantoprazole 40mg Tablet.DR PO SCH (09:02)
[2021-03-15] MEDS: metoprolol tartrate 12.5mg (1/2 tablet) PO SCH (09:02)
[2021-03-15] MEDS: lactobacillus rhamnosus 10,000 MMU CELLS/CAPSULE PO SCH (09:02)
[2021-03-15] MEDS: CefTRIAXone 1000mg IM Kit (w/lidocaine diluent) IM SCH (09:06)
[2021-03-15] MEDS ORDERED: PANT40TA54 PO (11:54)
[2021-03-15] MEDS ORDERED: LACT10SO32 PO (11:54)
[2021-03-15] MEDS ORDERED: LEVO500T89 PO (11:54)
[2021-03-15] MEDS ORDERED: LOP12.5T PO (11:54)
--- NOTE | 2021-03-15 14:36 | NUR ---
Page Sent PAGER ID: [phone] MESSAGE: CLEO [phone] RE: ELLE MARTÍNEZ [phone] PER PHYSICAL THERAPY, PT IS UNSAFE TO GO HOME. THEY SAID WOULD BENEFIT FROM MORE PHYSICAL THERAPY.
--- NOTE | 2021-03-15 14:53 | NUR ---
Page Sent PAGER ID: [phone] MESSAGE: CLEO [phone] RE: ELLE MARTÍNEZ [id number] PT IS DECIDING TO LEAVE A
--- NOTE | 2021-03-15 15:44 | NUR ---
PT LEFT AMA. PT BELONGINGS GATHERED AND SENT WITH PT. PT LEFT FOR HOME IN PRIVATE VEHICLE ACCOMPANIED BY FAMILY MEMBER. PT LEFT FLOOR AT 1515.
[2021-03-16 15:58] LABS: MONOCYTES # (AUTO) 2.2 X10'3 (0-0.9)
== END 2021-03-15 15:15 | disposition left against medical advice (07) | DRG 720 ==
LOC: ER 17:47 → ED HOLD 22:21 → UNDOADMIN 23:40 → ORTHO 4S 03-09 07:45
PROVIDERS: ADMIT Internal Medicine; ATTEND Family Medicine
PROC: 05HY33Z Insertion of Infusion Device into Upper Vein, Percutaneous Approach (ICD-10-PCS; principal; 2021-03-13)
PROC: B54MZZA Ultrasonography of Right Upper Extremity Veins, Guidance (ICD-10-PCS; 2021-03-13)
DX: A41.59 Other Gram-negative sepsis (principal); G93.41 Metabolic encephalopathy; D61.818 Other pancytopenia; J18.9 Pneumonia, unspecified organism; R18.8 Other ascites; K72.90 Hepatic failure, unspecified without coma; K74.60 Unspecified cirrhosis of liver; E11.9 Type 2 diabetes mellitus without complications; F15.10 Other stimulant abuse, uncomplicated; Z60.2 Problems related to living alone; Z20.822 Contact with and (suspected) exposure to COVID-19; Z53.29 Procedure and treatment not carried out because of patient's decision for other reasons; N39.0 Urinary tract infection, site not specified; F17.200 Nicotine dependence, unspecified, uncomplicated; G89.29 Other chronic pain; K52.9 Noninfective gastroenteritis and colitis, unspecified; Z59.0 Homelessness; Z91.19 Patient's noncompliance with other medical treatment and regimen; E87.6 Hypokalemia
CPT/HCPCS: 36415; 70450; 71045; 74176; 76705; 80053; 80305; 80320; 81001; 82140; 82948; 83036; 83605; 83735; 83880; 84145; 84484; 85007; 85008; 85025; 86885; 86900; 86901; 87040; 87077; 87081; 87186; 87635; 92508; 92616; 93005; 93306; 94640; 94760; 96361; 96365; 96366; 97110; 97116; 97162; 97530; 97535; 99285; C9113; C9803; G0378; J0696; J1644; J1815; J1940; J2354; J2543; J3490; J7030; P9047